=== PATIENT | male | born 1950 | race Caucasian/White ===

== ENCOUNTER 2017-10-25 21:01 | Inpatient (IN) | payer OTHER, MEDICARE ==
[~2017-10-25] VITALS: Ht 180.3 cm; Wt 79.5 kg
[~2017-10-25 21:01] MED LIST: ADVI200C9; ALLO300; GLYB1TAB51; LISI10TA; LORT5TAB; [UNRECOGNIZED DRUG - CODE]
[2017-10-25 21:12] VITALS: BP 110/59; PULSE 99; RESP 18; TEMP 98.6; O2SAT 99
[2017-10-25] MEDS ORDERED: LANTUS2P SQ (21:28)
[2017-10-25] MEDS ORDERED: ESCI20TA PO (21:28)
[2017-10-25] MEDS ORDERED: METF1000 PO (21:28)
[2017-10-25] MEDS ORDERED: METO5TAB3 PO (21:28)
[2017-10-25] MEDS ORDERED: PANT40TA3 PO (21:28)
[2017-10-25] MEDS ORDERED: PIOG45TA5 PO (21:28)
[2017-10-25] MEDS ORDERED: CLOP75TA PO (21:28)
[2017-10-25] MEDS ORDERED: ROPI0.25 PO (21:28)
[2017-10-25] MEDS ORDERED: ALFU10TA2 PO (21:28)
[2017-10-25] MEDS ORDERED: IBUP200C PO (21:28)
[2017-10-25] MEDS ORDERED: INSU1.2I SQ (21:28)
[2017-10-25] MEDS ORDERED: FINA5TAB2 (21:28)
[2017-10-25] MEDS ORDERED: GABA100C4 PO (21:28)
[2017-10-25] MEDS ORDERED: FURO20TA PO (21:28)
[2017-10-25 21:30] VITALS: BP 126/71; PULSE 91; RESP 20; O2SAT 97
[2017-10-25 22:03] LABS: AUTOMATED NEUTROPHIL # 4.7 TH/MM3 (1.8-7.7); BASOPHIL # 0.1 TH/MM3 (0-0.2); EOSINOPHIL # 0.1 TH/MM3 (0-0.4); EOSINOPHIL % 1.2 % (0.0-4.0); HEMATOCRIT 38.9 % (39.0-51.0); LYMPH % 19.1 % (9.0-44.0); LYMPHOCYTE # 1.3 TH/MM3 (1.0-4.8); MEAN CORPUSCULAR HEMOGLOBIN 29.4 PG (27.0-34.0); MEAN CORPUSCULAR HGB CONC 33.5 % (32.0-36.0); MEAN PLATELET VOLUME 9.7 FL (7.0-11.0); MONO % 7.1 % (0.0-8.0); MONOCYTE # 0.5 TH/MM3 (0-0.9); NEUT % 71.6 % (16.0-70.0); PLATELET COUNT 225 TH/MM3 (150-450); RED BLOOD COUNT 4.43 MIL/MM3 (4.50-5.90); RED CELL DISTRIBUTION WIDTH 13.8 % (11.6-17.2); WHITE BLOOD COUNT 6.6 TH/MM3 (4.0-11.0)
--- NOTE | 2017-10-25 22:07 | RADRPT ---
EXAM DATE/TIME: 10/25/2017 21:39 [place] COMPARISON: No previous studies available for comparison. INDICATIONS : Chest pain MEDICAL HISTORY : Hypertension. Cardiovascular disease. SURGICAL HISTORY : CABG. Coronary artery stent. ENCOUNTER: Initial ACUITY: 1 day PAIN SCORE: 4/10 LOCATION: chest FINDINGS: Median sternotomy wires are noted status post cardiac surgery. The heart is normal. The pulmonary vas cular pattern is normal. The lungs are clear. Degenerative changes are noted throughout the thoracic spine. CONCLUSION: No acute cardiopulmonary disease. Alireza Robert MD on October 25, 2017 at 22:05 Board Certified Radiologist. This report was verified electronically.
[2017-10-25 22:11] LABS: ALBUMIN 3.4 GM/DL (3.4-5.0); ALT (GPT) 17 U/L (12-78); AST (GOT) 11 U/L (15-37); BICARBONATE 25.1 MEQ/L (21.0-32.0); BLOOD UREA NITROGEN 33 MG/DL (7-18); CALCIUM 8.9 MG/DL (8.5-10.1); CHLORIDE 88 MEQ/L (98-107); CREATININE 1.36 MG/DL (0.60-1.30); GLOMERULAR FILTRATION RATE 53 ML/MIN (>89); SODIUM (NA) 127 MEQ/L (136-145)
[2017-10-25 22:18] LABS: ALKALINE PHOSPHATASE 59 U/L (45-117); TOTAL BILIRUBIN ADULT 0.5 MG/DL (0.2-1.0); TOTAL PROTEIN 6.5 GM/DL (6.4-8.2); TROPONIN I LESS THAN 0.02 NG/ML (0.02-0.05)
[2017-10-25 22:19] LABS: GLUCOSE,RANDOM 597 MG/DL (74-106)
[2017-10-25] MEDS ORDERED: INSULIN HUMAN REGULAR 1,000 UNITS/10 ML VIAL IV PUSH ONE ×2 (22:30→23:15)
[2017-10-25] MEDS ORDERED: SODIUM CHLOR 0.9% 250 ML INJ 250 ML IV ONE ×2 (22:30→23:15)
[2017-10-25 22:34] VITALS: BP 132/71; PULSE 79; RESP 16; O2SAT 98
[2017-10-25] MEDS ORDERED: INSULIN HUMAN REGULAR 1,000 UNITS/10 ML VIAL SQ ONE (23:15)
--- NOTE | 2017-10-25 23:22 | PD ---
HPI Chief Complaint: Medical Clearance Time Seen by Provider: 21:21 Travel History International Travel<30 days: No Contact w/Intl Traveler<30days: No Traveled to known affect area: No History of Present Illness HPI Patient is a 66-year-old male who has diabetes CAD open heart surgery history patient has lower leg edema chronic patient is coming in because he was feeling dizzy and chest strangeness. He is not saying pain but it just felt unusual. Patient also had left-sided and right-sided rib area pain but it is reproducible and possibly costochondritis. Patient fingerstick at home his meter goes up to 700 it was over 700 the reading was high. Patient's neighbor brought him in because he was not feeling well feeling nauseous chest pain and the hyperglycemia higher than his meter could detect. He reports he has been eating poorly been cookies and sugar more than he should however he does drink diet soda and diet coffee. In the ER he is awake alert no significant distress and he is nontoxic appearing awake conversant He has a very pleasant caring neighbor friend is bedside .. he is on Lantus 15 units twice daily as well as metoprolol and a few other p.o. anti-hyperglycemic meds Pt and friend reports he is sneeking cookies and soda that maybe the cause of his Hyperglycemia , but there has been no missed doses of his meds PFSH Past Medical History Hx Anticoagulant Therapy: Yes Autoimmune Disease: No Blood Disorders: No Depression: Yes Cancer: Yes Cardiovascular Problems: Yes High Cholesterol: Yes Chest Pain: Yes Cerebrovascular Accident: No Diabetes: Yes (Metformin) Patient Takes Glucophage: Yes Diminished Hearing: Yes Gastrointestinal Disorders: No GERD: Yes Genitourinary: Yes Headaches: No Hypertension: Yes Kidney Stones: Yes Musculoskeletal: No Neurologic: No Psychiatric: No Reproductive: No Respiratory: Yes Seizures: No Tetanus Vaccination: < 5 Years Influenza Vaccination: Yes Past Surgical History Abdominal Surgery: Yes (Colon resection) Cardiac Surgery: No Ear Surgery: Yes Endocrine Surgery: No Eye Surgery: No Genitourinary Surgery: No Gynecologic Surgery: No Joint Replacement: Yes (RT HIP) Oral Surgery: No Thoracic Surgery: No Other Surgery: Yes Social History Alcohol Use: Yes (RARE) Tobacco Use: No (QUIT 11 YRS AGO) Substance Use: No Allergies-Medications (Allergen,Severity, Reaction): Coded Allergies: penicillin G (Unverified Allergy, Mild, RASH, 10/25/17) milk (Unverified Adverse Reaction, Unknown, UPSET STOMACH, 10/25/17) Reported Meds & Prescriptions Reported Meds & Active Scripts Active Reported Ibuprofen 200 Mg Cap 200 Mg PO Q6H PRN Review of Systems Except as stated in HPI: all other systems reviewed are Neg Physical Exam Narrative GENERAL: Nontoxic appearing awake alert SKIN: Warm and dry. HEAD: Atraumatic. Normocephalic. EYES: Pupils equal and round. No scleral icterus. No injection or drainage. ENT: No nasal bleeding or discharge. Mucous membranes pink and moist. NECK: Trachea midline. No JVD. paracervical neck tenderness CARDIOVASCULAR: Regular rate and rhythm. Midline sternotomy scar well-healed RESPIRATORY: No accessory muscle use. Clear to auscultation. Breath sounds equal bilaterally. Clear to auscultation with mild decreased breath sounds in the right lower lung GASTROINTESTINAL: Abdomen soft, non-tender, nondistended. Hepatic and splenic margins not palpable. MUSCULOSKELETAL: Extremities without clubbing, cyanosis, or edema. No obvious deformities. CHEST WALL REPROCUBIBLE PAIN RIGHT LATeral ribs no vesicles no hematoma NEUROLOGICAL: Awake and alert. No obvious cranial nerve deficits. Motor grossly within normal limits. Five out of 5 muscle strength in the arms and legs. Normal speech. PSYCHIATRIC: Appropriate mood and affect; insight and judgment normal. Data Data Last Documented VS Orders Orders Complete Blood Count With Diff (10/25/17 21:30) Comprehensive Metabolic Panel (10/25/17 21:30) Ckmb (Isoenzyme) Profile (10/25/17 21:30) Troponin I (10/25/17 21:30) Lipase (10/25/17 21:30) Chest, Pa & Lat (10/25/17 21:30) Beta Hydroxybutyrate (Acetone) (10/25/17 21:43) Insulin Human Regular Inj (Novolin R Inj (10/25/17 22:30) Sodium Chlor 0.9% 250 Ml Inj (Ns 250 Ml (10/25/17 22:30) Sodium Chlor 0.9% 250 Ml Inj (Ns 250 Ml (10/25/17 23:15) Sodium Chlor 0.9% 1000 Ml Inj (Ns 1000 M (10/25/17 23:15) Insulin Human Regular Inj (Novolin R Inj (10/25/17 23:15) Insulin Human Regular Inj (Novolin R Inj (10/25/17 23:15) Admit Order (Ed Use Only) (10/26/17 00:15) Labs Laboratory Tests Test 10/25/17 21:30 White Blood Count 6.6 TH/MM3 Red Blood Count 4.43 MIL/MM3 Hemoglobin 13.0 GM/DL Hematocrit 38.9 % Mean Corpuscular Volume 88.0 FL Mean Corpuscular Hemoglobin 29.4 PG Mean Corpuscular Hemoglobin Concent 33.5 % Red Cell Distribution Width 13.8 % Platelet Count 225 TH/MM3 Mean Platelet Volume 9.7 FL Neutrophils (%) (Auto) 71.6 % Lymphocytes (%) (Auto) 19.1 % Monocytes (%) (Auto) 7.1 % Eosinophils (%) (Auto) 1.2 % Basophils (%) (Auto) 1.0 % Neutrophils # (Auto) 4.7 TH/MM3 Lymphocytes # (Auto) 1.3 TH/MM3 Monocytes # (Auto) 0.5 TH/MM3 Eosinophils # (Auto) 0.1 TH/MM3 Basophils # (Auto) 0.1 TH/MM3 CBC Comment DIFF FINAL Differential Comment Blood Urea Nitrogen 33 MG/DL Creatinine 1.36 MG/DL Random Glucose 597 MG/DL Total Protein 6.5 GM/DL Albumin 3.4 GM/DL Calcium Level 8.9 MG/DL Alkaline Phosphatase 59 U/L Aspartate Amino Transf (AST/SGOT) 11 U/L Alanine Aminotransferase (ALT/SGPT) 17 U/L Total Bilirubin 0.5 MG/DL Sodium Level 127 MEQ/L Potassium Level 4.3 MEQ/L Chloride Level 88 MEQ/L Carbon Dioxide Level 25.1 MEQ/L Anion Gap 14 MEQ/L Estimat Glomerular Filtration Rate 53 ML/MIN Total Creatine Kinase 69 U/L Troponin I LESS THAN 0.02 NG/ML B-Type Natriuretic Peptide 35 PG/ML Lipase 185 U/L B-Hydroxybutyrate 2.50 MMOL/L MDM Medical Decision Making Medical Screen Exam Complete: Yes Emergency Medical Condition: Yes Differential Diagnosis hyperglycemia of exogenous PO sugar intake vs infection vs lack of exogenous insulin, stress reaction Narrative Course Pt hyperglycemic but not acidotic anion gap 14 I bolus IV 6 units R insulin and then SQ 4 more units and admit for glucose control. Pt is stable for MED SURG admit Scripts Hydrocodone-Acetaminophen (Hydrocodone-Acetaminophen) 5-325 mg Tab 1 TAB PO Q6H Y for PAIN, #30 TAB 0 Refills Prov: Shaun MalinJessenia DO 10/27/17 Adjust Aluminum Cane/Round (Adjust Aluminum Cane/Round) 1 Mis Mis EA .XX DIRECTED for GAIT INSTABILITY, #1 Prov: LizzyuriShaunJessenia DO 10/27/17 Pen Needle, Diabetic (Pen [place]) 32 Gauge X 5/32" Dis.needle BOX BID for Blood Sugar Management, #1 11 Refills Prov: LizzyuriShaun M. DO 10/27/17 Insulin Glargine Inj (Toujeo Solostar Pen Inj) 300 Unit/Ml Pen 30 UNITS SQ BID for Blood Sugar Management for 30 Days, #7 PEN 0 Refills Prov: PraveenShaun guevara DO 10/27/17 Insulin Aspart Inj (Novolog Inj) 1,000 Unit/10 Ml Vial 5 UNITS SQ TIDAC for Blood Sugar Management, #3 INJECTION Prov: Shaun Malin DO 10/27/17 Meclizine HCl (Meclizine 25) 25 Mg Tab 25 MG PO Q8HR for Vertigo, #90 TAB Prov: Shaun Malin DO 10/27/17 Ropinirole (Ropinirole) 0.25 Mg Tab 0.25 MG PO TID for RLS, #90 TAB 0 Refills Prov: PraveenShaun guevara DO 10/27/17 Escitalopram (Escitalopram) 20 Mg Tab 20 MG PO DAILY for Anxiety, #30 TAB 0 Refills Prov: Shaun Malin DO 10/27/17 Finasteride (Finasteride) 5 Mg Tab 5 MG PO DAILY for Manage Prostate Problems, #30 TAB 0 Refills Do not crush. Prov: Shaun Malin DO 10/27/17 Clopidogrel (Clopidogrel) 75 Mg Tab 75 MG PO DAILY for Blood Clot Prevention, #30 TAB 0 Refills Prov: Shaun Malin DO 10/27/17 Metformin (Metformin) 1,000 Mg Tab 1000 MG PO BIDPC for Blood Sugar Management, #60 TAB 0 Refills Prov: Shaun Malin DO 10/27/17 Alfuzosin ER 24 HR (Alfuzosin ER 24 HR) 10 Mg Tab 10 MG PO DAILY for BPH, #30 TAB 0 Refills Prov: Shaun Malin DO 10/27/17 Furosemide (Furosemide) 20 Mg Tab 20 MG PO DAILY for Blood Pressure Management, #30 TAB 0 Refills Prov: Shaun Malin DO 10/27/17 Pioglitazone (Pioglitazone) 45 Mg Tab 45 MG PO DAILY for Blood Sugar Management, #30 TAB 0 Refills Prov: Shaun Malin DO 10/27/17 Metolazone (Metolazone) 5 Mg Tab 5 MG PO DAILY for Blood Pressure Management, #30 TAB 0 Refills Prov: Shaun Malin DO 10/27/17 Gabapentin (Gabapentin) 100 Mg Cap 100 MG PO TID for Pain Management, #90 CAP 0 Refills Prov: Shaun Malin DO 10/27/17 Pantoprazole (Pantoprazole) 40 Mg Tab 40 MG PO BID for Reflux, #60 TAB 0 Refills Prov: Shaun Malin DO 10/27/17 Earl Carrera MD Oct 25, 2017 23:22
[2017-10-26] VITALS (7 sets, daily range): BP systolic 98–128; BP diastolic 47–66; PULSE 76–94; RESP 16–19; TEMP 97.7–98.9; O2SAT 95–99
[2017-10-26] MEDS: SODIUM CHLOR 0.9% 1000 ML INJ 1,000 ML IV SCH ×2 (00:27→13:28)
[2017-10-26] MEDS ORDERED: SODIUM CHLOR 0.9% 1000 ML INJ 1,000 ML IV SCH (00:53)
[2017-10-26] MEDS ORDERED: SENNOSIDES 8.6 MG TAB PO PRN (01:00)
[2017-10-26] MEDS ORDERED: ACETAMINOPHEN 325 MG TAB PO PRN (01:00)
[2017-10-26] MEDS ORDERED: GLUCAGON 1 MG/ML VIAL OTHER PRN (01:00)
[2017-10-26] MEDS ORDERED: SODIUM CHLORIDE 0.9% FLUSH 10 ML FLUSH IV FLUSH PRN (01:00)
[2017-10-26] MEDS ORDERED: ONDANSETRON HCL 4 MG/2 ML VIAL IVP PRN (01:00)
[2017-10-26] MEDS ORDERED: NALOXONE HCL 0.4 MG/ML AMP IV PUSH PRN (01:00)
[2017-10-26] MEDS ORDERED: DEXTROSE 50% IN WATER 50 ML VIAL(D50) IV PUSH PRN (01:00)
[2017-10-26] MEDS ORDERED: MAGNESIUM HYDROXIDE SUSP 30 ML CUP PO PRN (01:00)
[2017-10-26] MEDS ORDERED: LACTULOSE SYRUP 20 GM/30 ML CUP PO PRN (01:00)
[2017-10-26] MEDS ORDERED: BISACODYL 10 MG SUPP RECTAL PRN (01:00)
[2017-10-26] MEDS: HEPARIN SODIUM - SQ 10,000 UNITS/ML VIAL SQ SCH ×2 (01:07→13:28)
--- NOTE | 2017-10-26 01:20 | HHI.HP ---
HPI Service [facility] Primary Care Physician No Primary Care Physician Admission Diagnosis Hyperglycemia Diagnoses: Chief Complaint: Dizziness, uncontrolled blood glucose Travel History International Travel<30 Days: No Contact w/Intl Traveler <30 Da: No Traveled to Known Affected Are: No History of Present Illness 66-year-old male with a medical history significant for coronary artery disease , CHF, diabetes, BPH presented to the hospital with complaint of uncontrolled blood glucose at home, bilateral leg swelling for the past week. Patient reports he lost about 100 pounds over this past year. He states that lately he has been drinking a lot of protein shakes from the gym. He does not read the labels regarding the sugar content. Patient also complained of some rib pain with deep breathing around his chest and flank area. He did say he has fallen a couple of times. He admitted that he has been eating poorly and not watching his diet. His blood glucose reading at home was over 700. He has been given insulin since arrival. He states he is feeling better. No more dizziness. Review of Systems Constitutional: DENIES: Fever, Chills Cardiovascular: COMPLAINS OF: Chest pain Musculoskeletal: COMPLAINS OF: Muscle aches, Stiffness Except as stated in HPI: all other systems reviewed are Neg Past Family Social History Past Medical History coronary artery disease, CHF, diabetes, BPH Past Surgical History Colon resection History of CABG Multiple cystoscopy Reported Medications Reported Meds & Active Scripts Active Reported Saad Tompkins Pen Inj (Insulin Glargine) 300 Unit/Ml Pen 30 Units SQ HS Lantus Inj (Insulin Glargine) 1,000 Unit/10 Ml Vial 15 Units SQ BID Ibuprofen 200 Mg Cap 200 Mg PO Q6H PRN Ropinirole 0.25 Mg Tab 0.25 Mg PO TID Escitalopram (Escitalopram Oxalate) 20 Mg Tab 20 Mg PO DAILY Finasteride 5 Mg Tab 5 Mg DAILY Do not crush. Clopidogrel (Clopidogrel Bisulfate) 75 Mg Tab 75 Mg PO DAILY Metformin (Metformin HCl) 1,000 Mg Tab 1,000 Mg PO BIDPC Alfuzosin ER 24 HR 10 Mg Tab 10 Mg PO DAILY Furosemide 20 Mg Tab 20 Mg PO DAILY Pioglitazone (Pioglitazone HCl) 45 Mg Tab 45 Mg PO DAILY Metolazone 5 Mg Tab 5 Mg PO DAILY Gabapentin 100 Mg Cap 100 Mg PO TID Pantoprazole (Pantoprazole Sodium) 40 Mg Tab 40 Mg PO BID [ Actoplus/Met] Allergies: Coded Allergies: penicillin G (Unverified Allergy, Mild, RASH, 10/25/17) milk (Unverified Adverse Reaction, Unknown, UPSET STOMACH, 10/25/17) Family History Reviewed and found to be noncontributory. Social History Patient quit using tobacco and alcohol 25 years ago. Physical Exam Vital Signs Vital Signs Date Time Temp Pulse Resp B/P (MAP) Pulse Ox O2 Delivery O2 Flow Rate FiO2 10/26/17 01:07 94 16 110/55 (73) 97 Room Air 10/25/17 22:34 79 16 132/71 (91) 98 Room Air 10/25/17 21:32 20 18 10/25/17 21:30 91 20 126/71 (89) 97 Room Air 10/25/17 21:12 98.6 99 18 110/59 (76) 99 Physical Exam GENERAL: Appears older than stated age. SKIN: No rashes, ecchymoses or lesions. Cool and dry. HEAD: Atraumatic. Normocephalic. No temporal or scalp tenderness. EYES: Pupils equal round and reactive. Extraocular motions intact. No scleral icterus. No injection or drainage. ENT: Nose without drainage. Uvula midline. Airway patent. NECK: Trachea midline. No JVD or lymphadenopathy. Supple, nontender, no meningeal signs. CARDIOVASCULAR: Regular rate and rhythm without murmurs, gallops, or rubs. RESPIRATORY: Clear to auscultation. Breath sounds equal bilaterally. No wheezes , rales, or rhonchi. GASTROINTESTINAL: Abdomen soft, non-tender, nondistended. No hepato-splenomegaly , or palpable masses. No guarding. MUSCULOSKELETAL: Some diffuse discomfort when I press on his rib cage. 2+ lower extremity edema NEUROLOGICAL: Awake and alert. Normal speech. Laboratory Laboratory Tests Test 10/25/17 21:30 White Blood Count 6.6 Red Blood Count 4.43 Hemoglobin 13.0 Hematocrit 38.9 Mean Corpuscular Volume 88.0 Mean Corpuscular Hemoglobin 29.4 Mean Corpuscular Hemoglobin Concent 33.5 Red Cell Distribution Width 13.8 Platelet Count 225 Mean Platelet Volume 9.7 Neutrophils (%) (Auto) 71.6 Lymphocytes (%) (Auto) 19.1 Monocytes (%) (Auto) 7.1 Eosinophils (%) (Auto) 1.2 Basophils (%) (Auto) 1.0 Neutrophils # (Auto) 4.7 Lymphocytes # (Auto) 1.3 Monocytes # (Auto) 0.5 Eosinophils # (Auto) 0.1 Basophils # (Auto) 0.1 CBC Comment DIFF FINAL Differential Comment Blood Urea Nitrogen 33 Creatinine 1.36 Random Glucose 597 Total Protein 6.5 Albumin 3.4 Calcium Level 8.9 Alkaline Phosphatase 59 Aspartate Amino Transf (AST/SGOT) 11 Alanine Aminotransferase (ALT/SGPT) 17 Total Bilirubin 0.5 Sodium Level 127 Potassium Level 4.3 Chloride Level 88 Carbon Dioxide Level 25.1 Anion Gap 14 Estimat Glomerular Filtration Rate 53 Total Creatine Kinase 69 Troponin I LESS THAN 0.02 Lipase 185 B-Hydroxybutyrate 2.50 Result Diagram: 10/25/17212910/25/172129 Imaging Last Impressions Chest X-Ray 10/25/172129 Signed Impressions: Service Date/Time: October 21:39 - CONCLUSION: No acute cardiopulmonary disease. Alireza Robert MD Capterei VTE Risk Assessment Caprini VTE Risk Assessment: Mod/High Risk (score >= 2) Caprini Risk Assessment Model Point Value = 1 Point Value = 2 Point Value = 3 Point Value = 5 Age 41-60 Minor surgery BMI > 25 kg/m2 Swollen legs Varicose veins or History of unexplained or recurrent spontaneous Oral contraceptives or hormone replacement Sepsis (< 1 month) Serious lung disease, including pneumonia (< 1 month) Abnormal pulmonary function Acute myocardial infarction Congestive heart failure (< 1 month) History of inflammatory bowel disease Medical patient at bed rest Age 61-74 Arthroscopic surgery Major open surgery (> 45 min) Laparoscopic surgery (> 45 min) Malignancy Confined to bed (> 72 hours) Immobilizing plaster cast Central venous access Age >= 75 History of VTE Family history of VTE Factor V Leiden Prothrombin [id number] Lupus anticoagulant Anticardiolipin antibodies Elevated serum homocysteine Heparin-induced thrombocytopenia Other congenital or acquired thrombophilia Stroke (< 1 month) Elective arthroplasty Hip, pelvis, or leg fracture Acute spinal cord injury (< 1 month) Prophylaxis Regimen Total Risk Factor Score Risk Level Prophylaxis Regimen 0-1 Low Early ambulation 2 Moderate Order ONE of the following: *Sequential Compression Device (SCD) *Heparin 5000 units SQ BID 3-4 Higher Order ONE of the following medications: *Heparin 5000 units SQ TID *Enoxaparin/Lovenox 40 mg SQ daily (WT < 150 kg, CrCl > 30 mL/min) *Enoxaparin/Lovenox 30 mg SQ daily (WT < 150 kg, CrCl > 10-29 mL/min) *Enoxaparin/Lovenox 30 mg SQ BID (WT < 150 kg, CrCl > 30 mL/min) AND/OR *Sequential Compression Device (SCD) 5 or more Highest Order ONE of the following medications: *Heparin 5000 units SQ TID (Preferred with Epidurals) *Enoxaparin/Lovenox 40 mg SQ daily (WT < 150 kg, CrCl > 30 mL/min) *Enoxaparin/Lovenox 30 mg SQ daily (WT < 150 kg, CrCl > 10-29 mL/min) *Enoxaparin/Lovenox 30 mg SQ BID (WT < 150 kg, CrCl > 30 mL/min) AND *Sequential Compression Device (SCD) Assessment and Plan Problem List: (1) Diabetes ICD Code: E11.9 - Type 2 diabetes mellitus without complications Plan: With marked hyperglycemia on presentation. Suspect this is secondary to noncompliance with diet. Patient has been given gentle IV fluid hydration and insulin. - Resume Lantus 15 units twice daily -Sliding scale insulin with Accu-Cheks. (2) Lower extremity edema ICD Code: R60.0 - Localized edema Plan: Patient reports he has intermittent edema but it has been worse over the past week or so. He is on Lasix and metolazone. No overt evidence of heart failure. He does need IV fluid at this time due to marked hyperglycemia as above. CYNTHIA recinos for now. Consider resuming diuretics once hyperglycemia better controlled and renal function improved.. (3) CAD (coronary artery disease) ICD Code: I25.10 - Atherosclerotic heart disease of [place] coronary artery without angina pectoris Status: Chronic Plan: Continue Plavix (4) Dehydration with hyponatremia ICD Code: E87.1 - Hypo-osmolality and hyponatremia (5) RADHA (acute kidney injury) ICD Code: N17.9 - Acute kidney failure, unspecified Plan: Gentle hydration Monitor renal functions. Hold diuretics Discussed Condition With Dr. Carrera Physician Certification 2 Midnight Certification Type: Admission for Inpatient Services Order for Inpatient Services The services are ordered in accordance with Medicare regulations or non- Medicare payer requirements, as applicable. In the case of services not specified as inpatient-only, they are appropriately provided as inpatient services in accordance with the 2-midnight benchmark. Estimated LOS (days): 2 days is the estimated time the patient will need to remain in the hospital, assuming treatment plan goals are met and no additional complications. Post-Hospital Plan: Home Problem Qualifiers (1) Diabetes: Qualified Codes: E11.65 - Type 2 diabetes mellitus with hyperglycemia; Z79.4 - salvage determiner (current) use of insulin Rojelio Shankar MD Oct 26, 2017 01:20
[2017-10-26 07:42] LABS: BICARBONATE 23.7 MEQ/L (21.0-32.0); CALCIUM 8.6 MG/DL (8.5-10.1); CREATININE 0.88 MG/DL (0.60-1.30)
[2017-10-26] MEDS ORDERED: INSULIN DETEMIR 100 UNITS/ML VIAL SQ SCH (09:00)
[2017-10-26] MEDS: FINASTERIDE 5 MG TAB PO SCH (11:08)
[2017-10-26] MEDS: PANTOPRAZOLE SOD 40 MG DELAYED RELEASE TAB PO SCH ×2 (11:08→21:46)
[2017-10-26] MEDS: GABAPENTIN 100 MG CAP PO SCH ×3 (11:09→18:46)
[2017-10-26] MEDS: ESCITALOPRAM OXALATE 20 MG TAB PO SCH (11:09)
[2017-10-26] MEDS: CLOPIDOGREL 75 MG TAB PO SCH (11:09)
[2017-10-26] MEDS: TAMSULOSIN HCL 0.4 MG CAP PO SCH (11:09)
[2017-10-26] MEDS: INSULIN ASPART SUPPLEMENTAL SCALE SQ SCH ×4 (11:11→22:04)
[2017-10-26] MEDS: SODIUM CHLORIDE 0.9% FLUSH 10 ML FLUSH IV FLUSH SCH ×2 (13:27→21:48)
--- NOTE | 2017-10-26 13:42 | HHI.PR ---
Subjective Remarks 66-year-old male with a medical history significant for coronary artery disease , CHF, diabetes, BPH presented to the hospital with complaint of uncontrolled blood glucose at home, bilateral leg swelling for the past week. Patient reports he lost about 100 pounds over this past year. He states that lately he has been drinking a lot of protein shakes from the gym. He does not read the labels regarding the sugar content. Patient also complained of some rib pain with deep breathing around his chest and flank area. He did say he has fallen a couple of times. He admitted that he has been eating poorly and not watching his diet. His blood glucose reading at home was over 700. He has been given insulin since arrival. He states he is feeling better. No more dizziness. 3-2 COMPLAINS OF DIZZINESS WEAKNESS UNCONTROLLED BLOOD SUGARS DW RN AND PT DM EDUCATION CONSULT NUTRITION Objective Vitals Vital Signs Date Time Temp Pulse Resp B/P (MAP) Pulse Ox O2 Delivery O2 Flow Rate FiO2 10/26/17 12:14 98.5 87 18 119/66 (83) 98 10/26/17 08:00 98.3 76 19 98/47 (64) 97 10/26/17 01:56 97.7 87 16 128/58 (81) 99 10/26/17 01:36 10/26/17 01:07 94 16 110/55 (73) 97 Room Air 10/25/17 22:34 79 16 132/71 (91) 98 Room Air 10/25/17 21:32 20 18 10/25/17 21:30 91 20 126/71 (89) 97 Room Air 10/25/17 21:12 98.6 99 18 110/59 (76) 99 I/O 10/25/17 10/25/17 10/25/17 10/26/17 10/26/17 10/26/17 07:00 15:00 23:00 07:00 15:00 23:00 Intake Total 500 ml 720 ml Output Total 850 ml Balance 500 ml -130 ml Intake Oral 720 ml IV Total 500 ml Output Urine Total 850 ml # Voids 2 # Bowel Movements 0 Result Diagram: 10/25/17 2130 10/26/17 0629 Other Results Laboratory Tests Test 10/25/17 21:30 10/26/17 06:29 White Blood Count 6.6 TH/MM3 Red Blood Count 4.43 MIL/MM3 Hemoglobin 13.0 GM/DL Hematocrit 38.9 % Mean Corpuscular Volume 88.0 FL Mean Corpuscular Hemoglobin 29.4 PG Mean Corpuscular Hemoglobin Concent 33.5 % Red Cell Distribution Width 13.8 % Platelet Count 225 TH/MM3 Mean Platelet Volume 9.7 FL Neutrophils (%) (Auto) 71.6 % Lymphocytes (%) (Auto) 19.1 % Monocytes (%) (Auto) 7.1 % Eosinophils (%) (Auto) 1.2 % Basophils (%) (Auto) 1.0 % Neutrophils # (Auto) 4.7 TH/MM3 Lymphocytes # (Auto) 1.3 TH/MM3 Monocytes # (Auto) 0.5 TH/MM3 Eosinophils # (Auto) 0.1 TH/MM3 Basophils # (Auto) 0.1 TH/MM3 CBC Comment DIFF FINAL Differential Comment Blood Urea Nitrogen 33 MG/DL 35 MG/DL Creatinine 1.36 MG/DL 0.88 MG/DL Random Glucose 597 MG/DL 296 MG/DL Total Protein 6.5 GM/DL Albumin 3.4 GM/DL Calcium Level 8.9 MG/DL 8.6 MG/DL Alkaline Phosphatase 59 U/L Aspartate Amino Transf (AST/SGOT) 11 U/L Alanine Aminotransferase (ALT/SGPT) 17 U/L Total Bilirubin 0.5 MG/DL Sodium Level 127 MEQ/L 132 MEQ/L Potassium Level 4.3 MEQ/L 3.8 MEQ/L Chloride Level 88 MEQ/L 97 MEQ/L Carbon Dioxide Level 25.1 MEQ/L 23.7 MEQ/L Anion Gap 14 MEQ/L 11 MEQ/L Estimat Glomerular Filtration Rate 53 ML/MIN 87 ML/MIN Total Creatine Kinase 69 U/L Troponin I LESS THAN 0.02 NG/ML B-Type Natriuretic Peptide 35 PG/ML Lipase 185 U/L B-Hydroxybutyrate 2.50 MMOL/L Imaging Last Impressions Chest X-Ray 10/25/172129 Signed Impressions: Service Date/Time: October 21:39 - CONCLUSION: No acute cardiopulmonary disease. Alireza Robert MD Objective Remarks GENERAL: Appears older than stated age. SKIN: No rashes, ecchymoses or lesions. Cool and dry. HEAD: Atraumatic. Normocephalic. No temporal or scalp tenderness. EYES: Pupils equal round and reactive. Extraocular motions intact. No scleral icterus. No injection or drainage. ENT: Nose without drainage. Uvula midline. Airway patent. Tongue is midline NECK: Trachea midline. No JVD or lymphadenopathy. Supple, nontender, no meningeal signs. CARDIOVASCULAR: Regular rate and rhythm without murmurs, gallops, or rubs. S1- S2 no S3 or S4 RESPIRATORY: Clear to auscultation. Breath sounds equal bilaterally. No wheezes , rales, or rhonchi. GASTROINTESTINAL: Abdomen soft, non-tender, nondistended. No hepato-splenomegaly , or palpable masses. No guarding. MUSCULOSKELETAL: Some diffuse discomfort when I press on his rib cage. 2 to 3+ lower extremity edema left great toe amputated NEUROLOGICAL: Awake and alert. Normal speech. Insight and judgment is somewhat limited mood and behavior is somewhat appropriate Medications and IVs Current Medications Insulin Human Regular (NovoLIN R INJ) 6 units ONCE ONCE IV PUSH Last administered on 10/25/17at 22:31; Start 10/25/17 at 22:30; Stop 10/25/17 at 23:16; Status DC Sodium Chloride 250 ml @ 250 mls/hr BOLUS ONCE IV Last administered on at 22:31; Start 10/25/17 at 22:30; Stop 10/25/17 at 23:29; Status DC Sodium Chloride 250 ml @ 250 mls/hr BOLUS ONCE IV Last administered on at 23:27; Start 10/25/17 at 23:15; Stop 10/26/17 at 00:14; Status DC Sodium Chloride 1,000 ml @ 84 mls/hr [id number] IV Last administered on 10/26/17at 00:27; Start 10/25/17 at 23:15; Stop 10/26/17 at 00:59; Status DC Insulin Human Regular (NovoLIN R INJ) 6 units ONCE ONCE IV PUSH Last administered on 10/25/17at 23:27; Start 10/25/17 at 23:15; Stop 10/25/17 at 23:16; Status DC Insulin Human Regular (NovoLIN R INJ) 4 units ONCE ONCE SQ Last administered on 10/25/17at 23:27; Start 10/25/17 at 23:15; Stop 10/25/17 at 23:17; Status DC Sodium Chloride 1,000 ml @ 100 mls/hr Q10H IV ; Start 10/26/17 at 00:53; Stop at 01:14; Status DC Sodium Chloride (NS Flush) 2 ml UNSCH PRN IV FLUSH FLUSH AFTER USING IV ACCESS ; Start 10/26/17 at 01:00 Sodium Chloride (NS Flush) 2 ml BID IV FLUSH ; Start 10/26/17 at 09:00 Acetaminophen (Tylenol) 650 mg Q4H PRN PO TEMP > 100.4; Start 10/26/17 at 01:00 Ondansetron HCl (Zofran Inj) 4 mg Q6H PRN IVP NAUSEA OR VOMITING; Start at 01:00 Heparin Sodium (Porcine) (Heparin Inj) 5,000 units Q12H SQ Last administered on 10/26/17at 01:07; Start 10/26/17 at 01:00 Naloxone HCl (Narcan Inj) 0.4 mg UNSCH PRN IV PUSH SEE LABEL COMMENTS; Start at 01:00 Magnesium Hydroxide (Milk Of Magnesia Liq) 30 ml Q12H PRN PO Mild constipation ; Start 10/26/17 at 01:00 Sennosides (Senokot) 17.2 mg Q12H PRN PO Moderate constipation; Start 10/26/17 at 01:00 Bisacodyl (Dulcolax Supp) 10 mg DAILY PRN RECTAL SEVERE CONSITIPATION; Start at 01:00 Lactulose (Lactulose Liq) 30 ml DAILY PRN PO SEVERE CONSITIPATION; Start at 01:00 Dextrose (D50w (Vial) Inj) 50 ml UNSCH PRN IV PUSH HYPOGLYCEMIA-SEE COMMENTS; Start 10/26/17 at 01:00 Glucagon (Glucagon Inj) 1 mg UNSCH PRN OTHER HYPOGLYCEMIA-SEE COMMENTS; Start 10/26/17 at 01:00 Insulin Aspart (NovoLOG SUPPLEMENTAL SCALE) 1 ACHS SLIDING SCALE SQ Last administered on 10/26/17at 11:11; Start 10/26/17 at 08:00 Clopidogrel Bisulfate (Plavix) 75 mg DAILY PO Last administered on 10/26/17at 11: 09; Start 10/26/17 at 09:00 Escitalopram Oxalate (Lexapro) 20 mg DAILY PO Last administered on 10/26/17 11: 09; Start 10/26/17 at 09:00 Finasteride (Proscar) 5 mg DAILY PO Last administered on 10/26/17 11:08; Start 10/26/17 at 09:00 Gabapentin (Neurontin) 100 mg TID PO Last administered on 10/26/17 11:09; Start 10/26/17 at 09:00 Insulin Detemir (Levemir Inj) 15 units BID SQ Last administered on 10/26/17 11: 10; Start 10/26/17 at 09:00 Pantoprazole Sodium (Protonix) 40 mg BID PO Last administered on 10/26/17 11:08 ; Start 10/26/17 at 09:00 Ropinirole HCl (Requip) 0.25 mg TID PO Last administered on 10/26/17 11:08; Start 10/26/17 at 09:00 Tamsulosin HCl (Flomax) 0.4 mg DAILY PO Last administered on 10/26/17 11:09; Start 10/26/17 at 09:00 A/P Problem List: (1) Diabetes ICD Code: E11.9 - Type 2 diabetes mellitus without complications Plan: With marked hyperglycemia on presentation. Suspect this is secondary to noncompliance with diet. Patient has been given gentle IV fluid hydration and insulin. - Resume Lantus 15 units twice daily -Sliding scale insulin with Accu-Cheks. (2) Lower extremity edema ICD Code: R60.0 - Localized edema Plan: Patient reports he has intermittent edema but it has been worse over the past week or so. He is on Lasix and metolazone. No overt evidence of heart failure. He does need IV fluid at this time due to marked hyperglycemia as above. CYNTHIA recinos for now. Consider resuming diuretics once hyperglycemia better controlled and renal function improved.. (3) CAD (coronary artery disease) ICD Code: I25.10 - Atherosclerotic heart disease of [place] coronary artery without angina pectoris Status: Chronic Plan: Continue Plavix (4) Dehydration with hyponatremia ICD Code: E87.1 - Hypo-osmolality and hyponatremia (5) RADHA (acute kidney injury) ICD Code: N17.9 - Acute kidney failure, unspecified Plan: Gentle hydration Monitor renal functions. Hold diuretics (6) Vertigo ICD Code: R42 - Dizziness and giddiness Plan: Antivert schedule (7) Generalized weakness ICD Code: R53.1 - Weakness Plan: PT and OT to eval and treat Assessment and Plan (1) Diabetes ICD Code: E11.9 - Type 2 diabetes mellitus without complications Plan: With marked hyperglycemia on presentation. Suspect this is secondary to noncompliance with diet. Patient has been given gentle IV fluid hydration and insulin. - Resume Lantus 15 units twice daily -Sliding scale insulin with Accu-Cheks. (2) Lower extremity edema ICD Code: R60.0 - Localized edema Plan: Patient reports he has intermittent edema but it has been worse over the past week or so. He is on Lasix and metolazone. No overt evidence of heart failure. He does need IV fluid at this time due to marked hyperglycemia as above. CYNTHIA jorje for now. Consider resuming diuretics once hyperglycemia better controlled and renal function improved.. (3) CAD (coronary artery disease) ICD Code: I25.10 - Atherosclerotic heart disease of [place] coronary artery without angina pectoris Status: Chronic Plan: Continue Plavix (4) Dehydration with hyponatremia ICD Code: E87.1 - Hypo-osmolality and hyponatremia (5) RADHA (acute kidney injury) ICD Code: N17.9 - Acute kidney failure, unspecified Plan: Gentle hydration Monitor renal functions. Hold diuretics Vertigo will add Antivert Gait instability and weakness We will add physical therapy and Occupational Therapy AM LABS Discharge Planning PENDING IMPROVEMENT OF BLOOD SUGARS DM EDUCATION Problem Qualifiers (1) Diabetes: Qualified Codes: E11.65 - Type 2 diabetes mellitus with hyperglycemia; Z79.4 - [facility] (current) use of insulin Shaun Malin DO Oct 26, 2017 13:42
[2017-10-26] MEDS: METOLAZONE 5 MG TAB PO SCH (17:02)
[2017-10-26] MEDS: PIOGLITAZONE HCL 45 MG TAB PO SCH (17:02)
[2017-10-26] MEDS: MECLIZINE HCL 25 MG TAB PO SCH ×2 (17:03→21:46)
--- NOTE | 2017-10-26 18:06 | EKG ---
Date Performed: 10/25/2017 Time Performed: 21:26:29 PTAGE: 66 years EKG: Normal Sinus rhythm with bigeminal PACs Intraventricular conduction delay Compared to previous tracing, the patient is n ow in an atrial bigeminy with an intraventricular conduction delay. ABNORMAL ECG PREVIOUS TRACING : 04/13/2005 09.35 DOCTOR: Krys Greer Interpretating Date/Time 10/26/2017 18:05:44
[2017-10-26] MEDS: INSULIN ASPART 1,000 UNITS/10 ML VIAL SQ SCH (18:47)
[2017-10-26] MEDS: INSULIN DETEMIR 100 UNITS/ML VIAL SQ SCH (22:05)
[2017-10-27] MEDS: HEPARIN SODIUM - SQ 10,000 UNITS/ML VIAL SQ SCH (01:09)
[2017-10-27 04:33] VITALS: BP 100/56; PULSE 78; RESP 18; TEMP 97.9; O2SAT 96
[2017-10-27 05:43] LABS: AUTOMATED NEUTROPHIL # 2.4 TH/MM3 (1.8-7.7); BASOPHIL % 1.1 % (0.0-2.0); EOSINOPHIL # 0.1 TH/MM3 (0-0.4); EOSINOPHIL % 2.4 % (0.0-4.0); HEMATOCRIT 34.5 % (39.0-51.0); HEMOGLOBIN 12.1 GM/DL (13.0-17.0); LYMPH % 36.5 % (9.0-44.0); LYMPHOCYTE # 1.7 TH/MM3 (1.0-4.8); MEAN CELL VOLUME 85.5 FL (80.0-100.0); MEAN CORPUSCULAR HEMOGLOBIN 29.9 PG (27.0-34.0); MONO % 7.3 % (0.0-8.0); MONOCYTE # 0.3 TH/MM3 (0-0.9); NEUT % 52.7 % (16.0-70.0); PLATELET COUNT 204 TH/MM3 (150-450); RED BLOOD COUNT 4.03 MIL/MM3 (4.50-5.90); RED CELL DISTRIBUTION WIDTH 13.9 % (11.6-17.2); WHITE BLOOD COUNT 4.6 TH/MM3 (4.0-11.0)
[2017-10-27 06:15] LABS: ALBUMIN 2.6 GM/DL (3.4-5.0); AST (GOT) 9 U/L (15-37); BICARBONATE 26.5 MEQ/L (21.0-32.0); BLOOD UREA NITROGEN 23 MG/DL (7-18); CALCIUM 8.4 MG/DL (8.5-10.1); CHLORIDE 104 MEQ/L (98-107); CREATININE 0.79 MG/DL (0.60-1.30); GLOMERULAR FILTRATION RATE 99 ML/MIN (>89); GLUCOSE,RANDOM 189 MG/DL (74-106); MAGNESIUM 1.8 MG/DL (1.5-2.5); SODIUM (NA) 138 MEQ/L (136-145)
[2017-10-27 06:21] LABS: ALKALINE PHOSPHATASE 39 U/L (45-117); ALT (GPT) 12 U/L (12-78); FREE T4 0.96 NG/DL (0.76-1.46); PHOSPHORUS 3.4 MG/DL (2.5-4.9); TOTAL BILIRUBIN ADULT 0.2 MG/DL (0.2-1.0); TOTAL PROTEIN 5.2 GM/DL (6.4-8.2)
[2017-10-27] MEDS: MECLIZINE HCL 25 MG TAB PO SCH (06:37)
[2017-10-27 08:15] VITALS: BP 139/68; PULSE 72; RESP 18; TEMP 97.9; O2SAT 96
[2017-10-27] MEDS ORDERED: FUROSEMIDE 20 MG TAB PO SCH (09:00)
[2017-10-27] MEDS: GABAPENTIN 100 MG CAP PO SCH (09:36)
[2017-10-27] MEDS: FINASTERIDE 5 MG TAB PO SCH (09:36)
[2017-10-27] MEDS: PIOGLITAZONE HCL 45 MG TAB PO SCH (09:36)
[2017-10-27] MEDS: CLOPIDOGREL 75 MG TAB PO SCH (09:36)
[2017-10-27] MEDS: ESCITALOPRAM OXALATE 20 MG TAB PO SCH (09:36)
[2017-10-27] MEDS: PANTOPRAZOLE SOD 40 MG DELAYED RELEASE TAB PO SCH (09:36)
[2017-10-27] MEDS: TAMSULOSIN HCL 0.4 MG CAP PO SCH (09:36)
[2017-10-27] MEDS: INSULIN DETEMIR 100 UNITS/ML VIAL SQ SCH (09:37)
[2017-10-27] MEDS: METOLAZONE 5 MG TAB PO SCH (09:37)
[2017-10-27] MEDS: INSULIN ASPART SUPPLEMENTAL SCALE SQ SCH (09:38)
[2017-10-27] MEDS: SODIUM CHLORIDE 0.9% FLUSH 10 ML FLUSH IV FLUSH SCH (09:39)
[2017-10-27] MEDS: INSULIN ASPART 1,000 UNITS/10 ML VIAL SQ SCH (09:39)
--- NOTE | 2017-10-27 11:57 | HHI.PR ---
Subjective Remarks 66-year-old male with a medical history significant for coronary artery disease , CHF, diabetes, BPH presented to the hospital with complaint of uncontrolled blood glucose at home, bilateral leg swelling for the past week. Patient reports he lost about 100 pounds over this past year. He states that lately he has been drinking a lot of protein shakes from the gym. He does not read the labels regarding the sugar content. Patient also complained of some rib pain with deep breathing around his chest and flank area. He did say he has fallen a couple of times. He admitted that he has been eating poorly and not watching his diet. His blood glucose reading at home was over 700. He has been given insulin since arrival. He states he is feeling better. No more dizziness. 3-2 COMPLAINS OF DIZZINESS WEAKNESS UNCONTROLLED BLOOD SUGARS DW RN AND PT DM EDUCATION CONSULT NUTRITION 3-3 WANTS TO GO HOME TODAY SEEN BY PT AND OT WANTS HHC DW RN AND PT DC TO HOME TODAY DM MEDS ADJUSTED NEEDS NEW PCP FOR FOLLOW UP Objective Vitals Vital Signs Date Time Temp Pulse Resp B/P (MAP) Pulse Ox O2 Delivery O2 Flow Rate FiO2 10/27/17 08:15 97.9 72 18 139/68 (91) 96 10/27/17 04:33 97.9 78 18 100/56 (71) 96 10/26/17 23:44 98.4 78 18 98/52 (67) 95 10/26/17 20:40 98.1 81 18 100/64 (76) 95 10/26/17 15:31 98.9 81 18 105/55 (72) 97 10/26/17 12:14 98.5 87 18 119/66 (83) 98 I/O 10/26/17 10/26/17 10/26/17 10/27/17 10/27/17 10/27/17 07:00 15:00 23:00 07:00 15:00 23:00 Intake Total 500 ml 1200 ml Output Total 850 ml Balance 500 ml 350 ml Intake Oral 1200 ml IV Total 500 ml Output Urine Total 850 ml # Voids 2 # Bowel Movements 0 Result Diagram: 10/27/17 0455 10/27/17 0455 Other Results Laboratory Tests Test 10/25/17 21:30 10/26/17 06:29 10/27/17 04:55 White Blood Count 6.6 TH/MM3 4.6 TH/MM3 Red Blood Count 4.43 MIL/MM3 4.03 MIL/MM3 Hemoglobin 13.0 GM/DL 12.1 GM/DL Hematocrit 38.9 % 34.5 % Mean Corpuscular Volume 88.0 FL 85.5 FL Mean Corpuscular Hemoglobin 29.4 PG 29.9 PG Mean Corpuscular Hemoglobin Concent 33.5 % 35.0 % Red Cell Distribution Width 13.8 % 13.9 % Platelet Count 225 TH/MM3 204 TH/MM3 Mean Platelet Volume 9.7 FL 9.0 FL Neutrophils (%) (Auto) 71.6 % 52.7 % Lymphocytes (%) (Auto) 19.1 % 36.5 % Monocytes (%) (Auto) 7.1 % 7.3 % Eosinophils (%) (Auto) 1.2 % 2.4 % Basophils (%) (Auto) 1.0 % 1.1 % Neutrophils # (Auto) 4.7 TH/MM3 2.4 TH/MM3 Lymphocytes # (Auto) 1.3 TH/MM3 1.7 TH/MM3 Monocytes # (Auto) 0.5 TH/MM3 0.3 TH/MM3 Eosinophils # (Auto) 0.1 TH/MM3 0.1 TH/MM3 Basophils # (Auto) 0.1 TH/MM3 0.0 TH/MM3 CBC Comment DIFF FINAL DIFF FINAL Differential Comment Blood Urea Nitrogen 33 MG/DL 35 MG/DL 23 MG/DL Creatinine 1.36 MG/DL 0.88 MG/DL 0.79 MG/DL Random Glucose 597 MG/DL 296 MG/DL 189 MG/DL Total Protein 6.5 GM/DL 5.2 GM/DL Albumin 3.4 GM/DL 2.6 GM/DL Calcium Level 8.9 MG/DL 8.6 MG/DL 8.4 MG/DL Alkaline Phosphatase 59 U/L 39 U/L Aspartate Amino Transf (AST/SGOT) 11 U/L 9 U/L Alanine Aminotransferase (ALT/SGPT) 17 U/L 12 U/L Total Bilirubin 0.5 MG/DL 0.2 MG/DL Sodium Level 127 MEQ/L 132 MEQ/L 138 MEQ/L Potassium Level 4.3 MEQ/L 3.8 MEQ/L 3.7 MEQ/L Chloride Level 88 MEQ/L 97 MEQ/L 104 MEQ/L Carbon Dioxide Level 25.1 MEQ/L 23.7 MEQ/L 26.5 MEQ/L Anion Gap 14 MEQ/L 11 MEQ/L 8 MEQ/L Estimat Glomerular Filtration Rate 53 ML/MIN 87 ML/MIN 99 ML/MIN Total Creatine Kinase 69 U/L Troponin I LESS THAN 0.02 NG/ML B-Type Natriuretic Peptide 35 PG/ML Lipase 185 U/L B-Hydroxybutyrate 2.50 MMOL/L Phosphorus Level 3.4 MG/DL Magnesium Level 1.8 MG/DL Free Thyroxine 0.96 NG/DL Thyroid Stimulating Hormone 3rd Gen 0.845 uIU/ML Imaging Last Impressions Chest X-Ray 10/25/172129 Signed Impressions: Service Date/Time: October 21:39 - CONCLUSION: No acute cardiopulmonary disease. Alireza Robert MD Objective Remarks GENERAL: Appears older than stated age. SKIN: No rashes, ecchymoses or lesions. Cool and dry. HEAD: Atraumatic. Normocephalic. No temporal or scalp tenderness. EYES: Pupils equal round and reactive. Extraocular motions intact. No scleral icterus. No injection or drainage. ENT: Nose without drainage. Uvula midline. Airway patent. Tongue is midline NECK: Trachea midline. No JVD or lymphadenopathy. Supple, nontender, no meningeal signs. CARDIOVASCULAR: Regular rate and rhythm without murmurs, gallops, or rubs. S1- S2 no S3 or S4 RESPIRATORY: Clear to auscultation. Breath sounds equal bilaterally. No wheezes , rales, or rhonchi. GASTROINTESTINAL: Abdomen soft, non-tender, nondistended. No hepato-splenomegaly , or palpable masses. No guarding. MUSCULOSKELETAL: Some diffuse discomfort when I press on his rib cage. 2 to 3+ lower extremity edema left great toe amputated NEUROLOGICAL: Awake and alert. Normal speech. Insight and judgment is somewhat limited mood and behavior is somewhat appropriate Procedures NONE Medications and IVs Current Medications Insulin Human Regular (NovoLIN R INJ) 6 units ONCE ONCE IV PUSH Last administered on 10/25/17at 22:31; Start 10/25/17 at 22:30; Stop 10/25/17 at 23:16; Status DC Sodium Chloride 250 ml @ 250 mls/hr BOLUS ONCE IV Last administered on at 22:31; Start 10/25/17 at 22:30; Stop 10/25/17 at 23:29; Status DC Sodium Chloride 250 ml @ 250 mls/hr BOLUS ONCE IV Last administered on at 23:27; Start 10/25/17 at 23:15; Stop 10/26/17 at 00:14; Status DC Sodium Chloride 1,000 ml @ 84 mls/hr [id number] IV Last administered on 10/26/17at 13:28; Start 10/25/17 at 23:15; Stop 10/26/17 at 00:59; Status DC Insulin Human Regular (NovoLIN R INJ) 6 units ONCE ONCE IV PUSH Last administered on 10/25/17at 23:27; Start 10/25/17 at 23:15; Stop 10/25/17 at 23:16; Status DC Insulin Human Regular (NovoLIN R INJ) 4 units ONCE ONCE SQ Last administered on 10/25/17at 23:27; Start 10/25/17 at 23:15; Stop 10/25/17 at 23:17; Status DC Sodium Chloride 1,000 ml @ 100 mls/hr Q10H IV ; Start 10/26/17 at 00:53; Stop at 01:14; Status DC Sodium Chloride (NS Flush) 2 ml UNSCH PRN IV FLUSH FLUSH AFTER USING IV ACCESS ; Start 10/26/17 at 01:00 Sodium Chloride (NS Flush) 2 ml BID IV FLUSH Last administered on 10/27/17at 09: 39; Start 10/26/17 at 09:00 Acetaminophen (Tylenol) 650 mg Q4H PRN PO TEMP > 100.4; Start 10/26/17 at 01:00 Ondansetron HCl (Zofran Inj) 4 mg Q6H PRN IVP NAUSEA OR VOMITING; Start at 01:00 Heparin Sodium (Porcine) (Heparin Inj) 5,000 units Q12H SQ Last administered on 10/26/17at 13:28; Start 10/26/17 at 01:00 Naloxone HCl (Narcan Inj) 0.4 mg UNSCH PRN IV PUSH SEE LABEL COMMENTS; Start at 01:00 Magnesium Hydroxide (Milk Of Magnesia Liq) 30 ml Q12H PRN PO Mild constipation ; Start 10/26/17 at 01:00 Sennosides (Senokot) 17.2 mg Q12H PRN PO Moderate constipation; Start 10/26/17 at 01:00 Bisacodyl (Dulcolax Supp) 10 mg DAILY PRN RECTAL SEVERE CONSITIPATION; Start at 01:00 Lactulose (Lactulose Liq) 30 ml DAILY PRN PO SEVERE CONSITIPATION; Start at 01:00 Dextrose (D50w (Vial) Inj) 50 ml UNSCH PRN IV PUSH HYPOGLYCEMIA-SEE COMMENTS; Start 10/26/17 at 01:00 Glucagon (Glucagon Inj) 1 mg UNSCH PRN OTHER HYPOGLYCEMIA-SEE COMMENTS; Start 10/26/17 at 01:00 Insulin Aspart (NovoLOG SUPPLEMENTAL SCALE) 1 ACHS SLIDING SCALE SQ Last administered on 10/27/17at 09:38; Start 10/26/17 at 08:00 Clopidogrel Bisulfate (Plavix) 75 mg DAILY PO Last administered on 10/27/17at 09: 36; Start 10/26/17 at 09:00 Escitalopram Oxalate (Lexapro) 20 mg DAILY PO Last administered on 10/27/17at 09: 36; Start 10/26/17 at 09:00 Finasteride (Proscar) 5 mg DAILY PO Last administered on 10/27/17 09:36; Start 10/26/17 at 09:00 Gabapentin (Neurontin) 100 mg TID PO Last administered on 10/27/17at 09:36; Start 10/26/17 at 09:00 Insulin Detemir (Levemir Inj) 15 units BID SQ Last administered on 10/26/17at 11: 10; Start 10/26/17 at 09:00; Stop 10/26/17 at 13:48; Status DC Pantoprazole Sodium (Protonix) 40 mg BID PO Last administered on 10/27/17 09:36 ; Start 10/26/17 at 09:00 Ropinirole HCl (Requip) 0.25 mg TID PO Last administered on 10/27/17 09:36; Start 10/26/17 at 09:00 Tamsulosin HCl (Flomax) 0.4 mg DAILY PO Last administered on 10/27/17at 09:36; Start 10/26/17 at 09:00 Insulin Detemir (Levemir Inj) 30 units BID SQ Last administered on 10/27/17 09: 37; Start 10/26/17 at 21:00 Insulin Aspart (NovoLOG INJ) 5 units TIDAC SQ Last administered on 10/27/17 09: 39; Start 10/26/17 at 17:00 Meclizine HCl (Antivert) 25 mg Q8HR PO Last administered on 10/27/17 06:37; Start 10/26/17 at 14:00 Furosemide (Lasix) 20 mg DAILY PO Last administered on 10/27/17 09:36; Start at 09:00 Metolazone (Zaroxolyn) 5 mg DAILY PO Last administered on 10/27/17 09:37; Start 10/26/17 at 14:00 Pioglitazone HCl (Actos) 45 mg DAILY PO Last administered on 10/27/17 09:36; Start 10/26/17 at 14:00 A/P Problem List: (1) Diabetes ICD Code: E11.9 - Type 2 diabetes mellitus without complications Plan: With marked hyperglycemia on presentation. Suspect this is secondary to noncompliance with diet. Patient has been given gentle IV fluid hydration and insulin. - Resume Lantus 15 units twice daily -Sliding scale insulin with Accu-Cheks. (2) Lower extremity edema ICD Code: R60.0 - Localized edema Plan: Patient reports he has intermittent edema but it has been worse over the past week or so. He is on Lasix and metolazone. No overt evidence of heart failure. He does need IV fluid at this time due to marked hyperglycemia as above. CYNTHIA recinos for now. Consider resuming diuretics once hyperglycemia better controlled and renal function improved.. (3) CAD (coronary artery disease) ICD Code: I25.10 - Atherosclerotic heart disease of [place] coronary artery without angina pectoris Status: Chronic Plan: Continue Plavix (4) Dehydration with hyponatremia ICD Code: E87.1 - Hypo-osmolality and hyponatremia (5) RADHA (acute kidney injury) ICD Code: N17.9 - Acute kidney failure, unspecified Plan: Gentle hydration Monitor renal functions. Hold diuretics (6) Vertigo ICD Code: R42 - Dizziness and giddiness Plan: Antivert schedule (7) Generalized weakness ICD Code: R53.1 - Weakness Plan: PT and OT to eval and treat Assessment and Plan (1) Diabetes ICD Code: E11.9 - Type 2 diabetes mellitus without complications Plan: With marked hyperglycemia on presentation. Suspect this is secondary to noncompliance with diet. Patient has been given gentle IV fluid hydration and insulin. - Resume Lantus 15 units twice daily -Sliding scale insulin with Accu-Cheks. (2) Lower extremity edema ICD Code: R60.0 - Localized edema Plan: Patient reports he has intermittent edema but it has been worse over the past week or so. He is on Lasix and metolazone. No overt evidence of heart failure. He does need IV fluid at this time due to marked hyperglycemia as above. CYNTHIA hose for now. Consider resuming diuretics once hyperglycemia better controlled and renal function improved.. (3) CAD (coronary artery disease) ICD Code: I25.10 - Atherosclerotic heart disease of [place] coronary artery without angina pectoris Status: Chronic Plan: Continue Plavix (4) Dehydration with hyponatremia ICD Code: E87.1 - Hypo-osmolality and hyponatremia (5) RADHA (acute kidney injury) ICD Code: N17.9 - Acute kidney failure, unspecified Plan: Gentle hydration Monitor renal functions. Hold diuretics Vertigo will add Antivert Gait instability and weakness We will add physical therapy and Occupational Therapy AM LABS Discharge Planning WANTS TO GO HOME WITH [facility] Problem Qualifiers (1) Diabetes: Qualified Codes: E11.65 - Type 2 diabetes mellitus with hyperglycemia; Z79.4 - care home (current) use of insulin Shaun Malin DO Oct 27, 2017 11:57
[2017-10-27 12:00] VITALS: BP 144/71; PULSE 88; RESP 18; TEMP 98.6; O2SAT 97
[2017-10-27 12:08] LABS: HEMOGLOBIN A1C 16.3 % (4.3-6.0)
[2017-10-27] MEDS ORDERED: FURO20TA PO (12:12)
[2017-10-27] MEDS ORDERED: PIOG45TA5 PO (12:12)
[2017-10-27] MEDS ORDERED: NOVOLOGP2 SQ (12:12)
[2017-10-27] MEDS ORDERED: [UNRECOGNIZED DRUG - CODE] (12:12)
[2017-10-27] MEDS ORDERED: FINA5TAB2 PO (12:12)
[2017-10-27] MEDS ORDERED: PANT40TA3 PO (12:12)
[2017-10-27] MEDS ORDERED: METF1000 PO (12:12)
[2017-10-27] MEDS ORDERED: INSU1.2I SQ (12:12)
[2017-10-27] MEDS ORDERED: ESCI20TA PO (12:12)
[2017-10-27] MEDS ORDERED: ALFU10TA2 PO (12:12)
[2017-10-27] MEDS ORDERED: CLOP75TA PO (12:12)
[2017-10-27] MEDS ORDERED: METO5TAB3 PO (12:12)
[2017-10-27] MEDS ORDERED: MECL1TAB42 PO (12:12)
[2017-10-27] MEDS ORDERED: GABA100C4 PO (12:12)
[2017-10-27] MEDS ORDERED: ROPI0.25 PO (12:12)
--- NOTE | 2017-10-27 12:14 | HHI.FF ---
Face to Face Verification Diagnosis: (1) CAD (coronary artery disease) (2) Lower extremity edema (3) Dehydration with hyponatremia (4) RADHA (acute kidney injury) (5) Generalized weakness (6) Vertigo (7) Diabetes Physical Therapy Order: Evaluate and Treat, Improve ambulation, Strength and gait training Occupational Therapy Order: Evaluate and Treat, Improve ADL, Gross motor coordination, Fine motor coordination Home Health Nursing Order: Medical education Diabetic education Nursing assessment with vital signs Home Health Aide Order: To Assist In: Bathing and personal care, brain wave technician and meal prep I have seen patient Ankush Keene, III on 10/27/17. My clinical findings support the need for the requested home health care services because: Ltd mobility - disease progression Med compliance is questionable High risk of falls I certify that my clinical findings support that this patient is homebound because: Unsteady gait/balance Shaun Malin DO Oct 27, 2017 12:14
--- NOTE | 2017-10-27 12:15 | HHI.DS ---
Discharge Summary Admission Date Oct 26, 2017 at 00:17 Discharge Date: Oct 27, 2017 Admitting Diagnosis Hyperglycemia (1) Diabetes ICD Code: E11.9 - Type 2 diabetes mellitus without complications Diagnosis: Principal (2) Lower extremity edema ICD Code: R60.0 - Localized edema Diagnosis: Principal (3) CAD (coronary artery disease) ICD Code: I25.10 - Atherosclerotic heart disease of [place] coronary artery without angina pectoris Diagnosis: Secondary Status: Chronic (4) Dehydration with hyponatremia ICD Code: E87.1 - Hypo-osmolality and hyponatremia Diagnosis: Principal (5) RADHA (acute kidney injury) ICD Code: N17.9 - Acute kidney failure, unspecified Diagnosis: Principal (6) Vertigo ICD Code: R42 - Dizziness and giddiness Diagnosis: Principal (7) Generalized weakness ICD Code: R53.1 - Weakness Diagnosis: Principal Procedures NONE Brief History - From Admission 66-year-old male with a medical history significant for coronary artery disease , CHF, diabetes, BPH presented to the hospital with complaint of uncontrolled blood glucose at home, bilateral leg swelling for the past week. Patient reports he lost about 100 pounds over this past year. He states that lately he has been drinking a lot of protein shakes from the gym. He does not read the labels regarding the sugar content. Patient also complained of some rib pain with deep breathing around his chest and flank area. He did say he has fallen a couple of times. He admitted that he has been eating poorly and not watching his diet. His blood glucose reading at home was over 700. He has been given insulin since arrival. He states he is feeling better. No more dizziness. CBC/BMP: 10/27/17 0455 10/27/17 0455 Significant Findings Laboratory Tests Test 10/25/17 21:30 10/26/17 06:29 10/27/17 04:55 Red Blood Count 4.43 MIL/MM3 (4.50-5.90) 4.03 MIL/MM3 (4.50-5.90) Hematocrit 38.9 % (39.0-51.0) 34.5 % (39.0-51.0) Neutrophils (%) (Auto) 71.6 % (16.0-70.0) Blood Urea Nitrogen 33 MG/DL (7-18) 35 MG/DL (7-18) 23 MG/DL (7-18) Creatinine 1.36 MG/DL (0.60-1.30) Random Glucose 597 MG/DL (74-106) 296 MG/DL (74-106) 189 MG/DL (74-106) Aspartate Amino Transf (AST/SGOT) 11 U/L (15-37) 9 U/L (15-37) Sodium Level 127 MEQ/L (136-145) 132 MEQ/L (136-145) Chloride Level 88 MEQ/L (98-107) 97 MEQ/L (98-107) Estimat Glomerular Filtration Rate 53 ML/MIN (>89) 87 ML/MIN (>89) Troponin I LESS THAN 0.02 NG/ML B-Hydroxybutyrate 2.50 MMOL/L (0.00-0.39) Hemoglobin 12.1 GM/DL (13.0-17.0) Total Protein 5.2 GM/DL (6.4-8.2) Albumin 2.6 GM/DL (3.4-5.0) Calcium Level 8.4 MG/DL (8.5-10.1) Alkaline Phosphatase 39 U/L (45-117) Imaging Last Impressions Chest X-Ray 10/25/172129 Signed Impressions: Service Date/Time: October 21:39 - CONCLUSION: No acute cardiopulmonary disease. Alireza Robert MD PE at Discharge GENERAL: Appears older than stated age. SKIN: No rashes, ecchymoses or lesions. Cool and dry. HEAD: Atraumatic. Normocephalic. No temporal or scalp tenderness. EYES: Pupils equal round and reactive. Extraocular motions intact. No scleral icterus. No injection or drainage. ENT: Nose without drainage. Uvula midline. Airway patent. Tongue is midline NECK: Trachea midline. No JVD or lymphadenopathy. Supple, nontender, no meningeal signs. CARDIOVASCULAR: Regular rate and rhythm without murmurs, gallops, or rubs. S1- S2 no S3 or S4 RESPIRATORY: Clear to auscultation. Breath sounds equal bilaterally. No wheezes , rales, or rhonchi. GASTROINTESTINAL: Abdomen soft, non-tender, nondistended. No hepato-splenomegaly , or palpable masses. No guarding. MUSCULOSKELETAL: Some diffuse discomfort when I press on his rib cage. 2 to 3+ lower extremity edema left great toe amputated NEUROLOGICAL: Awake and alert. Normal speech. Insight and judgment is somewhat limited mood and behavior is somewhat appropriate Hospital Course 66-year-old male with a medical history significant for coronary artery disease , CHF, diabetes, BPH presented to the hospital with complaint of uncontrolled blood glucose at home, bilateral leg swelling for the past week. Patient reports he lost about 100 pounds over this past year. He states that lately he has been drinking a lot of protein shakes from the gym. He does not read the labels regarding the sugar content. Patient also complained of some rib pain with deep breathing around his chest and flank area. He did say he has fallen a couple of times. He admitted that he has been eating poorly and not watching his diet. His blood glucose reading at home was over 700. He has been given insulin since arrival. He states he is feeling better. No more dizziness. 3-2 COMPLAINS OF DIZZINESS WEAKNESS UNCONTROLLED BLOOD SUGARS DW RN AND PT DM EDUCATION CONSULT NUTRITION 3-3 WANTS TO GO HOME TODAY SEEN BY PT AND OT WANTS [facility] DW RN AND PT DC TO HOME TODAY DM MEDS ADJUSTED NEEDS NEW PCP FOR FOLLOW UP Pt Condition on Discharge: Good Discharge Disposition: Disch w/ Home Health Serv Discharge Time: > 30 minutes Discharge Instructions DIET: Follow Instructions for: Heart Healthy Diet, Diabetic Diet Speech Therapy-Diet Recommends: Regular Activities you can perform: Regular-No Restrictions, Weight Bearing as [place] Follow up Referrals: Endocrinology - 1 Week PCP Follow-up - 1 Week New Medications: Insulin Glargine Inj (Toujeo Solostar Pen Inj) 300 Unit/Ml Pen 30 UNITS SQ BID for Blood Sugar Management for 30 Days, #7 PEN 0 Refills Pen Needle, Diabetic (Pen [place]) 32 Gauge X 5/32" Dis.needle BOX BID for Blood Sugar Management, #1 11 Refills Insulin Aspart Inj (Novolog Inj) 1,000 Unit/10 Ml Vial 5 UNITS SQ TIDAC for Blood Sugar Management, #3 INJECTION Meclizine HCl (Meclizine 25) 25 Mg Tab 25 MG PO Q8HR for Vertigo, #90 TAB Changed Medications: Finasteride (Finasteride) 5 Mg Tab 5 MG PO DAILY for Manage Prostate Problems, #30 TAB 0 Refills (Medication details modified) Do not crush. Continued Medications: Alfuzosin ER 24 HR (Alfuzosin ER 24 HR) 10 Mg Tab 10 MG PO DAILY for BPH, #30 TAB 0 Refills (This prescription has been renewed) Clopidogrel (Clopidogrel) 75 Mg Tab 75 MG PO DAILY for Blood Clot Prevention, #30 TAB 0 Refills (This prescription has been renewed) Escitalopram (Escitalopram) 20 Mg Tab 20 MG PO DAILY for Anxiety, #30 TAB 0 Refills (This prescription has been renewed) Furosemide (Furosemide) 20 Mg Tab 20 MG PO DAILY for Blood Pressure Management, #30 TAB 0 Refills (This prescription has been renewed) Gabapentin (Gabapentin) 100 Mg Cap 100 MG PO TID for Pain Management, #90 CAP 0 Refills (This prescription has been renewed) Ibuprofen (Ibuprofen) 200 Mg Cap 200 MG PO Q6H PRN for PAIN SCALE 1 TO 7, CAP 0 Refills Metformin (Metformin) 1,000 Mg Tab 1000 MG PO BIDPC for Blood Sugar Management, #60 TAB 0 Refills (This prescription has been renewed) Metolazone (Metolazone) 5 Mg Tab 5 MG PO DAILY for Blood Pressure Management, #30 TAB 0 Refills (This prescription has been renewed) Pantoprazole (Pantoprazole) 40 Mg Tab 40 MG PO BID for Reflux, #60 TAB 0 Refills (This prescription has been renewed) Pioglitazone (Pioglitazone) 45 Mg Tab 45 MG PO DAILY for Blood Sugar Management, #30 TAB 0 Refills (This prescription has been renewed) Ropinirole (Ropinirole) 0.25 Mg Tab 0.25 MG PO TID for RLS, #90 TAB 0 Refills (This prescription has been renewed) Discontinued Medications: Insulin Glargine Inj (Lantus Inj) 1,000 Unit/10 Ml Vial 15 UNITS SQ BID for Blood Sugar Management, VIAL 0 Refills Insulin Glargine Inj (Toujeo Solostar Pen Inj) 300 Unit/Ml Pen 30 UNITS SQ HS for Blood Sugar Management, PEN 0 Refills [ Actoplus/Met] () Shaun Malin DO Oct 27, 2017 12:15
[2017-10-27] MEDS ORDERED: ADJUST ALUMINUM1 MI1 (12:18)
[2017-10-27] MEDS ORDERED: HYDR-3516 PO (12:54)
== END 2017-10-27 13:05 | disposition home health service (06) | DRG 638 ==
LOC: NEPC 21:01 → NEDA 10-26 00:17 → NEPHCDU 10-26 01:41
PROVIDERS: ADMIT Hospitalist; ATTEND Hospitalist
DX: E11.65 Type 2 diabetes mellitus with hyperglycemia (principal); E87.1 Hypo-osmolality and hyponatremia; N17.9 Acute kidney failure, unspecified; I50.9 Heart failure, unspecified; I11.0 Hypertensive heart disease with heart failure; E86.0 Dehydration; I25.10 Atherosclerotic heart disease of native coronary artery without angina pectoris; N40.0 Benign prostatic hyperplasia without lower urinary tract symptoms; H91.90 Unspecified hearing loss, unspecified ear; K21.9 Gastro-esophageal reflux disease without esophagitis; E78.00 Pure hypercholesterolemia, unspecified; F32.9 Major depressive disorder, single episode, unspecified; R26.9 Unspecified abnormalities of gait and mobility; Z95.1 Presence of aortocoronary bypass graft; Z95.5 Presence of coronary angioplasty implant and graft; Z87.891 Personal history of nicotine dependence; Z79.4 Long term (current) use of insulin; Z91.11 Patient's noncompliance with dietary regimen
CPT/HCPCS: 71046; 80048; 80053; 82010; 82550; 82948; 83036; 83690; 83735; 83880; 84100; 84439; 84443; 84484; 85025; 93005; 96361; 96372; 96374; 96375; J1644; J1815; J7030; J7050

== ENCOUNTER 2017-11-06 10:44 | Inpatient (IN) | payer OTHER, MEDICARE ==
[2017-11-06] VITALS (9 sets, daily range): BP systolic 100–180; BP diastolic 55–84; PULSE 96–112; RESP 16–20; TEMP 99.1; O2SAT 97–100
[~2017-11-06] VITALS: Ht 180.3 cm; Wt 90.8 kg
[~2017-11-06 10:44] MED LIST changes: +ADJUST ALUMINUM1 MI1; -ADVI200C9; +ALFU10TA2 PO; -ALLO300; +CLOP75TA PO; +ESCI20TA PO; +FINA5TAB2 PO; +FURO20TA PO; +GABA100C4 PO; -GLYB1TAB51; +HYDR-3516 PO; +IBUP200C PO; +INSU1.2I SQ; -LISI10TA; -LORT5TAB; +MECL1TAB42 PO; +METF1000 PO; +METO5TAB3 PO; +NOVOLOGP2 SQ; +PANT40TA3 PO; +PIOG45TA5 PO; +ROPI0.25 PO; +[UNRECOGNIZED DRUG - CODE]; -[UNRECOGNIZED DRUG - CODE]
[2017-11-06] MEDS ORDERED: SODIUM CHLORID 0.9% 500 ML INJ 500 ML IV ONE (11:45)
[2017-11-06] MEDS ORDERED: METOCLOPRAMIDE HCL 10 MG/2 ML VIAL IV PUSH ONE (11:45)
[2017-11-06] MEDS ORDERED: PANTOPRAZOLE SODIUM 40 MG VIAL IV PUSH ONE (11:45)
[2017-11-06] MEDS ORDERED: INSULIN DETEMIR 100 UNITS/ML VIAL SQ STA (11:50)
[2017-11-06] MEDS ORDERED: INSULIN ASPART 1,000 UNITS/10 ML VIAL SQ ONE (12:00)
[2017-11-06 12:06] LABS: BASOPHIL # 0.1 TH/MM3 (0-0.2); BASOPHIL % 0.4 % (0.0-2.0); EOSINOPHIL % 0.1 % (0.0-4.0); HEMATOCRIT 46.1 % (39.0-51.0); HEMOGLOBIN 15.1 GM/DL (13.0-17.0); LYMPH % 8.3 % (9.0-44.0); LYMPHOCYTE # 1.2 TH/MM3 (1.0-4.8); MEAN CELL VOLUME 92.1 FL (80.0-100.0); MEAN CORPUSCULAR HEMOGLOBIN 30.2 PG (27.0-34.0); MEAN CORPUSCULAR HGB CONC 32.8 % (32.0-36.0); MEAN PLATELET VOLUME 9.7 FL (7.0-11.0); MONO % 2.2 % (0.0-8.0); MONOCYTE # 0.3 TH/MM3 (0-0.9); PLATELET COUNT 271 TH/MM3 (150-450); RED BLOOD COUNT 5.01 MIL/MM3 (4.50-5.90); RED CELL DISTRIBUTION WIDTH 14.4 % (11.6-17.2); WHITE BLOOD COUNT 14.6 TH/MM3 (4.0-11.0)
[2017-11-06 12:30] LABS: ALBUMIN 3.8 GM/DL (3.4-5.0); ALKALINE PHOSPHATASE 64 U/L (45-117); ALT (GPT) 20 U/L (12-78); AST (GOT) 12 U/L (15-37); BICARBONATE 14.1 MEQ/L (21.0-32.0); BLOOD UREA NITROGEN 30 MG/DL (7-18); CALCIUM 9.4 MG/DL (8.5-10.1); CHLORIDE 85 MEQ/L (98-107); CREATININE 1.13 MG/DL (0.60-1.30); GLOMERULAR FILTRATION RATE 65 ML/MIN (>89); MAGNESIUM 2.1 MG/DL (1.5-2.5); TOTAL BILIRUBIN ADULT 0.5 MG/DL (0.2-1.0); TOTAL PROTEIN 7.3 GM/DL (6.4-8.2); TROPONIN I LESS THAN 0.02 NG/ML (0.02-0.05)
[2017-11-06 12:54] LABS: GLUCOSE,RANDOM 473 MG/DL (74-106)
[2017-11-06 12:55] LABS: SODIUM (NA) 121 MEQ/L (136-145)
[2017-11-06] MEDS ORDERED: SODIUM CHLOR 0.9% 1000 ML INJ 1,000 ML IV ONE (13:00)
--- NOTE | 2017-11-06 13:06 | PD ---
HPI Chief Complaint: Abdominal Pain Time Seen by Provider: 11:20 Travel History International Travel<30 days: No Contact w/Intl Traveler<30days: No Traveled to known affect area: No History of Present Illness HPI 66y male with a history of DM II, CAD with CABGx4, GERD, medication noncompliance presents to the ED via [facility] for nausea, vomiting and abdominal pain for 3 days. Says his symptoms started 3 days ago because he 'could not find his meds' and therefore has not taken any medication since then. Denies fevers but has felt chills. Last BM this morning which was normal for him. [facility] administered zofran 4mg IV with minimal improvement in symptoms. Says he has ' chest pain' located from his midsternal region to his midabdomen. Described as constant, non radiating and no palliative or provocative factors. Denies shortness of breath. Says he has no help at home to help him take his medications. He is a poor historian and easily agitated with my questions. PFSH Past Medical History Hx Anticoagulant Therapy: Yes Autoimmune Disease: No Blood Disorders: No Anxiety: No Depression: Yes Heart Rhythm Problems: Yes (A-FIB) Cancer: Yes (COLON) Cardiovascular Problems: Yes High Cholesterol: Yes Chemotherapy: No Chest Pain: Yes Congestive Heart Failure: Yes Cerebrovascular Accident: No Diabetes: Yes Patient Takes Glucophage: Yes Diminished Hearing: Yes Endocrine: Yes Gastrointestinal Disorders: Yes (COLON RESECTION) GERD: Yes Genitourinary: Yes Headaches: No Hiatal Hernia: No Hypertension: Yes Immune Disorder: No Implanted Vascular Access Dvce: Yes Kidney Stones: Yes Musculoskeletal: No Neurologic: Yes (TIA X 2) Psychiatric: Yes Reproductive: No Respiratory: Yes Migraines: No Radiation Therapy: No Renal Failure: No Seizures: No Thyroid Disease: No Ulcer: No Past Surgical History Abdominal Surgery: Yes (COLON RESECTION) AICD: No Arteriovenous Shunt: No Cardiac Surgery: Yes (STENT X 15, CABG X 4) Ear Surgery: Yes ( CHILD) Endocrine Surgery: No Eye Surgery: No Genitourinary Surgery: Yes (LITHOTRIPSY X5) Gynecologic Surgery: No Insulin Pump: No Joint Replacement: Yes (R HIP) Oral Surgery: No Pacemaker: No Thoracic Surgery: No Other Surgery: Yes Social History Alcohol Use: Yes (RARE) Tobacco Use: No (QUIT 11 YRS AGO) Substance Use: No Allergies-Medications (Allergen,Severity, Reaction): Coded Allergies: penicillin G (Unverified Allergy, Mild, RASH, 10/25/17) milk (Unverified Adverse Reaction, Unknown, UPSET STOMACH, 10/25/17) Reported Meds & Prescriptions Reported Meds & Active Scripts Active Hydrocodone-Acetaminophen 5-325 mg Tab 1 Tab PO Q6H PRN Toujeo Solostar Pen Inj (Insulin Glargine) 300 Unit/Ml Pen 30 Units SQ BID 30 Days Novolog Inj (Insulin Aspart) 1,000 Unit/10 Ml Vial 5 Units SQ TIDAC Meclizine 25 (Meclizine HCl) 25 Mg Tab 25 Mg PO Q8HR Ropinirole 0.25 Mg Tab 0.25 Mg PO TID Escitalopram (Escitalopram Oxalate) 20 Mg Tab 20 Mg PO DAILY Finasteride 5 Mg Tab 5 Mg PO DAILY Do not crush. Clopidogrel (Clopidogrel Bisulfate) 75 Mg Tab 75 Mg PO DAILY Metformin (Metformin HCl) 1,000 Mg Tab 1,000 Mg PO BIDPC Alfuzosin ER 24 HR 10 Mg Tab 10 Mg PO DAILY Furosemide 20 Mg Tab 20 Mg PO DAILY Pioglitazone (Pioglitazone HCl) 45 Mg Tab 45 Mg PO DAILY Metolazone 5 Mg Tab 5 Mg PO DAILY Gabapentin 100 Mg Cap 100 Mg PO TID Pantoprazole (Pantoprazole Sodium) 40 Mg Tab 40 Mg PO BID Reported Ibuprofen 200 Mg Cap 200 Mg PO Q6H PRN Review of Systems ROS Limitations: Poor Historian Except as stated in HPI: all other systems reviewed are Neg Physical Exam Narrative GENERAL: Well-developed, well-nourished with active vomiting. SKIN: Focused skin assessment warm/dry. HEAD: Atraumatic. Normocephalic. EYES: Pupils equal and round. No scleral icterus. No injection or drainage. ENT: No nasal bleeding or discharge. Mucous membranes pink and moist. NECK: Trachea midline. No JVD. CARDIOVASCULAR: Regular rate and rhythm. No murmur appreciated. RESPIRATORY: No accessory muscle use. Clear to auscultation. Breath sounds equal bilaterally. GASTROINTESTINAL: Abdomen soft,diffusely tender without rigidity MUSCULOSKELETAL: No obvious deformities. No clubbing. No cyanosis. No edema. NEUROLOGICAL: Awake and alert. No obvious cranial nerve deficits. Motor grossly within normal limits. Normal speech. PSYCHIATRIC: Appropriate mood and affect; insight and judgment normal. Data Data Last Documented VS Vital Signs Date Time Temp Pulse Resp B/P (MAP) Pulse Ox O2 Delivery O2 Flow Rate FiO2 11/06/17 13:14 112 18 159/74 (102) 98 Room Air Orders Orders Electrocardiogram (11/06/17 ) Complete Blood Count With Diff (11/06/17 11:32) Comprehensive Metabolic Panel (11/06/17 11:32) Lipase (11/06/17 11:32) Prothrombin Time / Inr (Pt) (11/06/17 11:32) Act Partial Throm Time (Ptt) (11/06/17 11:32) Urinalysis - C+S If Indicated (11/06/17 11:32) Iv Access Insert/Monitor (11/06/17 11:32) Ecg Monitoring (11/06/17 11:32) Oximetry (11/06/17 11:32) Ckmb (Isoenzyme) Profile (11/06/17 11:32) Magnesium (Mg) (11/06/17 11:32) Troponin I (11/06/17 11:32) Sodium Chlorid 0.9% 500 Ml Inj (Ns 500 M (11/06/17 11:45) Metoclopramide Inj (Reglan Inj) (11/06/17 11:45) Pantoprazole Inj (Protonix Inj) (11/06/17 11:45) Insulin Detemir Inj (Levemir Inj) (11/06/17 11:50) Insulin Aspart Inj (Novolog Inj) (11/06/17 12:00) Sodium Chlor 0.9% 1000 Ml Inj (Ns 1000 M (11/06/17 13:00) Arterial Blood Gas (Abg) (11/06/17 ) Beta Hydroxybutyrate (Acetone) (11/06/17 14:35) Admit Order (Ed Use Only) (11/06/17 14:35) Blood Glucose (11/06/17 14:35) Labs Laboratory Tests Test 11/06/17 11:49 11/06/17 13:16 White Blood Count 14.6 TH/MM3 Red Blood Count 5.01 MIL/MM3 Hemoglobin 15.1 GM/DL Hematocrit 46.1 % Mean Corpuscular Volume 92.1 FL Mean Corpuscular Hemoglobin 30.2 PG Mean Corpuscular Hemoglobin Concent 32.8 % Red Cell Distribution Width 14.4 % Platelet Count 271 TH/MM3 Mean Platelet Volume 9.7 FL Neutrophils (%) (Auto) 89.0 % Lymphocytes (%) (Auto) 8.3 % Monocytes (%) (Auto) 2.2 % Eosinophils (%) (Auto) 0.1 % Basophils (%) (Auto) 0.4 % Neutrophils # (Auto) 13.0 TH/MM3 Lymphocytes # (Auto) 1.2 TH/MM3 Monocytes # (Auto) 0.3 TH/MM3 Eosinophils # (Auto) 0.0 TH/MM3 Basophils # (Auto) 0.1 TH/MM3 CBC Comment DIFF FINAL Differential Comment Prothrombin Time 10.0 SEC Prothromb Time International Ratio 1.0 RATIO Activated Partial Thromboplast Time 21.1 SEC Blood Urea Nitrogen 30 MG/DL Creatinine 1.13 MG/DL Random Glucose 473 MG/DL Total Protein 7.3 GM/DL Albumin 3.8 GM/DL Calcium Level 9.4 MG/DL Magnesium Level 2.1 MG/DL Alkaline Phosphatase 64 U/L Aspartate Amino Transf (AST/SGOT) 12 U/L Alanine Aminotransferase (ALT/SGPT) 20 U/L Total Bilirubin 0.5 MG/DL Sodium Level 121 MEQ/L Potassium Level 3.9 MEQ/L Chloride Level 85 MEQ/L Carbon Dioxide Level 14.1 MEQ/L Anion Gap 22 MEQ/L Estimat Glomerular Filtration Rate 65 ML/MIN Phosphorus Level 4.6 MG/DL Total Creatine Kinase 47 U/L Troponin I LESS THAN 0.02 NG/ML Lipase 84 U/L B-Hydroxybutyrate 13.68 MMOL/L Urine Color LIGHT-YELLOW Urine Turbidity CLEAR Urine pH 5.0 Urine Specific [place] 1.029 Urine Protein NEG mg/dL Urine Glucose (UA) 1000 mg/dL Urine Ketones 150 mg/dL Urine Occult Blood NEG Urine Nitrite NEG Urine Bilirubin NEG Urine Urobilinogen LESS THAN 2.0 MG/DL Urine Leukocyte Esterase NEG Urine RBC LESS THAN 1 /hpf Urine WBC 1 /hpf Microscopic Urinalysis Comment CULT NOT INDICATED MDM Medical Decision Making Medical Screen Exam Complete: Yes Emergency Medical Condition: Yes Differential Diagnosis Medication noncompliance, HHS, DKA, dehydration Narrative Course 66y male with a history of DM II, CAD with CABGx4, GERD, medication noncompliance presents to the ED via [facility] for nausea, vomiting and abdominal pain for 3 days. Says his symptoms started 3 days ago because he 'could not find his meds' and therefore has not taken any medication since then. Denies fevers but has felt chills. Last BM this morning which was normal for him. [facility] administered zofran 4mg IV with minimal improvement in his nausea symptoms. Says he has 'chest pain' located from his midsternal region to his midabdomen. Described as constant, non radiating and no palliative or provocative factors. Pt ia easily agitated and keeps referring to the computer regarding his medical history. Vitals show BP 159/74, HR 110, SaO2 99% Spoke with Sue, rn case manager. She says that HHC was ordered at discharge 10/27/2017. Patient says he has not received HHC. Sue placed multiple phone calls to his insurance company and the HHC group without success. Labs are significant for leukocytosis of 14.6, likely secondary to the nausea with vomiting. Sodium 121, CO2 14.1, anion gap 22, BUN/creatinine 30/1.13, glucose 473, negative troponin and CK. Insulin, 1L NS bolus ordered for hyperglycemia. Pantoprazole for GERD. Reglan for nausea. After further evaluation and speaking with Dr. Ly and Dr. Malin, patient has DKA. He should be admitted to the ICU for monitoring and therapy. Pt admitted to Dr. Malin for DKA, hyponatremia, medication noncompliance. Diagnosis Primary Impression: Noncompliance with medication regimen Additional Impressions: Hyponatremia DKA (diabetic ketoacidoses) Qualified Codes: E11.10 - Type 2 diabetes mellitus with ketoacidosis without coma Admitting Information Admitting Physician Requests: Admit Condition: Stable Precious Cardenas Nov 06, 2017 13:06
[2017-11-06 13:50] LABS: BILIRUBIN, URINE NEG (NEG); BLOOD, URINE NEG (NEG); GLUCOSE,URINE 1000 mg/dL (NEG); KETONE, URINE 150 mg/dL (NEG); NITRITE,URINE NEG (NEG); URINE COLOR LIGHT-YELLOW (YELLW/STRAW); URINE LEUKOCYTE ESTERASE NEG (NEG)
[2017-11-06] MEDS ORDERED: DEXT 5%-NACL 0.9% 1000 ML INJ 1,000 ML IV SCH (14:52)
[2017-11-06] MEDS ORDERED: SODIUM CHLOR 0.9% 1000 ML INJ 1,000 ML IV SCH (14:52)
[2017-11-06] MEDS ORDERED: CHLORHEXIDINE GLUCONATE 2 % 1 PACK (2 CLOTHS) TOP PRN (15:00)
[2017-11-06] MEDS ORDERED: INSULIN HUMAN REGULAR 1,000 UNITS/10 ML VIAL IV PUSH ONE (15:00)
[2017-11-06] MEDS ORDERED: MISCELLANEOUS NURSING INFORMATION XX SCH (15:00)
[2017-11-06] MEDS ORDERED: POTASSIUM CHLOR 20 MEQ PREMIX 100 ML IV PRN ×5 (15:00)
[2017-11-06] MEDS ORDERED: INSULIN REGULAR (IV INFUSION) 100 UNITS in SODIUM CHLORIDE 0.9% INJ 99 ML IV PRN ×2 (15:00→16:45)
[2017-11-06] MEDS ORDERED: SODIUM PHOSPHATE INJ 15 MMOL in SODIUM CHLORIDE 0.9% INJ 100 ML IV PRN (15:00)
[2017-11-06] MEDS ORDERED: POTASSIUM CHLOR 40 MEQ PREMIX 100 ML IV PRN ×2 (15:00)
[2017-11-06] MEDS ORDERED: SODIUM BICARBONATE 8.4% SOLN 50 MEQ/50 ML VIAL IV PUSH PRN ×2 (15:00)
[2017-11-06] MEDS ORDERED: MAGNESIUM HYDROXIDE SUSP 30 ML CUP PO PRN (15:15)
[2017-11-06] MEDS ORDERED: SODIUM CHLORIDE 0.9% FLUSH 10 ML FLUSH IV FLUSH PRN (15:15)
[2017-11-06] MEDS ORDERED: MORPHINE SULFATE 2 MG/ML INJ IV PUSH PRN ×4 (15:15)
[2017-11-06] MEDS ORDERED: BISACODYL 10 MG SUPP RECTAL PRN (15:15)
[2017-11-06] MEDS ORDERED: METOCLOPRAMIDE HCL 10 MG/2 ML VIAL IV PUSH PRN (15:15)
[2017-11-06] MEDS ORDERED: LACTULOSE SYRUP 20 GM/30 ML CUP PO PRN (15:15)
[2017-11-06] MEDS ORDERED: ACETAMINOPHEN 325 MG TAB PO PRN (15:15)
[2017-11-06] MEDS ORDERED: SENNOSIDES 8.6 MG TAB PO PRN (15:15)
[2017-11-06] MEDS ORDERED: NALOXONE HCL 0.4 MG/ML AMP IV PUSH PRN (15:15)
--- NOTE | 2017-11-06 15:27 | HHI.HP ---
[facility] Service [facility] Primary Care Physician Unknown Admission Diagnosis hyperglycemia, noncompliance Diagnoses: (1) DKA (diabetic ketoacidoses) Diagnosis: Principal (2) Diabetes mellitus with hyperglycemia, with long-term current use of insulin Diagnosis: Principal (3) Noncompliance with medication regimen Diagnosis: Principal (4) Hyponatremia Diagnosis: Principal (5) Dehydration with hyponatremia Diagnosis: Secondary (6) Generalized weakness Diagnosis: Secondary (7) Diabetes Diagnosis: Principal (8) Vertigo Diagnosis: Secondary (9) RADHA (acute kidney injury) Diagnosis: Secondary (10) CAD (coronary artery disease) Diagnosis: Secondary Chief Complaint: Abdominal pain Travel History International Travel<30 Days: No Contact w/Intl Traveler <30 Da: No Traveled to Known Affected Are: No History of Present Illness Patient is a 66y male with a history of DM, CAD with CABGx4, GERD, medication noncompliance who presents to the ED via [facility] for nausea, vomiting and abdominal pain for 3 days. Says his symptoms started 3 days ago because he ' could not find his meds' and therefore has not taken any medication since then. Patient is a diabetic and is supposed to be insulin. He has not been taking any of his insulin. Presents with persistent nausea and vomiting over the past 3 days and is found to be in DKA. He denies fevers but has felt chills. Last BM this morning which was normal for him. [facility] administered zofran 4mg IV with minimal improvement in symptoms. Says he has 'chest pain' located from his midsternal region to his midabdomen. Described as constant, non radiating and no palliative or provocative factors. Patient has had lots of vomiting. Has had lots of issues with acid indigestion. Has not been taking any of his medications for at least the past 3 days if not longer Patient has blatant medical noncompliance Review of Systems Constitutional: COMPLAINS OF: Fatigue, Chills, Dizziness, Change in appetite, DENIES: Diaphoretic episodes, Fever, Weight gain, Weight loss, Night Sweats Endocrine: DENIES: Heat/cold intolerance, Polydipsia, Polyuria, Polyphagia Eyes: COMPLAINS OF: Blurred vision, DENIES: Diplopia, Eye inflammation, Eye pain, Vision loss, Photosensitivity, Double Vision Ears, nose, mouth, throat: DENIES: Tinnitus, Hearing loss, Vertigo, Nasal discharge, Oral lesions, Throat pain, Hoarseness, Ear Pain, Running Nose, Epistaxis, Sinus Pain, Toothache, Odynophagia Respiratory: DENIES: Apneas, Cough, Snoring, Wheezing, Hemoptysis, Sputum production, Shortness of breath Cardiovascular: COMPLAINS OF: Chest pain, DENIES: Palpitations, Syncope, Dyspnea on Exertion, PND, Lower Extremity Edema, Orthopnea, Claudication Gastrointestinal: COMPLAINS OF: Abdominal pain, Nausea, Vomiting, DENIES: Black stools, Bloody stools, Constipation, Diarrhea, Difficulty Swallowing, Anorexia Genitourinary: COMPLAINS OF: Urinary frequency, DENIES: Sexual dysfunction, Urinary incontinence, Urgency Musculoskeletal: DENIES: Joint pain, Muscle aches, Stiffness, Joint Swelling, Back pain, Neck pain Integumentary: DENIES: Abnormal pigmentation, Nail changes, Pruritus, Rash Hematologic/lymphatic: DENIES: Bruising, Lymphadenopathy Immunologic/allergic: DENIES: Eczema, Urticaria Neurologic: COMPLAINS OF: Poor Balance, DENIES: Abnormal gait, Headache, Localized weakness, Paresthesias, Seizures, Speech Problems, Tremor Psychiatric: COMPLAINS OF: Anxiety, Depression, DENIES: Confusion, Mood changes , Hallucinations, Agitation, Suicidal Ideation, Homicidal Ideation, Delusions Except as stated in HPI: all other systems reviewed are Neg Past Family Social History Past Medical History Diabetes mellitus insulin requiring uncontrolled Hypertension BPH Coronary artery disease history of CABG History of TIA Syncope Malignant noncompliance Vertigo History of congestive heart failure Atrial fibrillation Colon resection Hypercholesterolemia Chest pain GERD and heartburn Kidney stones Prostate issues with BPH Depression and anxiety Malignant medical noncompliance Past Surgical History History of CABG 4 and stents 15 Colon resection Lithotripsy 5 Right shoulder surgery right hip surgery Bilateral knee arthroscopic Left great toe amputation Reported Medications Reported Meds & Active Scripts Active Hydrocodone-Acetaminophen 5-325 mg Tab 1 Tab PO Q6H PRN Saad Bettencourtostar Pen Inj (Insulin Glargine) 300 Unit/Ml Pen 30 Units SQ BID 30 Days Novolog Inj (Insulin Aspart) 1,000 Unit/10 Ml Vial 5 Units SQ TIDAC Meclizine 25 (Meclizine HCl) 25 Mg Tab 25 Mg PO Q8HR Ropinirole 0.25 Mg Tab 0.25 Mg PO TID Escitalopram (Escitalopram Oxalate) 20 Mg Tab 20 Mg PO DAILY Finasteride 5 Mg Tab 5 Mg PO DAILY Do not crush. Clopidogrel (Clopidogrel Bisulfate) 75 Mg Tab 75 Mg PO DAILY Metformin (Metformin HCl) 1,000 Mg Tab 1,000 Mg PO BIDPC Alfuzosin ER 24 HR 10 Mg Tab 10 Mg PO DAILY Furosemide 20 Mg Tab 20 Mg PO DAILY Pioglitazone (Pioglitazone HCl) 45 Mg Tab 45 Mg PO DAILY Metolazone 5 Mg Tab 5 Mg PO DAILY Gabapentin 100 Mg Cap 100 Mg PO TID Pantoprazole (Pantoprazole Sodium) 40 Mg Tab 40 Mg PO BID Reported Ibuprofen 200 Mg Cap 200 Mg PO Q6H PRN Allergies: Coded Allergies: penicillin G (Unverified Allergy, Mild, RASH, 10/25/17) milk (Unverified Adverse Reaction, Unknown, UPSET STOMACH, 10/25/17) Active Ordered Medications Current Medications Sodium Chloride 500 ml @ 500 mls/hr ONCE ONCE IV Last administered on at 11:57; Start 11/06/17 at 11:45; Stop 11/06/17 at 12:44; Status DC Metoclopramide HCl (Reglan Inj) 10 mg ONCE ONCE IV PUSH Last administered on at 11:58; Start 11/06/17 at 11:45; Stop 11/06/17 at 11:46; Status DC Pantoprazole Sodium (Protonix Inj) 40 mg ONCE ONCE IV PUSH Last administered on 11/06/17at 11:58; Start 11/06/17 at 11:45; Stop 11/06/17 at 11:46; Status DC Insulin Detemir (Levemir Inj) 30 units ONCE STAT SQ Last administered on at 12:01; Start 11/06/17 at 11:50; Stop 11/06/17 at 11:52; Status DC Insulin Aspart (NovoLOG INJ) 8 units ONCE ONCE SQ Last administered on at 12:01; Start 11/06/17 at 12:00; Stop 11/06/17 at 12:01; Status DC Sodium Chloride 1,000 ml @ 999 mls/hr BOLUS ONCE IV Last administered on 11/06at 13:13; Start 11/06/17 at 13:00; Stop 11/06/17 at 14:00; Status DC Sodium Chloride 1,000 ml @ 250 mls/hr Q4H IV ; Start 11/06/17 at 14:52; Status UNV Dextrose/Sodium Chloride 1,000 ml @ 200 mls/hr Q5H IV ; Start 11/06/17 at 14:52 ; Status UNV Insulin Human Regular (NovoLIN R INJ) 7 units BOLUS ONCE IV PUSH ; Start at 15:00; Stop 11/06/17 at 15:01; Status UNV Insulin Human Regular 100 units/ Sodium Chloride 100 ml @ 7.27 mls/hr TITRATE PRN IV Blood Glucose Control; Start 11/06/17 at 15:00; Status UNV Potassium Chloride 100 ml @ 100 mls/hr Q1H PRN IV SEE LABEL COMMENTS; Start at 15:00; Status UNV Potassium Chloride 100 ml @ 50 mls/hr Q2H PRN IV SEE LABEL COMMENTS; Start at 15:00; Status UNV Potassium Chloride 100 ml @ 100 mls/hr Q1H PRN IV SEE LABEL COMMENTS; Start at 15:00; Status UNV Potassium Chloride 100 ml @ 100 mls/hr Q1H PRN IV SEE LABEL COMMENTS; Start at 15:00; Status UNV Potassium Chloride 100 ml @ 50 mls/hr Q2H PRN IV SEE LABEL COMMENTS; Start at 15:00; Status UNV Potassium Chloride 100 ml @ 50 mls/hr Q2H PRN IV SEE LABEL COMMENTS; Start at 15:00; Status UNV Potassium Chloride 100 ml @ 50 mls/hr Q2H PRN IV SEE LABEL COMMENTS; Start at 15:00; Status UNV Potassium Chloride 100 ml @ 50 mls/hr Q2H PRN IV SEE LABEL COMMENTS; Start at 15:00; Status UNV Sodium Bicarbonate (Sodium Bicarbonate 8.4% Inj) 100 meq UNSCH PRN IV PUSH SEE LABEL COMMENTS; Start 11/06/17 at 15:00; Status UNV Sodium Bicarbonate (Sodium Bicarbonate 8.4% Inj) 50 meq UNSCH PRN IV PUSH SEE LABEL COMMENTS; Start 11/06/17 at 15:00; Status UNV Sodium Phosphate 15 mmol/Sodium Chloride 105 ml @ 25 mls/hr UNSCH PRN IV SEE LABEL COMMENTS; Start 11/06/17 at 15:00; Status UNV Miscellaneous Information 1 [id number] XX ; Start 11/06/17 at 15:00; Status UNV Chlorhexidine Gluconate (Chlorhexidine 2% Cloth) 3 pack Taper DAILY@04 TOP ; Start 11/07/17 at 04:00; Stop 11/03/18 at 03:59; Status UNV Chlorhexidine Gluconate (Chlorhexidine 2% Cloth) 3 pack UNSCH PRN TOP HYGIENIC CARE; Start 11/06/17 at 15:00; Status UNV Clopidogrel Bisulfate (Plavix) 75 mg DAILY PO ; Start 11/06/17 at 15:15; Status UNV Escitalopram Oxalate (Lexapro) 20 mg DAILY PO ; Start 11/06/17 at 15:15; Status UNV Finasteride (Proscar) 5 mg DAILY PO ; Start 11/06/17 at 15:15; Status UNV Gabapentin (Neurontin) 100 mg TID PO ; Start 11/06/17 at 18:00; Status UNV Meclizine HCl (Antivert) 25 mg Q8HR PO ; Start 11/06/17 at 15:15; Status UNV Pantoprazole Sodium (Protonix) 40 mg BID PO ; Start 11/06/17 at 21:00; Status UNV Ropinirole HCl (Requip) 0.25 mg TID PO ; Start 11/06/17 at 18:00; Status UNV Non-Formulary Medication 10 mg DAILY PO ; Start 11/06/17 at 15:15; Status UNV Family History Hypertension Possible diabetes Social History Quit smoking and quit tobacco about 25 years ago Physical Exam Vital Signs Vital Signs Date Time Temp Pulse Resp B/P (MAP) Pulse Ox O2 Delivery O2 Flow Rate FiO2 11/06/17 15:10 106 18 129/79 (96) 97 Room Air 11/06/17 13:14 112 18 159/74 (102) 98 Room Air 11/06/17 11:08 100 20 180/84 (116) 100 Room Air 11/06/17 11:08 20 11/06/17 11:05 100 20 180/84 (116) 100 Physical Exam GENERAL: This is a well-nourished, well-developed patient, in no apparent distress. SKIN: No rashes, ecchymoses or lesions. Cool and dry. HEAD: Atraumatic. Normocephalic. No temporal or scalp tenderness. EYES: Pupils equal round and reactive. Extraocular motions intact. No scleral icterus. No injection or drainage. ENT: Nose without bleeding, purulent drainage or septal hematoma. Throat without erythema, tonsillar hypertrophy or exudate. Uvula midline. Airway patent. NECK: Trachea midline. No JVD or lymphadenopathy. Supple, nontender, no meningeal signs. CARDIOVASCULAR: Regular rate and rhythm without murmurs, gallops, or rubs. RESPIRATORY: Clear to auscultation. Breath sounds equal bilaterally. No wheezes , rales, or rhonchi. GASTROINTESTINAL: Abdomen soft, non-tender, nondistended. No hepato-splenomegaly , or palpable masses. No guarding. MUSCULOSKELETAL: Extremities without clubbing, cyanosis, or edema. No joint tenderness, effusion, or edema noted. No calf tenderness. Negative Homans sign bilaterally. NEUROLOGICAL: Awake and alert. Cranial nerves II through XII intact. Motor and sensory grossly within normal limits. Five out of 5 muscle strength in all muscle groups. Normal speech. Laboratory Laboratory Tests Test 11/06/17 11:49 11/06/17 13:16 11/06/17 14:50 White Blood Count 14.6 Red Blood Count 5.01 Hemoglobin 15.1 Hematocrit 46.1 Mean Corpuscular Volume 92.1 Mean Corpuscular Hemoglobin 30.2 Mean Corpuscular Hemoglobin Concent 32.8 Red Cell Distribution Width 14.4 Platelet Count 271 Mean Platelet Volume 9.7 Neutrophils (%) (Auto) 89.0 Lymphocytes (%) (Auto) 8.3 Monocytes (%) (Auto) 2.2 Eosinophils (%) (Auto) 0.1 Basophils (%) (Auto) 0.4 Neutrophils # (Auto) 13.0 Lymphocytes # (Auto) 1.2 Monocytes # (Auto) 0.3 Eosinophils # (Auto) 0.0 Basophils # (Auto) 0.1 CBC Comment DIFF FINAL Differential Comment Prothrombin Time 10.0 Prothromb Time International Ratio 1.0 Activated Partial Thromboplast Time 21.1 Blood Urea Nitrogen 30 Creatinine 1.13 Random Glucose 473 Total Protein 7.3 Albumin 3.8 Calcium Level 9.4 Magnesium Level 2.1 Alkaline Phosphatase 64 Aspartate Amino Transf (AST/SGOT) 12 Alanine Aminotransferase (ALT/SGPT) 20 Total Bilirubin 0.5 Sodium Level 121 Potassium Level 3.9 Chloride Level 85 Carbon Dioxide Level 14.1 Anion Gap 22 Estimat Glomerular Filtration Rate 65 Total Creatine Kinase 47 Troponin I LESS THAN 0.02 Lipase 84 Urine Color LIGHT-YELLOW Urine Turbidity CLEAR Urine pH 5.0 Urine Specific [place] 1.029 Urine Protein NEG Urine Glucose (UA) 1000 Urine Ketones 150 Urine Occult Blood NEG Urine Nitrite NEG Urine Bilirubin NEG Urine Urobilinogen LESS THAN 2.0 Urine Leukocyte Esterase NEG Urine RBC LESS THAN 1 Urine WBC 1 Microscopic Urinalysis Comment CULT NOT INDICATED Blood Gas Puncture Site LT RADIAL Blood Gas Patient Temperature 98.6 Blood Gas HCO3 9 Blood Gas Base Excess -16.5 Blood Gas Oxygen Saturation 96 Arterial Blood pH 7.31 Arterial Blood Partial Pressure CO2 18 Arterial Blood Partial Pressure O2 117 Arterial Blood Oxygen Content 19.4 Arterial Blood Carboxyhemoglobin 0.1 Arterial Blood Methemoglobin 0.6 Blood Gas Hemoglobin 14.3 Blood Gas Inspired Oxygen 21 Result Diagram: 11/06/17 1149 11/06/17 1149 Caprini VTE Risk Assessment Caprini VTE Risk Assessment: Mod/High Risk (score >= 2) Caprini Risk Assessment Model Point Value = 1 Point Value = 2 Point Value = 3 Point Value = 5 Age 41-60 Minor surgery BMI > 25 kg/m2 Swollen legs Varicose veins or History of unexplained or recurrent spontaneous Oral contraceptives or hormone replacement Sepsis (< 1 month) Serious lung disease, including pneumonia (< 1 month) Abnormal pulmonary function Acute myocardial infarction Congestive heart failure (< 1 month) History of inflammatory bowel disease Medical patient at bed rest Age 61-74 Arthroscopic surgery Major open surgery (> 45 min) Laparoscopic surgery (> 45 min) Malignancy Confined to bed (> 72 hours) Immobilizing plaster cast Central venous access Age >= 75 History of VTE Family history of VTE Factor V Leiden Prothrombin [id number] Lupus anticoagulant Anticardiolipin antibodies Elevated serum homocysteine Heparin-induced thrombocytopenia Other congenital or acquired thrombophilia Stroke (< 1 month) Elective arthroplasty Hip, pelvis, or leg fracture Acute spinal cord injury (< 1 month) Prophylaxis Regimen Total Risk Factor Score Risk Level Prophylaxis Regimen 0-1 Low Early ambulation 2 Moderate Order ONE of the following: *Sequential Compression Device (SCD) *Heparin 5000 units SQ BID 3-4 Higher Order ONE of the following medications: *Heparin 5000 units SQ TID *Enoxaparin/Lovenox 40 mg SQ daily (WT < 150 kg, CrCl > 30 mL/min) *Enoxaparin/Lovenox 30 mg SQ daily (WT < 150 kg, CrCl > 10-29 mL/min) *Enoxaparin/Lovenox 30 mg SQ BID (WT < 150 kg, CrCl > 30 mL/min) AND/OR *Sequential Compression Device (SCD) 5 or more Highest Order ONE of the following medications: *Heparin 5000 units SQ TID (Preferred with Epidurals) *Enoxaparin/Lovenox 40 mg SQ daily (WT < 150 kg, CrCl > 30 mL/min) *Enoxaparin/Lovenox 30 mg SQ daily (WT < 150 kg, CrCl > 10-29 mL/min) *Enoxaparin/Lovenox 30 mg SQ BID (WT < 150 kg, CrCl > 30 mL/min) AND *Sequential Compression Device (SCD) Assessment and Plan Problem List: (1) RADHA (acute kidney injury) ICD Code: N17.9 - Acute kidney failure, unspecified (2) Vertigo ICD Code: R42 - Dizziness and giddiness (3) DKA (diabetic ketoacidoses) ICD Code: E13.10 - Other specified diabetes mellitus with ketoacidosis without coma (4) Diabetes ICD Code: E11.9 - Type 2 diabetes mellitus without complications (5) CAD (coronary artery disease) ICD Code: I25.10 - Atherosclerotic heart disease of [place] coronary artery without angina pectoris Status: Chronic (6) Generalized weakness ICD Code: R53.1 - Weakness (7) Diabetes mellitus with hyperglycemia, with long-term current use of insulin ICD Code: E11.65 - Type 2 diabetes mellitus with hyperglycemia; Z79.4 - terminal operations manager (current) use of insulin Status: Acute (8) Noncompliance with medication regimen ICD Code: Z91.14 - Patient's other noncompliance with medication regimen; Z79.4 - residential (current) use of insulin Status: Acute (9) Hyponatremia ICD Code: E87.1 - Hypo-osmolality and hyponatremia Status: Acute (10) Dehydration with hyponatremia ICD Code: E87.1 - Hypo-osmolality and hyponatremia Assessment and Plan Diabetic ketoacidosis due to noncompliance with medications and not taking insulin and not following diabetic diet will place on insulin drip. Continue on fluids. We will place on potassium and magnesium and phosphorus protocols Hypertension resume home medications Coronary artery disease continue on Plavix Hyponatremia continue on fluids BPH resume home medications Restless leg continue on his ropinirole Depression and anxiety continue on his Lexapro peripheral neuropathy continue on gabapentin Malignant medical noncompliance recommend that patient actually take his medication Coronary artery disease with history of CABG 4 and up to 15 cardiac stents Dehydration and hyponatremia due to DKA Acute kidney injury will continue on rehydration monitor in the ICU on insulin drip Ask case management for help regarding discharge Code Status Full code Discussed Condition With Emergency room physician and patient and RN and respiratory therapist Physician Certification 2 Midnight Certification Type: Admission for Inpatient Services Order for Inpatient Services The services are ordered in accordance with Medicare regulations or non- Medicare payer requirements, as applicable. In the case of services not specified as inpatient-only, they are appropriately provided as inpatient services in accordance with the 2-midnight benchmark. Estimated LOS (days): 3 days is the estimated time the patient will need to remain in the hospital, assuming treatment plan goals are met and no additional complications. Post-Hospital Plan: Not yet determined Problem Qualifiers (1) Diabetes mellitus with hyperglycemia, with long-term current use of insulin : Qualified Codes: E11.65 - Type 2 diabetes mellitus with hyperglycemia; Z79.4 - residential (current) use of insulin (2) Diabetes: Shaun Malin DO Nov 06, 2017 15:27
--- NOTE | 2017-11-06 15:32 | PD ---
Data Data Last Documented VS Vital Signs Date Time Temp Pulse Resp B/P (MAP) Pulse Ox O2 Delivery O2 Flow Rate FiO2 11/06/17 13:14 112 18 159/74 (102) 98 Room Air Orders Orders Electrocardiogram (11/06/17 ) Complete Blood Count With Diff (11/06/17 11:32) Comprehensive Metabolic Panel (11/06/17 11:32) Lipase (11/06/17 11:32) Prothrombin Time / Inr (Pt) (11/06/17 11:32) Act Partial Throm Time (Ptt) (11/06/17 11:32) Urinalysis - C+S If Indicated (11/06/17 11:32) Iv Access Insert/Monitor (11/06/17 11:32) Ecg Monitoring (11/06/17 11:32) Oximetry (11/06/17 11:32) Ckmb (Isoenzyme) Profile (11/06/17 11:32) Magnesium (Mg) (11/06/17 11:32) Troponin I (11/06/17 11:32) Sodium Chlorid 0.9% 500 Ml Inj (Ns 500 M (11/06/17 11:45) Metoclopramide Inj (Reglan Inj) (11/06/17 11:45) Pantoprazole Inj (Protonix Inj) (11/06/17 11:45) Insulin Detemir Inj (Levemir Inj) (11/06/17 11:50) Insulin Aspart Inj (Novolog Inj) (11/06/17 12:00) Sodium Chlor 0.9% 1000 Ml Inj (Ns 1000 M (11/06/17 13:00) Arterial Blood Gas (Abg) (11/06/17 ) Beta Hydroxybutyrate (Acetone) (11/06/17 14:35) Admit Order (Ed Use Only) (11/06/17 14:35) Blood Glucose (11/06/17 14:35) Labs Laboratory Tests Test 11/06/17 11:49 11/06/17 13:16 White Blood Count 14.6 TH/MM3 Red Blood Count 5.01 MIL/MM3 Hemoglobin 15.1 GM/DL Hematocrit 46.1 % Mean Corpuscular Volume 92.1 FL Mean Corpuscular Hemoglobin 30.2 PG Mean Corpuscular Hemoglobin Concent 32.8 % Red Cell Distribution Width 14.4 % Platelet Count 271 TH/MM3 Mean Platelet Volume 9.7 FL Neutrophils (%) (Auto) 89.0 % Lymphocytes (%) (Auto) 8.3 % Monocytes (%) (Auto) 2.2 % Eosinophils (%) (Auto) 0.1 % Basophils (%) (Auto) 0.4 % Neutrophils # (Auto) 13.0 TH/MM3 Lymphocytes # (Auto) 1.2 TH/MM3 Monocytes # (Auto) 0.3 TH/MM3 Eosinophils # (Auto) 0.0 TH/MM3 Basophils # (Auto) 0.1 TH/MM3 CBC Comment DIFF FINAL Differential Comment Prothrombin Time 10.0 SEC Prothromb Time International Ratio 1.0 RATIO Activated Partial Thromboplast Time 21.1 SEC Blood Urea Nitrogen 30 MG/DL Creatinine 1.13 MG/DL Random Glucose 473 MG/DL Total Protein 7.3 GM/DL Albumin 3.8 GM/DL Calcium Level 9.4 MG/DL Magnesium Level 2.1 MG/DL Alkaline Phosphatase 64 U/L Aspartate Amino Transf (AST/SGOT) 12 U/L Alanine Aminotransferase (ALT/SGPT) 20 U/L Total Bilirubin 0.5 MG/DL Sodium Level 121 MEQ/L Potassium Level 3.9 MEQ/L Chloride Level 85 MEQ/L Carbon Dioxide Level 14.1 MEQ/L Anion Gap 22 MEQ/L Estimat Glomerular Filtration Rate 65 ML/MIN Total Creatine Kinase 47 U/L Troponin I LESS THAN 0.02 NG/ML Lipase 84 U/L Urine Color LIGHT-YELLOW Urine Turbidity CLEAR Urine pH 5.0 Urine Specific [place] 1.029 Urine Protein NEG mg/dL Urine Glucose (UA) 1000 mg/dL Urine Ketones 150 mg/dL Urine Occult Blood NEG Urine Nitrite NEG Urine Bilirubin NEG Urine Urobilinogen LESS THAN 2.0 MG/DL Urine Leukocyte Esterase NEG Urine RBC LESS THAN 1 /hpf Urine WBC 1 /hpf Microscopic Urinalysis Comment CULT NOT INDICATED MDM Supervised Visit with PATT: Yes Narrative Course The history, exam, and medical decision-making in the associated mid-level provider note were completed with my assistance. I reviewed and agree with the findings presented. I attest that I had a [id number] encounter with the patient on the same day, and personally performed and documented my assessment and findings in the medical record. *My assessment and Findings: 66-year-old man, recent admission for hyperglycemia and hyponatremia. Here at the same with some acidosis suggestive of early mild DKA. Looks well. A little bit dehydrated. Initially low suspicion for DKA, was given his subcu insulin. Recommend admission for further treatment stabilization. We spoke with case management to try to check on home health. It appears that they fax her home health but no follow-up was ever conducted, no home health was never actually arranged. Diagnosis Primary Impression: Noncompliance with medication regimen Additional Impressions: Hyponatremia Diabetes mellitus with hyperglycemia, with long-term current use of insulin Qualified Codes: E11.65 - Type 2 diabetes mellitus with hyperglycemia; Z79.4 - exterminator helper termite (current) use of insulin Condition: Stable Ran Ly MD Nov 06, 2017 15:32
[2017-11-06 16:08] LABS: MAGNESIUM 2.2 MG/DL (1.5-2.5); PHOSPHORUS 4.6 MG/DL (2.5-4.9)
[2017-11-06] MEDS: POTASSIUM CHLOR 20 MEQ PREMIX 100 ML IV PRN ×2 (16:30→18:19)
[2017-11-06] MEDS: CLOPIDOGREL 75 MG TAB PO SCH (16:59)
[2017-11-06] MEDS: FINASTERIDE 5 MG TAB PO SCH (17:00)
[2017-11-06] MEDS: TAMSULOSIN HCL 0.4 MG CAP PO SCH (17:00)
[2017-11-06] MEDS: ESCITALOPRAM OXALATE 20 MG TAB PO SCH (17:00)
[2017-11-06] MEDS: ENOXAPARIN SODIUM 30 MG/0.3 ML SYRINGE SQ SCH (17:00)
[2017-11-06] MEDS: MECLIZINE HCL 25 MG TAB PO SCH ×2 (17:00→22:00)
[2017-11-06] MEDS: GABAPENTIN 100 MG CAP PO SCH (18:55)
[2017-11-06] MEDS: ONDANSETRON HCL 4 MG/2 ML VIAL IVP PRN (20:08)
[2017-11-06 21:00] LABS: BICARBONATE 14.1 MEQ/L (21.0-32.0); CALCIUM 6.9 MG/DL (8.5-10.1); CREATININE 0.97 MG/DL (0.60-1.30); MAGNESIUM 1.5 MG/DL (1.5-2.5); PHOSPHORUS 1.5 MG/DL (2.5-4.9)
[2017-11-06 21:20] LABS: CALCIUM-PROTEIN CORRECTED 7.8 MG/DL (8.5-10.1); TOTAL PROTEIN 5.4 GM/DL (6.4-8.2)
[2017-11-06 22:33] LABS: TROPONIN I 0.02 NG/ML (0.02-0.05)
[2017-11-06] MEDS ORDERED: POTASSIUM PHOSPHATE MONOBASIC 500 MG TAB PO ONE (23:30)
[2017-11-06] MEDS ORDERED: MAGNESIUM OXIDE 400 MG TAB PO ONE (23:30)
[2017-11-06] MEDS ORDERED: INSULIN DETEMIR 100 UNITS/ML VIAL SQ ONE (23:30)
[2017-11-07] VITALS (13 sets, daily range): BP systolic 95–164; BP diastolic 53–98; PULSE 80–119; RESP 11–31; TEMP 98.6–99.4; O2SAT 95–100
[2017-11-07] MEDS: CHLORHEXIDINE GLUCONATE 2 % 1 PACK (2 CLOTHS) TOP SCH (00:16)
[2017-11-07 03:24] LABS: AUTOMATED NEUTROPHIL # 12.1 TH/MM3 (1.8-7.7); BASOPHIL # 0.1 TH/MM3 (0-0.2); BASOPHIL % 0.5 % (0.0-2.0); EOSINOPHIL % 0.1 % (0.0-4.0); HEMATOCRIT 37.8 % (39.0-51.0); HEMOGLOBIN 13.4 GM/DL (13.0-17.0); LYMPH % 11.8 % (9.0-44.0); LYMPHOCYTE # 1.8 TH/MM3 (1.0-4.8); MEAN CELL VOLUME 86.6 FL (80.0-100.0); MEAN CORPUSCULAR HEMOGLOBIN 30.7 PG (27.0-34.0); MEAN CORPUSCULAR HGB CONC 35.5 % (32.0-36.0); MONO % 7.5 % (0.0-8.0); MONOCYTE # 1.1 TH/MM3 (0-0.9); NEUT % 80.1 % (16.0-70.0); PLATELET COUNT 237 TH/MM3 (150-450); RED BLOOD COUNT 4.37 MIL/MM3 (4.50-5.90); RED CELL DISTRIBUTION WIDTH 14.2 % (11.6-17.2); WHITE BLOOD COUNT 15.1 TH/MM3 (4.0-11.0)
[2017-11-07 03:56] LABS: ALBUMIN 3.1 GM/DL (3.4-5.0); ALKALINE PHOSPHATASE 48 U/L (45-117); ALT (GPT) 14 U/L (12-78); AST (GOT) 10 U/L (15-37); BICARBONATE 19.6 MEQ/L (21.0-32.0); BLOOD UREA NITROGEN 28 MG/DL (7-18); CALCIUM 7.6 MG/DL (8.5-10.1); CHLORIDE 115 MEQ/L (98-107); CREATININE 0.87 MG/DL (0.60-1.30); FREE T4 0.99 NG/DL (0.76-1.46); GLOMERULAR FILTRATION RATE 88 ML/MIN (>89); GLUCOSE,RANDOM 117 MG/DL (74-106); MAGNESIUM 1.9 MG/DL (1.5-2.5); PHOSPHORUS 1.6 MG/DL (2.5-4.9); SODIUM (NA) 143 MEQ/L (136-145); TOTAL BILIRUBIN ADULT 0.3 MG/DL (0.2-1.0)
--- NOTE | 2017-11-07 08:36 | HHI.PR ---
Subjective Remarks Patient is a 66y male with a history of DM, CAD with CABGx4, GERD, medication noncompliance who presents to the ED via [facility] for nausea, vomiting and abdominal pain for 3 days. Says his symptoms started 3 days ago because he ' could not find his meds' and therefore has not taken any medication since then. Patient is a diabetic and is supposed to be insulin. He has not been taking any of his insulin. Presents with persistent nausea and vomiting over the past 3 days and is found to be in DKA. He denies fevers but has felt chills. Last BM this morning which was normal for him. [facility] administered zofran 4mg IV with minimal improvement in symptoms. Says he has 'chest pain' located from his midsternal region to his midabdomen. Described as constant, non radiating and no palliative or provocative factors. Patient has had lots of vomiting. Has had lots of issues with acid indigestion. Has not been taking any of his medications for at least the past 3 days if not longer Patient has blatant medical noncompliance 3-14 BLOOD SUGARS IMPROVED TAKEN OFF DRIP BY MY [facility] LAST NIGHT DW RN AND PT RESTART LEVEMIR 15 UNITS SUBQ BID WITH MEDIUM DOSE SLIDING SCALE CASE MANAGEMENT FOR DC PLANNING TO SNF IF ABLE TO HAPPEN PT AND OT NOTES RECOMMEND SNF AM LABS Objective Vitals Vital Signs Date Time Temp Pulse Resp B/P (MAP) Pulse Ox O2 Delivery O2 Flow Rate FiO2 11/07/17 06:00 86 11/07/17 04:00 80 11/07/17 04:00 98.8 80 11 105/73 (84) 98 11/07/17 02:00 84 11/07/17 00:00 87 11/07/17 00:00 99.0 87 11 138/64 (88) 95 11/06/17 22:00 96 11/06/17 20:39 99.1 104 20 124/59 (80) 99 11/06/17 20:18 104 15 100/55 (70) 98 11/06/17 20:06 11/06/17 19:30 98 11/06/17 17:30 108 16 131/82 (98) 98 Room Air 11/06/17 15:10 106 18 129/79 (96) 97 Room Air 11/06/17 13:14 112 18 159/74 (102) 98 Room Air 11/06/17 11:08 100 20 180/84 (116) 100 Room Air 11/06/17 11:08 20 11/06/17 11:05 100 20 180/84 (116) 100 I/O 11/06/17 11/06/17 11/06/17 11/07/17 11/07/17 11/07/17 07:00 15:00 23:00 07:00 15:00 23:00 Intake Total 1500 ml 360 ml Output Total 400 ml Balance 1500 ml -40 ml Intake Oral 360 ml IV Total 1500 ml Output Urine Total 400 ml Result Diagram: 11/07/17 0305 11/07/17 0305 Other Results Laboratory Tests Test 11/06/17 11:49 11/06/17 13:16 11/06/17 14:50 11/06/17 20:20 White Blood Count 14.6 TH/MM3 Red Blood Count 5.01 MIL/MM3 Hemoglobin 15.1 GM/DL Hematocrit 46.1 % Mean Corpuscular Volume 92.1 FL Mean Corpuscular Hemoglobin 30.2 PG Mean Corpuscular Hemoglobin Concent 32.8 % Red Cell Distribution Width 14.4 % Platelet Count 271 TH/MM3 Mean Platelet Volume 9.7 FL Neutrophils (%) (Auto) 89.0 % Lymphocytes (%) (Auto) 8.3 % Monocytes (%) (Auto) 2.2 % Eosinophils (%) (Auto) 0.1 % Basophils (%) (Auto) 0.4 % Neutrophils # (Auto) 13.0 TH/MM3 Lymphocytes # (Auto) 1.2 TH/MM3 Monocytes # (Auto) 0.3 TH/MM3 Eosinophils # (Auto) 0.0 TH/MM3 Basophils # (Auto) 0.1 TH/MM3 CBC Comment DIFF FINAL Differential Comment Prothrombin Time 10.0 SEC Prothromb Time International Ratio 1.0 RATIO Activated Partial Thromboplast Time 21.1 SEC Blood Urea Nitrogen 30 MG/DL 31 MG/DL Creatinine 1.13 MG/DL 0.97 MG/DL Random Glucose 473 MG/DL 180 MG/DL Total Protein 7.3 GM/DL 5.4 GM/DL Albumin 3.8 GM/DL Calcium Level 9.4 MG/DL 6.9 MG/DL Magnesium Level 2.1 MG/DL 1.5 MG/DL Alkaline Phosphatase 64 U/L Aspartate Amino Transf (AST/SGOT) 12 U/L Alanine Aminotransferase (ALT/SGPT) 20 U/L Total Bilirubin 0.5 MG/DL Sodium Level 121 MEQ/L 143 MEQ/L Potassium Level 3.9 MEQ/L 4.5 MEQ/L Chloride Level 85 MEQ/L 115 MEQ/L Carbon Dioxide Level 14.1 MEQ/L 14.1 MEQ/L Anion Gap 22 MEQ/L 14 MEQ/L Estimat Glomerular Filtration Rate 65 ML/MIN 78 ML/MIN Phosphorus Level 4.6 MG/DL 1.5 MG/DL Total Creatine Kinase 47 U/L 63 U/L Troponin I LESS THAN 0.02 NG/ML 0.02 NG/ML Lipase 84 U/L B-Hydroxybutyrate 13.68 MMOL/L Urine Color LIGHT-YELLOW Urine Turbidity CLEAR Urine pH 5.0 Urine Specific [place] 1.029 Urine Protein NEG mg/dL Urine Glucose (UA) 1000 mg/dL Urine Ketones 150 mg/dL Urine Occult Blood NEG Urine Nitrite NEG Urine Bilirubin NEG Urine Urobilinogen LESS THAN 2.0 MG/DL Urine Leukocyte Esterase NEG Urine RBC LESS THAN 1 /hpf Urine WBC 1 /hpf Microscopic Urinalysis Comment CULT NOT INDICATED Blood Gas Puncture Site LT RADIAL Blood Gas Patient Temperature 98.6 Blood Gas HCO3 9 mmol/L Blood Gas Base Excess -16.5 mmol/L Blood Gas Oxygen Saturation 96 % Arterial Blood pH 7.31 Arterial Blood Partial Pressure CO2 18 mmHg Arterial Blood Partial Pressure O2 117 mmHG Arterial Blood Oxygen Content 19.4 Vol % Arterial Blood Carboxyhemoglobin 0.1 % Arterial Blood Methemoglobin 0.6 % Blood Gas Hemoglobin 14.3 G/DL Blood Gas Inspired Oxygen 21 % Protein Corrected Calcium 7.8 MG/DL Test 11/06/17 20:45 11/07/17 03:05 Nasal Screen MRSA (PCR) MRSA NOT DETECTED White Blood Count 15.1 TH/MM3 Red Blood Count 4.37 MIL/MM3 Hemoglobin 13.4 GM/DL Hematocrit 37.8 % Mean Corpuscular Volume 86.6 FL Mean Corpuscular Hemoglobin 30.7 PG Mean Corpuscular Hemoglobin Concent 35.5 % Red Cell Distribution Width 14.2 % Platelet Count 237 TH/MM3 Mean Platelet Volume 9.0 FL Neutrophils (%) (Auto) 80.1 % Lymphocytes (%) (Auto) 11.8 % Monocytes (%) (Auto) 7.5 % Eosinophils (%) (Auto) 0.1 % Basophils (%) (Auto) 0.5 % Neutrophils # (Auto) 12.1 TH/MM3 Lymphocytes # (Auto) 1.8 TH/MM3 Monocytes # (Auto) 1.1 TH/MM3 Eosinophils # (Auto) 0.0 TH/MM3 Basophils # (Auto) 0.1 TH/MM3 CBC Comment DIFF FINAL Differential Comment Hematology Comments Blood Urea Nitrogen 28 MG/DL Creatinine 0.87 MG/DL Random Glucose 117 MG/DL Total Protein 6.0 GM/DL Albumin 3.1 GM/DL Calcium Level 7.6 MG/DL Phosphorus Level 1.6 MG/DL Magnesium Level 1.9 MG/DL Alkaline Phosphatase 48 U/L Aspartate Amino Transf (AST/SGOT) 10 U/L Alanine Aminotransferase (ALT/SGPT) 14 U/L Total Bilirubin 0.3 MG/DL Sodium Level 143 MEQ/L Potassium Level 3.6 MEQ/L Chloride Level 115 MEQ/L Carbon Dioxide Level 19.6 MEQ/L Anion Gap 8 MEQ/L Estimat Glomerular Filtration Rate 88 ML/MIN Free Thyroxine 0.99 NG/DL Thyroid Stimulating Hormone 3rd Gen 0.795 uIU/ML B-Hydroxybutyrate 0.50 MMOL/L Objective Remarks GENERAL: AWAKE ALERT AND ORIENTED X3 IN NAD SKIN: Warm and dry. HEAD: Atraumatic. Normocephalic. EYES: Pupils equal and round. No scleral icterus. No injection or drainage. EOMI , ENT: No nasal bleeding or discharge. Mucous membranes pink and moist. ORAL MUCOSA MOIST NECK: Trachea midline. No JVD. SUPPLE CARDIOVASCULAR: Regular rate and rhythm. S1, S2 NO S3 OR S4 RESPIRATORY: No accessory muscle use. Clear to auscultation. Breath sounds equal bilaterally. GASTROINTESTINAL: Abdomen soft, non-tender, nondistended. Hepatic and splenic margins not palpable. MUSCULOSKELETAL: Extremities without clubbing, cyanosis, or edema. No obvious deformities. NEUROLOGICAL: Awake and alert. No obvious cranial nerve deficits. Motor grossly within normal limits. 4 out of 5 muscle strength in the arms and legs. Normal speech. PSYCHIATRIC: Appropriate mood and affect; insight and judgment normal. Procedures NONE Medications and IVs Current Medications Sodium Chloride 500 ml @ 500 mls/hr ONCE ONCE IV Last administered on at 11:57; Start 11/06/17 at 11:45; Stop 11/06/17 at 12:44; Status DC Metoclopramide HCl (Reglan Inj) 10 mg ONCE ONCE IV PUSH Last administered on at 11:58; Start 11/06/17 at 11:45; Stop 11/06/17 at 11:46; Status DC Pantoprazole Sodium (Protonix Inj) 40 mg ONCE ONCE IV PUSH Last administered on 11/06/17at 11:58; Start 11/06/17 at 11:45; Stop 11/06/17 at 11:46; Status DC Insulin Detemir (Levemir Inj) 30 units ONCE STAT SQ Last administered on at 12:01; Start 11/06/17 at 11:50; Stop 11/06/17 at 11:52; Status DC Insulin Aspart (NovoLOG INJ) 8 units ONCE ONCE SQ Last administered on at 12:01; Start 11/06/17 at 12:00; Stop 11/06/17 at 12:01; Status DC Sodium Chloride 1,000 ml @ 999 mls/hr BOLUS ONCE IV Last administered on 11/06at 13:13; Start 11/06/17 at 13:00; Stop 11/06/17 at 14:00; Status DC Sodium Chloride 1,000 ml @ 250 mls/hr Q4H IV Last administered on 11/06/17at 16 :28; Start 11/06/17 at 14:52 Dextrose/Sodium Chloride 1,000 ml @ 200 mls/hr Q5H IV Last administered on at 18:56; Start 11/06/17 at 14:52 Insulin Human Regular (NovoLIN R INJ) 7 units BOLUS ONCE IV PUSH Last administered on 11/06/17at 16:31; Start 11/06/17 at 15:00; Stop 11/06/17 at 15:44 ; Status DC Insulin Human Regular 100 units/ Sodium Chloride 100 ml @ 7.27 mls/hr TITRATE PRN IV Blood Glucose Control Last administered on 11/06/17at 16:33; Start at 15:00; Stop 11/06/17 at 16:39; Status DC Potassium Chloride 100 ml @ 100 mls/hr Q1H PRN IV SEE LABEL COMMENTS; Start at 15:00 Potassium Chloride 100 ml @ 50 mls/hr Q2H PRN IV SEE LABEL COMMENTS; Start at 15:00 Potassium Chloride 100 ml @ 100 mls/hr Q1H PRN IV SEE LABEL COMMENTS; Start at 15:00 Potassium Chloride 100 ml @ 100 mls/hr Q1H PRN IV SEE LABEL COMMENTS; Start at 15:00 Potassium Chloride 100 ml @ 50 mls/hr Q2H PRN IV SEE LABEL COMMENTS; Start at 15:00 Potassium Chloride 100 ml @ 50 mls/hr Q2H PRN IV SEE LABEL COMMENTS; Start at 15:00 Potassium Chloride 100 ml @ 50 mls/hr Q2H PRN IV SEE LABEL COMMENTS Last administered on 11/06/17at 18:19; Start 11/06/17 at 15:00 Potassium Chloride 100 ml @ 50 mls/hr Q2H PRN IV SEE LABEL COMMENTS; Start at 15:00 Sodium Bicarbonate (Sodium Bicarbonate 8.4% Inj) 100 meq UNSCH PRN IV PUSH SEE LABEL COMMENTS; Start 11/06/17 at 15:00 Sodium Bicarbonate (Sodium Bicarbonate 8.4% Inj) 50 meq UNSCH PRN IV PUSH SEE LABEL COMMENTS; Start 11/06/17 at 15:00 Sodium Phosphate 15 mmol/Sodium Chloride 105 ml @ 25 mls/hr UNSCH PRN IV SEE LABEL COMMENTS; Start 11/06/17 at 15:00 Miscellaneous Information 1 [id number] ; Start 11/06/17 at 15:00 Chlorhexidine Gluconate (Chlorhexidine 2% Cloth) 3 pack Taper DAILY@04 TOP Last administered on 11/07/17at 00:16; Start 11/07/17 at 04:00; Stop 11/03/18 at 03:59 Chlorhexidine Gluconate (Chlorhexidine 2% Cloth) 3 pack UNSCH PRN TOP HYGIENIC CARE; Start 11/06/17 at 15:00 Clopidogrel Bisulfate (Plavix) 75 mg DAILY PO Last administered on 11/06/17at 16 :59; Start 11/06/17 at 15:15 Escitalopram Oxalate (Lexapro) 20 mg DAILY PO Last administered on 11/06/17at 17 :00; Start 11/06/17 at 15:15 Finasteride (Proscar) 5 mg DAILY PO Last administered on 11/06/17at 17:00; Start 11/06/17 at 15:15 Gabapentin (Neurontin) 100 mg TID PO Last administered on 11/06/17at 18:55; Start 11/06/17 at 18:00 Meclizine HCl (Antivert) 25 mg Q8HR PO Last administered on 11/06/17at 22:00; Start 11/06/17 at 15:15 Pantoprazole Sodium (Protonix) 40 mg BID PO ; Start 11/06/17 at 21:00 Ropinirole HCl (Requip) 0.25 mg TID PO Last administered on 11/06/17at 18:55; Start 11/06/17 at 18:00 Tamsulosin HCl (Flomax) 0.4 mg DAILY PO Last administered on 11/06/17at 17:00; Start 11/06/17 at 15:15 Sodium Chloride (NS Flush) 2 ml UNSCH PRN IV FLUSH FLUSH AFTER USING IV ACCESS ; Start 11/06/17 at 15:15 Sodium Chloride (NS Flush) 2 ml BID IV FLUSH ; Start 11/06/17 at 21:00 Acetaminophen (Tylenol) 650 mg Q4H PRN PO TEMP > 100.4; Start 11/06/17 at 15:15 Ondansetron HCl (Zofran Inj) 8 mg Q6H PRN IVP NAUSEA OR VOMITING Last administered on 11/06/17at 20:08; Start 11/06/17 at 15:15 Metoclopramide HCl (Reglan Inj) 5 mg Q6H PRN IV PUSH NAUSEA OR VOMITING; Start 11/06/17 at 15:15 Enoxaparin Sodium (Lovenox Inj) 30 mg Q24H SQ Last administered on 11/06/17at 17 :00; Start 11/06/17 at 16:00 Morphine Sulfate (Morphine Inj) 2 mg Q3H PRN IV PUSH Pain 3-5; if unable to take PO; Start 11/06/17 at 15:15 Morphine Sulfate (Morphine Inj) 4 mg Q3H PRN IV PUSH Pain 6-10;if unable to take PO; Start 11/06/17 at 15:15; Stop 11/06/17 at 15:46; Status DC Morphine Sulfate (Morphine Inj) 4 mg Q1H PRN IV PUSH PAIN SCALE 7-10 ( INTRACTABLE); Start 11/06/17 at 15:15 Morphine Sulfate (Morphine Inj) 4 mg Q3H PRN IV PUSH BREAKTHROUGH PAIN; Start 11/06/17 at 15:15 Naloxone HCl (Narcan Inj) 0.4 mg UNSCH PRN IV PUSH SEE LABEL COMMENTS; Start at 15:15 Senna/Docusate Sodium (Sonia-Colace) 1 tab BID PO ; Start 11/06/17 at 21:00 Magnesium Hydroxide (Milk Of Magnesia Liq) 30 ml Q12H PRN PO Mild constipation ; Start 11/06/17 at 15:15 Sennosides (Senokot) 17.2 mg Q12H PRN PO Moderate constipation; Start 11/06/17 at 15:15 Bisacodyl (Dulcolax Supp) 10 mg DAILY PRN RECTAL SEVERE CONSITIPATION; Start at 15:15 Lactulose (Lactulose Liq) 30 ml DAILY PRN PO SEVERE CONSITIPATION; Start at 15:15 Insulin Human Regular 100 units/ Sodium Chloride 100 ml @ 7.9 mls/hr TITRATE PRN IV Blood Glucose Control Last administered on 11/06/17at 16:33; Start at 16:45 Insulin Detemir (Levemir Inj) 15 units ONCE ONCE SQ Last administered on at 23:30; Start 11/06/17 at 23:30; Stop 11/06/17 at 23:35; Status DC Magnesium Oxide (Mag-Ox) 800 mg ONCE ONCE PO Last administered on 11/06/17at 23 :30; Start 11/06/17 at 23:30; Stop 11/06/17 at 23:35; Status DC Potassium Phosphate (K-Phos) 1,000 mg ONCE ONCE PO Last administered on at 23:30; Start 11/06/17 at 23:30; Stop 11/06/17 at 23:36; Status DC A/P Problem List: (1) RADHA (acute kidney injury) ICD Code: N17.9 - Acute kidney failure, unspecified (2) Vertigo ICD Code: R42 - Dizziness and giddiness (3) DKA (diabetic ketoacidoses) ICD Code: E13.10 - Other specified diabetes mellitus with ketoacidosis without coma (4) Diabetes ICD Code: E11.9 - Type 2 diabetes mellitus without complications (5) CAD (coronary artery disease) ICD Code: I25.10 - Atherosclerotic heart disease of [place] coronary artery without angina pectoris Status: Chronic (6) Generalized weakness ICD Code: R53.1 - Weakness (7) Diabetes mellitus with hyperglycemia, with long-term current use of insulin ICD Code: E11.65 - Type 2 diabetes mellitus with hyperglycemia; Z79.4 - assisted (current) use of insulin Status: Acute (8) Noncompliance with medication regimen ICD Code: Z91.14 - Patient's other noncompliance with medication regimen; Z79.4 - assisted (current) use of insulin Status: Acute (9) Hyponatremia ICD Code: E87.1 - Hypo-osmolality and hyponatremia Status: Acute (10) Dehydration with hyponatremia ICD Code: E87.1 - Hypo-osmolality and hyponatremia Assessment and Plan Diabetic ketoacidosis due to noncompliance with medications and not taking insulin and not following diabetic diet will place on insulin drip. Continue on fluids. We will place on potassium and magnesium and phosphorus protocols IMPROVED OFF DRIP PLACE ON MEDIUM DOSE SLIDING SCALE LEVEMIR 15 UNITS SUBQ BID [facility] RN AND PT Hypertension resume home medications Coronary artery disease continue on Plavix Hyponatremia continue on fluids BPH resume home medications Restless leg continue on his ropinirole Depression and anxiety continue on his Lexapro peripheral neuropathy continue on gabapentin Malignant medical noncompliance recommend that patient actually take his medication Coronary artery disease with history of CABG 4 and up to 15 cardiac stents Dehydration and hyponatremia due to DKA Acute kidney injury will continue on rehydration monitor in the ICU on insulin drip Ask case management for help regarding discharge Discharge Planning PENDING DM IMPROVEMENT [facility] RN AND PATIENT Problem Qualifiers (1) Diabetes: (2) Diabetes mellitus with hyperglycemia, with long-term current use of insulin : Qualified Codes: E11.65 - Type 2 diabetes mellitus with hyperglycemia; Z79.4 - terminal worker (current) use of insulin Shaun Malin DO Nov 07, 2017 08:36
[2017-11-07] MEDS ORDERED: DEXTROSE 50% IN WATER 50 ML VIAL(D50) IV PUSH PRN (08:45)
[2017-11-07] MEDS ORDERED: DC previous DKA orders (HMC 1917) ONE (08:45)
[2017-11-07] MEDS ORDERED: DC Insulin drip 2 hrs post basal insulin dose ONE (08:45)
[2017-11-07] MEDS ORDERED: GLUCAGON 1 MG/ML VIAL OTHER PRN ×2 (08:45)
[2017-11-07] MEDS: ESCITALOPRAM OXALATE 20 MG TAB PO SCH (08:58)
[2017-11-07] MEDS: GABAPENTIN 100 MG CAP PO SCH ×3 (08:59→17:25)
[2017-11-07] MEDS: PANTOPRAZOLE SOD 40 MG DELAYED RELEASE TAB PO SCH ×2 (08:59→21:06)
[2017-11-07] MEDS: CLOPIDOGREL 75 MG TAB PO SCH (08:59)
[2017-11-07] MEDS: DOCUSATE SODIUM 50 MG/SENNA 8.6 MG TAB PO SCH ×2 (09:00→21:00)
[2017-11-07] MEDS: TAMSULOSIN HCL 0.4 MG CAP PO SCH (09:00)
[2017-11-07] MEDS: FINASTERIDE 5 MG TAB PO SCH (09:00)
[2017-11-07] MEDS: SODIUM CHLORIDE 0.9% FLUSH 10 ML FLUSH IV FLUSH SCH ×2 (09:01→21:07)
[2017-11-07] MEDS: INSULIN DETEMIR 100 UNITS/ML VIAL SQ SCH ×2 (09:47→21:07)
[2017-11-07 11:31] LABS: BICARBONATE 21.1 MEQ/L (21.0-32.0); CALCIUM 8.3 MG/DL (8.5-10.1); CREATININE 0.83 MG/DL (0.60-1.30)
[2017-11-07 11:35] LABS: PHOSPHORUS 1.7 MG/DL (2.5-4.9); TROPONIN I 0.02 NG/ML (0.02-0.05)
[2017-11-07] MEDS: INSULIN ASPART SUPPLEMENTAL SCALE SQ SCH ×3 (12:10→21:06)
[2017-11-07] MEDS: MECLIZINE HCL 25 MG TAB PO SCH ×2 (13:51→21:06)
[2017-11-07 15:00] LABS: BICARBONATE 20.6 MEQ/L (21.0-32.0); CALCIUM 7.7 MG/DL (8.5-10.1); CREATININE 0.7 MG/DL (0.60-1.30); MAGNESIUM 1.9 MG/DL (1.5-2.5); PHOSPHORUS 1.4 MG/DL (2.5-4.9)
[2017-11-07 15:30] LABS: HEMOGLOBIN A1C 16.7 % (4.3-6.0)
[2017-11-07] MEDS: ENOXAPARIN SODIUM 30 MG/0.3 ML SYRINGE SQ SCH (17:25)
--- NOTE | 2017-11-07 23:51 | EKG ---
Date Performed: 11/06/2017 Time Performed: 11:43:41 PTAGE: 66 years EKG: ATRIAL FIBRILLATION MARKED RIGHT AXIS DEVIATION RIGHT BUNDLE BRANCH BLOCK ABNORMAL ECG PREVIOUS TRACING : 10/25/2017 21.26 Since the previous tracing, no significant change noted DOCTOR: Vick Rubin Interpretating Date/Time 11/07/2017 23:47:34
[2017-11-08] VITALS (13 sets, daily range): BP systolic 85–158; BP diastolic 48–73; PULSE 67–107; RESP 10–22; TEMP 98.7–99.6; O2SAT 95–100
[2017-11-08] MEDS: CHLORHEXIDINE GLUCONATE 2 % 1 PACK (2 CLOTHS) TOP SCH (04:00)
[2017-11-08] MEDS: MECLIZINE HCL 25 MG TAB PO SCH ×3 (05:46→20:51)
[2017-11-08 05:56] LABS: AUTOMATED NEUTROPHIL # 6.2 TH/MM3 (1.8-7.7); BASOPHIL % 0.5 % (0.0-2.0); EOSINOPHIL % 0.5 % (0.0-4.0); HEMATOCRIT 36.9 % (39.0-51.0); HEMOGLOBIN 12.8 GM/DL (13.0-17.0); LYMPH % 17.1 % (9.0-44.0); LYMPHOCYTE # 1.4 TH/MM3 (1.0-4.8); MEAN CELL VOLUME 86.5 FL (80.0-100.0); MEAN CORPUSCULAR HEMOGLOBIN 29.9 PG (27.0-34.0); MEAN CORPUSCULAR HGB CONC 34.6 % (32.0-36.0); MONO % 6.8 % (0.0-8.0); MONOCYTE # 0.6 TH/MM3 (0-0.9); NEUT % 75.1 % (16.0-70.0); PLATELET COUNT 216 TH/MM3 (150-450); RED BLOOD COUNT 4.26 MIL/MM3 (4.50-5.90); RED CELL DISTRIBUTION WIDTH 14.3 % (11.6-17.2); WHITE BLOOD COUNT 8.2 TH/MM3 (4.0-11.0)
[2017-11-08 06:25] LABS: ALBUMIN 2.6 GM/DL (3.4-5.0); AST (GOT) 11 U/L (15-37); BLOOD UREA NITROGEN 14 MG/DL (7-18); CALCIUM 7.8 MG/DL (8.5-10.1); CHLORIDE 110 MEQ/L (98-107); CREATININE 0.51 MG/DL (0.60-1.30); GLOMERULAR FILTRATION RATE 164 ML/MIN (>89); GLUCOSE,RANDOM 83 MG/DL (74-106); SODIUM (NA) 140 MEQ/L (136-145)
[2017-11-08 06:34] LABS: ALKALINE PHOSPHATASE 47 U/L (45-117); ALT (GPT) 14 U/L (12-78); MAGNESIUM 1.9 MG/DL (1.5-2.5); PHOSPHORUS 1.5 MG/DL (2.5-4.9); TOTAL BILIRUBIN ADULT 0.3 MG/DL (0.2-1.0); TOTAL PROTEIN 5.5 GM/DL (6.4-8.2)
[2017-11-08] MEDS: INSULIN ASPART SUPPLEMENTAL SCALE SQ SCH ×4 (08:00→20:50)
[2017-11-08] MEDS: PANTOPRAZOLE SOD 40 MG DELAYED RELEASE TAB PO SCH ×2 (08:09→20:51)
[2017-11-08] MEDS: TAMSULOSIN HCL 0.4 MG CAP PO SCH (08:09)
[2017-11-08] MEDS: CLOPIDOGREL 75 MG TAB PO SCH (08:09)
[2017-11-08] MEDS: GABAPENTIN 100 MG CAP PO SCH ×3 (08:10→17:07)
[2017-11-08] MEDS: FINASTERIDE 5 MG TAB PO SCH (08:10)
[2017-11-08] MEDS: ESCITALOPRAM OXALATE 20 MG TAB PO SCH (08:10)
[2017-11-08] MEDS: DOCUSATE SODIUM 50 MG/SENNA 8.6 MG TAB PO SCH ×2 (08:10→20:51)
[2017-11-08] MEDS: INSULIN DETEMIR 100 UNITS/ML VIAL SQ SCH ×2 (08:11→20:50)
[2017-11-08] MEDS: SODIUM CHLORIDE 0.9% FLUSH 10 ML FLUSH IV FLUSH SCH ×2 (08:13→20:51)
--- NOTE | 2017-11-08 09:12 | HHI.PR ---
Subjective Remarks Patient is a 66y male with a history of DM, CAD with CABGx4, GERD, medication noncompliance who presents to the ED via [facility] for nausea, vomiting and abdominal pain for 3 days. Says his symptoms started 3 days ago because he ' could not find his meds' and therefore has not taken any medication since then. Patient is a diabetic and is supposed to be insulin. He has not been taking any of his insulin. Presents with persistent nausea and vomiting over the past 3 days and is found to be in DKA. He denies fevers but has felt chills. Last BM this morning which was normal for him. [facility] administered zofran 4mg IV with minimal improvement in symptoms. Says he has 'chest pain' located from his midsternal region to his midabdomen. Described as constant, non radiating and no palliative or provocative factors. Patient has had lots of vomiting. Has had lots of issues with acid indigestion. Has not been taking any of his medications for at least the past 3 days if not longer Patient has blatant medical noncompliance 11-07 BLOOD SUGARS IMPROVED TAKEN OFF DRIP BY MY [employer] LAST NIGHT [facility] RN AND PT RESTART LEVEMIR 15 UNITS SUBQ BID WITH MEDIUM DOSE SLIDING SCALE CASE MANAGEMENT FOR DC PLANNING TO SNF IF ABLE TO HAPPEN PT AND OT NOTES RECOMMEND SNF AM LABS 11-08 needs POTASSIUM AND PHOSPHOROUS REPLACED [facility] RN AND PT OK OUT OF ICU LATER TODAY INCREASE ACTIVITY COMPLAINS OF DYSPHAGIA AND FOOD GETTING STUCK CONSULT GI Objective Vitals Vital Signs Date Time Temp Pulse Resp B/P (MAP) Pulse Ox O2 Delivery O2 Flow Rate FiO2 11/08/17 06:00 76 11/08/17 04:00 67 11/08/17 04:00 98.8 67 10 123/73 (90) 99 11/08/17 02:00 77 11/08/17 00:00 99.0 77 20 123/58 (79) 95 11/08/17 00:00 77 11/07/17 22:00 90 11/07/17 20:00 82 11/07/17 20:00 99.4 82 13 156/98 (117) 98 11/07/17 18:23 95 11/07/17 18:00 119 11/07/17 16:00 81 11/07/17 16:00 99.3 81 19 95/53 (67) 96 11/07/17 14:00 87 11/07/17 12:00 92 11/07/17 12:00 98.6 92 12 130/60 (83) 100 11/07/17 10:00 93 I/O 11/07/17 11/07/17 11/07/17 11/08/17 11/08/17 11/08/17 07:00 15:00 23:00 07:00 15:00 23:00 Intake Total 360 ml 1000 ml Output Total 400 ml Balance -40 ml 1000 ml Intake Oral 360 ml 1000 ml Output Urine Total 400 ml # Voids 2 3 # Bowel Movements 0 Result Diagram: 11/08/17 0410 11/08/17 0410 Other Results Laboratory Tests Test 11/06/17 11:49 11/06/17 13:16 11/06/17 14:50 11/06/17 20:20 White Blood Count 14.6 TH/MM3 Red Blood Count 5.01 MIL/MM3 Hemoglobin 15.1 GM/DL Hematocrit 46.1 % Mean Corpuscular Volume 92.1 FL Mean Corpuscular Hemoglobin 30.2 PG Mean Corpuscular Hemoglobin Concent 32.8 % Red Cell Distribution Width 14.4 % Platelet Count 271 TH/MM3 Mean Platelet Volume 9.7 FL Neutrophils (%) (Auto) 89.0 % Lymphocytes (%) (Auto) 8.3 % Monocytes (%) (Auto) 2.2 % Eosinophils (%) (Auto) 0.1 % Basophils (%) (Auto) 0.4 % Neutrophils # (Auto) 13.0 TH/MM3 Lymphocytes # (Auto) 1.2 TH/MM3 Monocytes # (Auto) 0.3 TH/MM3 Eosinophils # (Auto) 0.0 TH/MM3 Basophils # (Auto) 0.1 TH/MM3 CBC Comment DIFF FINAL Differential Comment Prothrombin Time 10.0 SEC Prothromb Time International Ratio 1.0 RATIO Activated Partial Thromboplast Time 21.1 SEC Blood Urea Nitrogen 30 MG/DL 31 MG/DL Creatinine 1.13 MG/DL 0.97 MG/DL Random Glucose 473 MG/DL 180 MG/DL Total Protein 7.3 GM/DL 5.4 GM/DL Albumin 3.8 GM/DL Calcium Level 9.4 MG/DL 6.9 MG/DL Magnesium Level 2.1 MG/DL 1.5 MG/DL Alkaline Phosphatase 64 U/L Aspartate Amino Transf (AST/SGOT) 12 U/L Alanine Aminotransferase (ALT/SGPT) 20 U/L Total Bilirubin 0.5 MG/DL Sodium Level 121 MEQ/L 143 MEQ/L Potassium Level 3.9 MEQ/L 4.5 MEQ/L Chloride Level 85 MEQ/L 115 MEQ/L Carbon Dioxide Level 14.1 MEQ/L 14.1 MEQ/L Anion Gap 22 MEQ/L 14 MEQ/L Estimat Glomerular Filtration Rate 65 ML/MIN 78 ML/MIN Phosphorus Level 4.6 MG/DL 1.5 MG/DL Total Creatine Kinase 47 U/L 63 U/L Troponin I LESS THAN 0.02 NG/ML 0.02 NG/ML Lipase 84 U/L B-Hydroxybutyrate 13.68 MMOL/L Urine Color LIGHT-YELLOW Urine Turbidity CLEAR Urine pH 5.0 Urine Specific [place] 1.029 Urine Protein NEG mg/dL Urine Glucose (UA) 1000 mg/dL Urine Ketones 150 mg/dL Urine Occult Blood NEG Urine Nitrite NEG Urine Bilirubin NEG Urine Urobilinogen LESS THAN 2.0 MG/DL Urine Leukocyte Esterase NEG Urine RBC LESS THAN 1 /hpf Urine WBC 1 /hpf Microscopic Urinalysis Comment CULT NOT INDICATED Blood Gas Puncture Site LT RADIAL Blood Gas Patient Temperature 98.6 Blood Gas HCO3 9 mmol/L Blood Gas Base Excess -16.5 mmol/L Blood Gas Oxygen Saturation 96 % Arterial Blood pH 7.31 Arterial Blood Partial Pressure CO2 18 mmHg Arterial Blood Partial Pressure O2 117 mmHG Arterial Blood Oxygen Content 19.4 Vol % Arterial Blood Carboxyhemoglobin 0.1 % Arterial Blood Methemoglobin 0.6 % Blood Gas Hemoglobin 14.3 G/DL Blood Gas Inspired Oxygen 21 % Protein Corrected Calcium 7.8 MG/DL Test 11/06/17 20:45 11/07/17 03:05 11/07/17 10:51 11/07/17 13:49 Nasal Screen MRSA (PCR) MRSA NOT DETECTED White Blood Count 15.1 TH/MM3 Red Blood Count 4.37 MIL/MM3 Hemoglobin 13.4 GM/DL Hematocrit 37.8 % Mean Corpuscular Volume 86.6 FL Mean Corpuscular Hemoglobin 30.7 PG Mean Corpuscular Hemoglobin Concent 35.5 % Red Cell Distribution Width 14.2 % Platelet Count 237 TH/MM3 Mean Platelet Volume 9.0 FL Neutrophils (%) (Auto) 80.1 % Lymphocytes (%) (Auto) 11.8 % Monocytes (%) (Auto) 7.5 % Eosinophils (%) (Auto) 0.1 % Basophils (%) (Auto) 0.5 % Neutrophils # (Auto) 12.1 TH/MM3 Lymphocytes # (Auto) 1.8 TH/MM3 Monocytes # (Auto) 1.1 TH/MM3 Eosinophils # (Auto) 0.0 TH/MM3 Basophils # (Auto) 0.1 TH/MM3 CBC Comment DIFF FINAL Differential Comment Hematology Comments Blood Urea Nitrogen 28 MG/DL 22 MG/DL 19 MG/DL Creatinine 0.87 MG/DL 0.83 MG/DL 0.70 MG/DL Random Glucose 117 MG/DL 188 MG/DL 227 MG/DL Total Protein 6.0 GM/DL Albumin 3.1 GM/DL Calcium Level 7.6 MG/DL 8.3 MG/DL 7.7 MG/DL Phosphorus Level 1.6 MG/DL 1.7 MG/DL 1.4 MG/DL Magnesium Level 1.9 MG/DL 2.0 MG/DL 1.9 MG/DL Alkaline Phosphatase 48 U/L Aspartate Amino Transf (AST/SGOT) 10 U/L Alanine Aminotransferase (ALT/SGPT) 14 U/L Total Bilirubin 0.3 MG/DL Sodium Level 143 MEQ/L 140 MEQ/L 142 MEQ/L Potassium Level 3.6 MEQ/L 3.5 MEQ/L 3.6 MEQ/L Chloride Level 115 MEQ/L 109 MEQ/L 110 MEQ/L Carbon Dioxide Level 19.6 MEQ/L 21.1 MEQ/L 20.6 MEQ/L Anion Gap 8 MEQ/L 10 MEQ/L 11 MEQ/L Estimat Glomerular Filtration Rate 88 ML/MIN 93 ML/MIN 114 ML/MIN Hemoglobin A1c 16.7 % Free Thyroxine 0.99 NG/DL Thyroid Stimulating Hormone 3rd Gen 0.795 uIU/ML B-Hydroxybutyrate 0.50 MMOL/L 1.46 MMOL/L Total Creatine Kinase 64 U/L Troponin I 0.02 NG/ML Test 11/08/17 04:10 White Blood Count 8.2 TH/MM3 Red Blood Count 4.26 MIL/MM3 Hemoglobin 12.8 GM/DL Hematocrit 36.9 % Mean Corpuscular Volume 86.5 FL Mean Corpuscular Hemoglobin 29.9 PG Mean Corpuscular Hemoglobin Concent 34.6 % Red Cell Distribution Width 14.3 % Platelet Count 216 TH/MM3 Mean Platelet Volume 9.0 FL Neutrophils (%) (Auto) 75.1 % Lymphocytes (%) (Auto) 17.1 % Monocytes (%) (Auto) 6.8 % Eosinophils (%) (Auto) 0.5 % Basophils (%) (Auto) 0.5 % Neutrophils # (Auto) 6.2 TH/MM3 Lymphocytes # (Auto) 1.4 TH/MM3 Monocytes # (Auto) 0.6 TH/MM3 Eosinophils # (Auto) 0.0 TH/MM3 Basophils # (Auto) 0.0 TH/MM3 CBC Comment DIFF FINAL Differential Comment Blood Urea Nitrogen 14 MG/DL Creatinine 0.51 MG/DL Random Glucose 83 MG/DL Total Protein 5.5 GM/DL Albumin 2.6 GM/DL Calcium Level 7.8 MG/DL Phosphorus Level 1.5 MG/DL Magnesium Level 1.9 MG/DL Alkaline Phosphatase 47 U/L Aspartate Amino Transf (AST/SGOT) 11 U/L Alanine Aminotransferase (ALT/SGPT) 14 U/L Total Bilirubin 0.3 MG/DL Sodium Level 140 MEQ/L Potassium Level 3.1 MEQ/L Chloride Level 110 MEQ/L Carbon Dioxide Level 23.0 MEQ/L Anion Gap 7 MEQ/L Estimat Glomerular Filtration Rate 164 ML/MIN Objective Remarks GENERAL: AWAKE ALERT AND ORIENTED X3 IN NAD SKIN: Warm and dry. HEAD: Atraumatic. Normocephalic. EYES: Pupils equal and round. No scleral icterus. No injection or drainage. EOMI , ENT: No nasal bleeding or discharge. Mucous membranes pink and moist. ORAL MUCOSA MOIST NECK: Trachea midline. No JVD. SUPPLE CARDIOVASCULAR: Regular rate and rhythm. S1, S2 NO S3 OR S4 RESPIRATORY: No accessory muscle use. Clear to auscultation. Breath sounds equal bilaterally. GASTROINTESTINAL: Abdomen soft, non-tender, nondistended. Hepatic and splenic margins not palpable. MUSCULOSKELETAL: Extremities without clubbing, cyanosis, or edema. No obvious deformities. NEUROLOGICAL: Awake and alert. No obvious cranial nerve deficits. Motor grossly within normal limits. 4 out of 5 muscle strength in the arms and legs. Normal speech. PSYCHIATRIC: Appropriate mood and affect; insight and judgment normal. Procedures NONE Medications and IVs Current Medications Sodium Chloride 500 ml @ 500 mls/hr ONCE ONCE IV Last administered on at 11:57; Start 11/06/17 at 11:45; Stop 11/06/17 at 12:44; Status DC Metoclopramide HCl (Reglan Inj) 10 mg ONCE ONCE IV PUSH Last administered on at 11:58; Start 11/06/17 at 11:45; Stop 11/06/17 at 11:46; Status DC Pantoprazole Sodium (Protonix Inj) 40 mg ONCE ONCE IV PUSH Last administered on 11/06/17at 11:58; Start 11/06/17 at 11:45; Stop 11/06/17 at 11:46; Status DC Insulin Detemir (Levemir Inj) 30 units ONCE STAT SQ Last administered on 12:01; Start 11/06/17 at 11:50; Stop 11/06/17 at 11:52; Status DC Insulin Aspart (NovoLOG INJ) 8 units ONCE ONCE SQ Last administered on at 12:01; Start 11/06/17 at 12:00; Stop 11/06/17 at 12:01; Status DC Sodium Chloride 1,000 ml @ 999 mls/hr BOLUS ONCE IV Last administered on 11/06 13:13; Start 11/06/17 at 13:00; Stop 11/06/17 at 14:00; Status DC Sodium Chloride 1,000 ml @ 250 mls/hr Q4H IV Last administered on 11/06/17at 16 :28; Start 11/06/17 at 14:52; Stop 11/07/17 at 08:39; Status DC Dextrose/Sodium Chloride 1,000 ml @ 200 mls/hr Q5H IV Last administered on at 18:56; Start 11/06/17 at 14:52; Stop 11/07/17 at 08:39; Status DC Insulin Human Regular (NovoLIN R INJ) 7 units BOLUS ONCE IV PUSH Last administered on 11/06/17at 16:31; Start 11/06/17 at 15:00; Stop 11/06/17 at 15:44 ; Status DC Insulin Human Regular 100 units/ Sodium Chloride 100 ml @ 7.27 mls/hr TITRATE PRN IV Blood Glucose Control Last administered on 11/06/17at 16:33; Start at 15:00; Stop 11/06/17 at 16:39; Status DC Potassium Chloride 100 ml @ 100 mls/hr Q1H PRN IV SEE LABEL COMMENTS; Start at 15:00; Stop 11/07/17 at 08:39; Status DC Potassium Chloride 100 ml @ 50 mls/hr Q2H PRN IV SEE LABEL COMMENTS; Start at 15:00; Stop 11/07/17 at 08:39; Status DC Potassium Chloride 100 ml @ 100 mls/hr Q1H PRN IV SEE LABEL COMMENTS; Start at 15:00; Stop 11/07/17 at 08:39; Status DC Potassium Chloride 100 ml @ 100 mls/hr Q1H PRN IV SEE LABEL COMMENTS; Start at 15:00; Stop 11/07/17 at 08:39; Status DC Potassium Chloride 100 ml @ 50 mls/hr Q2H PRN IV SEE LABEL COMMENTS; Start at 15:00; Stop 11/07/17 at 08:39; Status DC Potassium Chloride 100 ml @ 50 mls/hr Q2H PRN IV SEE LABEL COMMENTS; Start at 15:00; Stop 11/07/17 at 08:39; Status DC Potassium Chloride 100 ml @ 50 mls/hr Q2H PRN IV SEE LABEL COMMENTS Last administered on 11/06/17at 18:19; Start 11/06/17 at 15:00; Stop 11/07/17 at 08:39 ; Status DC Potassium Chloride 100 ml @ 50 mls/hr Q2H PRN IV SEE LABEL COMMENTS; Start at 15:00; Stop 11/07/17 at 08:39; Status DC Sodium Bicarbonate (Sodium Bicarbonate 8.4% Inj) 100 meq UNSCH PRN IV PUSH SEE LABEL COMMENTS; Start 11/06/17 at 15:00; Stop 11/07/17 at 08:39; Status DC Sodium Bicarbonate (Sodium Bicarbonate 8.4% Inj) 50 meq UNSCH PRN IV PUSH SEE LABEL COMMENTS; Start 11/06/17 at 15:00; Stop 11/07/17 at 08:39; Status DC Sodium Phosphate 15 mmol/Sodium Chloride 105 ml @ 25 mls/hr UNSCH PRN IV SEE LABEL COMMENTS; Start 11/06/17 at 15:00; Stop 11/07/17 at 08:39; Status DC Miscellaneous Information 1 Q361D XX ; Start 11/06/17 at 15:00 Chlorhexidine Gluconate (Chlorhexidine 2% Cloth) 3 pack Taper DAILY@04 TOP Last administered on 11/08/17at 04:00; Start 11/07/17 at 04:00; Stop 11/03/18 at 03:59 Chlorhexidine Gluconate (Chlorhexidine 2% Cloth) 3 pack UNSCH PRN TOP HYGIENIC CARE; Start 11/06/17 at 15:00 Clopidogrel Bisulfate (Plavix) 75 mg DAILY PO Last administered on 11/08/17 08 :09; Start 11/06/17 at 15:15 Escitalopram Oxalate (Lexapro) 20 mg DAILY PO Last administered on 11/08/17 08 :10; Start 11/06/17 at 15:15 Finasteride (Proscar) 5 mg DAILY PO Last administered on 11/08/17 08:10; Start 11/06/17 at 15:15 Gabapentin (Neurontin) 100 mg TID PO Last administered on 11/08/17 08:10; Start 11/06/17 at 18:00 Meclizine HCl (Antivert) 25 mg Q8HR PO Last administered on 11/08/17at 05:46; Start 11/06/17 at 15:15 Pantoprazole Sodium (Protonix) 40 mg BID PO Last administered on 11/08/17 08: 09; Start 11/06/17 at 21:00 Ropinirole HCl (Requip) 0.25 mg TID PO Last administered on 11/08/17 08:10; Start 11/06/17 at 18:00 Tamsulosin HCl (Flomax) 0.4 mg DAILY PO Last administered on 11/08/17 08:09; Start 11/06/17 at 15:15 Sodium Chloride (NS Flush) 2 ml UNSCH PRN IV FLUSH FLUSH AFTER USING IV ACCESS ; Start 11/06/17 at 15:15 Sodium Chloride (NS Flush) 2 ml BID IV FLUSH Last administered on 11/08/17 08: 13; Start 11/06/17 at 21:00 Acetaminophen (Tylenol) 650 mg Q4H PRN PO TEMP > 100.4; Start 11/06/17 at 15:15 Ondansetron HCl (Zofran Inj) 8 mg Q6H PRN IVP NAUSEA OR VOMITING Last administered on 11/06/17at 20:08; Start 11/06/17 at 15:15 Metoclopramide HCl (Reglan Inj) 5 mg Q6H PRN IV PUSH NAUSEA OR VOMITING; Start 11/06/17 at 15:15 Enoxaparin Sodium (Lovenox Inj) 30 mg Q24H SQ Last administered on 11/07/17at 17 :25; Start 11/06/17 at 16:00 Morphine Sulfate (Morphine Inj) 2 mg Q3H PRN IV PUSH Pain 3-5; if unable to take PO; Start 11/06/17 at 15:15 Morphine Sulfate (Morphine Inj) 4 mg Q3H PRN IV PUSH Pain 6-10;if unable to take PO; Start 11/06/17 at 15:15; Stop 11/06/17 at 15:46; Status DC Morphine Sulfate (Morphine Inj) 4 mg Q1H PRN IV PUSH PAIN SCALE 7-10 ( INTRACTABLE); Start 11/06/17 at 15:15 Morphine Sulfate (Morphine Inj) 4 mg Q3H PRN IV PUSH BREAKTHROUGH PAIN; Start 11/06/17 at 15:15 Naloxone HCl (Narcan Inj) 0.4 mg UNSCH PRN IV PUSH SEE LABEL COMMENTS; Start at 15:15 Senna/Docusate Sodium (Sonia-Colace) 1 tab BID PO Last administered on at 08:10; Start 11/06/17 at 21:00 Magnesium Hydroxide (Milk Of Magnesia Liq) 30 ml Q12H PRN PO Mild constipation ; Start 11/06/17 at 15:15 Sennosides (Senokot) 17.2 mg Q12H PRN PO Moderate constipation; Start 11/06/17 at 15:15 Bisacodyl (Dulcolax Supp) 10 mg DAILY PRN RECTAL SEVERE CONSITIPATION; Start at 15:15 Lactulose (Lactulose Liq) 30 ml DAILY PRN PO SEVERE CONSITIPATION; Start at 15:15 Insulin Human Regular 100 units/ Sodium Chloride 100 ml @ 7.9 mls/hr TITRATE PRN IV Blood Glucose Control Last administered on 11/06/17at 16:33; Start at 16:45; Stop 11/07/17 at 11:00; Status DC Insulin Detemir (Levemir Inj) 15 units ONCE ONCE SQ Last administered on at 23:30; Start 11/06/17 at 23:30; Stop 11/06/17 at 23:35; Status DC Magnesium Oxide (Mag-Ox) 800 mg ONCE ONCE PO Last administered on 11/06/17at 23 :30; Start 11/06/17 at 23:30; Stop 11/06/17 at 23:35; Status DC Potassium Phosphate (K-Phos) 1,000 mg ONCE ONCE PO Last administered on at 23:30; Start 11/06/17 at 23:30; Stop 11/06/17 at 23:36; Status DC Insulin Aspart (NovoLOG SUPPLEMENTAL SCALE) 1 ACHS SLIDING SCALE SQ Last administered on 11/07/17at 21:06; Start 11/07/17 at 12:00 Dextrose (D50w (Vial) Inj) 50 ml UNSCH PRN IV PUSH HYPOGLYCEMIA-SEE COMMENTS; Start 11/07/17 at 08:45 Glucagon (Glucagon Inj) 1 mg UNSCH PRN OTHER HYPOGLYCEMIA-SEE COMMENTS; Start 11/07/17 at 08:45 Miscellaneous Information 1 ONCE ONCE .XX Last administered on 11/07/17at 09:02 ; Start 11/07/17 at 08:45; Stop 11/07/17 at 08:46; Status DC Miscellaneous Information 1 ONCE ONCE .XX Last administered on 11/07/17at 09:01 ; Start 11/07/17 at 08:45; Stop 11/07/17 at 08:46; Status DC Insulin Detemir (Levemir Inj) 15 units BID SQ Last administered on 11/08/17at 08 :11; Start 11/07/17 at 09:00 Dextrose (D50w (Vial) Inj) 50 ml UNSCH PRN IV PUSH HYPOGLYCEMIA-SEE COMMENTS; Start 11/07/17 at 08:45; Stop 11/07/17 at 08:45; Status DC Glucagon (Glucagon Inj) 1 mg UNSCH PRN OTHER HYPOGLYCEMIA-SEE COMMENTS; Start 11/07/17 at 08:45; Stop 11/07/17 at 08:45; Status DC A/P Problem List: (1) RADHA (acute kidney injury) ICD Code: N17.9 - Acute kidney failure, unspecified (2) Vertigo ICD Code: R42 - Dizziness and giddiness (3) DKA (diabetic ketoacidoses) ICD Code: E13.10 - Other specified diabetes mellitus with ketoacidosis without coma (4) Diabetes ICD Code: E11.9 - Type 2 diabetes mellitus without complications (5) CAD (coronary artery disease) ICD Code: I25.10 - Atherosclerotic heart disease of [place] coronary artery without angina pectoris Status: Chronic (6) Generalized weakness ICD Code: R53.1 - Weakness (7) Diabetes mellitus with hyperglycemia, with long-term current use of insulin ICD Code: E11.65 - Type 2 diabetes mellitus with hyperglycemia; Z79.4 - termite treater helper (current) use of insulin Status: Acute (8) Noncompliance with medication regimen ICD Code: Z91.14 - Patient's other noncompliance with medication regimen; Z79.4 - snf (current) use of insulin Status: Acute (9) Hyponatremia ICD Code: E87.1 - Hypo-osmolality and hyponatremia Status: Acute (10) Dehydration with hyponatremia ICD Code: E87.1 - Hypo-osmolality and hyponatremia Assessment and Plan Diabetic ketoacidosis due to noncompliance with medications and not taking insulin and not following diabetic diet will place on insulin drip. Continue on fluids. We will place on potassium and magnesium and phosphorus protocols IMPROVED OFF DRIP PLACE ON MEDIUM DOSE SLIDING SCALE LEVEMIR 15 UNITS SUBQ BID [facility] RN AND PT SUGARS ARE BETTER TODAY Hypertension resume home medications Coronary artery disease continue on Plavix Hyponatremia continue on fluids BPH resume home medications Restless leg continue on his ropinirole Depression and anxiety continue on his Lexapro peripheral neuropathy continue on gabapentin Malignant medical noncompliance recommend that patient actually take his medication Coronary artery disease with history of CABG 4 and up to 15 cardiac stents Dehydration and hyponatremia due to DKA Acute kidney injury will continue on rehydration monitor in the ICU on insulin drip HYPOKALEMIA REPLACE HYPOPHOSPHATEMIA REPLACE DYSPHAGIA CONSULT GI- STATES FOOD GETS STUCK IN ESOPHAGUS Ask case management for help regarding discharge Discharge Planning PENDING DM IMPROVEMENT [facility] RN AND PATIENT Problem Qualifiers (1) DKA (diabetic ketoacidoses): Qualified Codes: E11.10 - Type 2 diabetes mellitus with ketoacidosis without coma (2) Diabetes: (3) Diabetes mellitus with hyperglycemia, with long-term current use of insulin : Qualified Codes: E11.65 - Type 2 diabetes mellitus with hyperglycemia; Z79.4 - termite treater helper (current) use of insulin Shaun Malin DO Nov 08, 2017 09:12
[2017-11-08] MEDS ORDERED: MAGNESIUM SULFATE INJ 4 GM in SODIUM CHLORIDE 0.9% INJ 92 ML IV PRN (09:15)
[2017-11-08] MEDS ORDERED: MAGNESIUM SULFATE INJ 2 GM in SODIUM CHLORIDE 0.9% INJ 96 ML IV PRN (09:15)
[2017-11-08] MEDS ORDERED: POTASSIUM PHOSPHATE INJ 30 MMOL in SODIUM CHLOR 0.9% 250 ML INJ 250 ML IV PRN (09:15)
[2017-11-08] MEDS ORDERED: POTASSIUM CHLOR 40 MEQ PREMIX 100 ML IV PRN ×2 (09:15)
[2017-11-08] MEDS ORDERED: POTASSIUM PHOSPHATE MONOBASIC 500 MG TAB PO/TUBE PRN (09:15)
[2017-11-08] MEDS ORDERED: MAGNESIUM OXIDE 400 MG TAB PO PRN (09:15)
[2017-11-08] MEDS ORDERED: POTASSIUM PHOSPHATE MONOBASIC 500 MG TAB PO PRN (09:15)
[2017-11-08] MEDS ORDERED: POTASSIUM CHLORIDE 25 MEQ EFFERVESCENT TAB PO PRN (09:15)
[2017-11-08] MEDS ORDERED: SODIUM PHOSPHATE INJ 30 MMOL in SODIUM CHLOR 0.9% 250 ML INJ 240 ML IV PRN (09:15)
[2017-11-08] MEDS ORDERED: POTASSIUM CHLOR 20 MEQ PREMIX 100 ML IV PRN ×2 (09:15)
[2017-11-08] MEDS: ONDANSETRON HCL 4 MG/2 ML VIAL IVP PRN (10:16)
--- NOTE | 2017-11-08 13:09 | PD.CONS ---
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 He came to the ER Sunday with complaints of nausea, vomiting, abdominal pain. He reports that he has not been taking any of his medication for 3-4 days prior to arrival. In the ER pt had labs and ABG done which revealed DKA. Our service has been consulted to evaluate pt for dysphagia. Pt reports dysphagia with solids and liquids for the past week, feels like his food is getting stuck. States he has this issue when his blood sugars are elevated. Also reports nausea and vomiting, no emesis today but still significant nausea. Denies hematemesis and coffee ground emesis. Also complaining of epigastric pain that radiates into his chest and he associates this with acid reflux. States pain is fairly constant and described as a burning sensation. Take Protonix at home. Also complaining of significant amount of weight loss since June, was 250lbs currently 185 pounds. Likely multifactorial, left him in June also has had significant medical problems. History of cecal tubulovillous adenoma with dysplasia, S/P right hemicolectomy in 2011. Pt does not think he has had colonoscopy since then. Last EGD in November 2016 --> Severe esophagitis, gastritis. Pt denies ETOH, smoking , illicit drug use. (Liza Wang) PFSH Past Medical History Diabetes mellitus insulin requiring uncontrolled Hypertension BPH Coronary artery disease history of CABG History of TIA Syncope Malignant noncompliance Vertigo History of congestive heart failure Atrial fibrillation Colon resection Hypercholesterolemia Chest pain GERD and heartburn Kidney stones Prostate issues with BPH Depression and anxiety Malignant medical noncompliance Past Surgical History History of CABG 4 and stents 15 Colon resection Lithotripsy 5 Right shoulder surgery right hip surgery Bilateral knee arthroscopic Left great toe amputation (Liza Wang) Coded Allergies: penicillin G (Unverified Allergy, Mild, RASH, 10/25/17) milk (Unverified Adverse Reaction, Unknown, UPSET STOMACH, 10/25/17) Family History Hypertension Possible diabetes Social History Quit smoking and quit tobacco about 25 years ago (Liza Wang) Review of Systems Gastrointestinal: COMPLAINS OF: Abdominal pain, Nausea, Vomiting, Difficulty Swallowing, Heartburn, DENIES: Black stools, Bloody stools, Constipation, Diarrhea, Odynophagia, Swelling of Abdomen, Hematemesis (Liza Wang) GI Exam Vitals I&O Vital Signs Date Time Temp Pulse Resp B/P (MAP) Pulse Ox O2 Delivery O2 Flow Rate FiO2 11/08/17 06:00 76 11/08/17 04:00 67 11/08/17 04:00 98.8 67 10 123/73 (90) 99 11/08/17 02:00 77 11/08/17 00:00 99.0 77 20 123/58 (79) 95 11/08/17 00:00 77 11/07/17 22:00 90 11/07/17 20:00 82 11/07/17 20:00 99.4 82 13 156/98 (117) 98 11/07/17 18:23 95 11/07/17 18:00 119 11/07/17 16:00 81 11/07/17 16:00 99.3 81 19 95/53 (67) 96 11/07/17 14:00 87 I/O 11/07/17 11/07/17 11/07/17 11/08/17 11/08/17 11/08/17 07:00 15:00 23:00 07:00 15:00 23:00 Intake Total 360 ml 1000 ml Output Total 400 ml Balance -40 ml 1000 ml Intake Oral 360 ml 1000 ml Output Urine Total 400 ml # Voids 2 3 # Bowel Movements 0 Laboratory Test 11/07/17 13:49 11/08/17 04:10 11/08/17 09:50 Blood Urea Nitrogen 19 MG/DL 14 MG/DL Creatinine 0.70 MG/DL 0.51 MG/DL Random Glucose 227 MG/DL 83 MG/DL Calcium Level 7.7 MG/DL 7.8 MG/DL Phosphorus Level 1.4 MG/DL 1.5 MG/DL 1.5 MG/DL Magnesium Level 1.9 MG/DL 1.9 MG/DL Sodium Level 142 MEQ/L 140 MEQ/L Potassium Level 3.6 MEQ/L 3.1 MEQ/L Chloride Level 110 MEQ/L 110 MEQ/L Carbon Dioxide Level 20.6 MEQ/L 23.0 MEQ/L Anion Gap 11 MEQ/L 7 MEQ/L Estimat Glomerular Filtration Rate 114 ML/MIN 164 ML/MIN White Blood Count 8.2 TH/MM3 Red Blood Count 4.26 MIL/MM3 Hemoglobin 12.8 GM/DL Hematocrit 36.9 % Mean Corpuscular Volume 86.5 FL Mean Corpuscular Hemoglobin 29.9 PG Mean Corpuscular Hemoglobin Concent 34.6 % Red Cell Distribution Width 14.3 % Platelet Count 216 TH/MM3 Mean Platelet Volume 9.0 FL Neutrophils (%) (Auto) 75.1 % Lymphocytes (%) (Auto) 17.1 % Monocytes (%) (Auto) 6.8 % Eosinophils (%) (Auto) 0.5 % Basophils (%) (Auto) 0.5 % Neutrophils # (Auto) 6.2 TH/MM3 Lymphocytes # (Auto) 1.4 TH/MM3 Monocytes # (Auto) 0.6 TH/MM3 Eosinophils # (Auto) 0.0 TH/MM3 Basophils # (Auto) 0.0 TH/MM3 CBC Comment DIFF FINAL Differential Comment Total Protein 5.5 GM/DL Albumin 2.6 GM/DL Alkaline Phosphatase 47 U/L Aspartate Amino Transf (AST/SGOT) 11 U/L Alanine Aminotransferase (ALT/SGPT) 14 U/L Total Bilirubin 0.3 MG/DL Physical Examination HEENT: Normocephalic; atraumatic CHEST: Even/unlabored CARDIAC: Bigeminy on monitor ABDOMEN: Soft, nondistended, epigastric TTP, bowel sounds active EXTREMITIES: No clubbing, cyanosis, or edema. SKIN: Normal; no rash; no jaundice. 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 (Liza Wang) Assessment and Plan Plan Assessment: - Dysphagia- states for the past week, with both solids and liquids. History of dysphagia, states worse when BGL elevated. Associated acid reflux, heartburn, epigastric pain, nausea, and vomiting. Denies hematemesis and coffee ground emesis. Takes Protonix at home which normally controls symptoms. Last EGD (November 2016) --> Severe esophagitis, gastritis. - Weight loss- Reports 250 lbs in June currently 185 lbs. Likely multifactorial given significant medical problems and noncompliance as well as his leaving him in June. 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 Has not had colonoscopy since thenct - DKA- Stopped taking all medications including insulin for 3-4 days prior to coming to the hospital - [facility] [place]- ? electrolyte imbalance- phosphorus and potassium replacement Plan: Barium swallow EGD/colonoscopy Sunday Obtain consent Clear liquids Sunday Magnesium Citrate prep NPO after MN Sunday Hold Plavix CT abdomen W pelvis W contrast Protonix Further recommendations based on clinical course and results of above Pt has been seen and examined by myself and Dr. Lawler and this note is written on his behalf (Liza Wang) Physician Comments Plan as above, discussed the need for EGD/Colonoscopy Sunday. Thank you for the consult. (Miguel Angel Lawler MD) Liza Wang Nov 08, 2017 13:09 Miguel Angel Lawler MD Nov 08, 2017 21:13
[2017-11-08] MEDS: ENOXAPARIN SODIUM 30 MG/0.3 ML SYRINGE SQ SCH (17:08)
[2017-11-09] VITALS (14 sets, daily range): BP systolic 118–163; BP diastolic 57–75; PULSE 69–100; RESP 12–34; TEMP 98.4–98.9; O2SAT 86–100
[2017-11-09] MEDS: CHLORHEXIDINE GLUCONATE 2 % 1 PACK (2 CLOTHS) TOP SCH (04:00)
[2017-11-09] MEDS: MECLIZINE HCL 25 MG TAB PO SCH ×3 (06:00→21:23)
[2017-11-09] MEDS: PANTOPRAZOLE SOD 40 MG DELAYED RELEASE TAB PO SCH ×2 (07:53→21:24)
[2017-11-09] MEDS: ESCITALOPRAM OXALATE 20 MG TAB PO SCH (07:53)
[2017-11-09] MEDS: GABAPENTIN 100 MG CAP PO SCH ×3 (07:53→18:02)
[2017-11-09] MEDS: DOCUSATE SODIUM 50 MG/SENNA 8.6 MG TAB PO SCH ×2 (07:53→21:00)
[2017-11-09] MEDS: TAMSULOSIN HCL 0.4 MG CAP PO SCH (07:53)
[2017-11-09] MEDS: FINASTERIDE 5 MG TAB PO SCH (07:53)
[2017-11-09] MEDS: INSULIN DETEMIR 100 UNITS/ML VIAL SQ SCH ×2 (07:54→21:26)
[2017-11-09] MEDS: SODIUM CHLORIDE 0.9% FLUSH 10 ML FLUSH IV FLUSH SCH ×2 (07:54→21:27)
[2017-11-09] MEDS: INSULIN ASPART SUPPLEMENTAL SCALE SQ SCH ×4 (07:54→21:27)
[2017-11-09 09:57] LABS: AUTOMATED NEUTROPHIL # 3.9 TH/MM3 (1.8-7.7); BASOPHIL % 0.7 % (0.0-2.0); EOSINOPHIL % 0.8 % (0.0-4.0); HEMATOCRIT 43.7 % (39.0-51.0); HEMOGLOBIN 14.9 GM/DL (13.0-17.0); LYMPH % 24.3 % (9.0-44.0); LYMPHOCYTE # 1.4 TH/MM3 (1.0-4.8); MEAN CELL VOLUME 86.8 FL (80.0-100.0); MEAN CORPUSCULAR HEMOGLOBIN 29.7 PG (27.0-34.0); MEAN CORPUSCULAR HGB CONC 34.2 % (32.0-36.0); MEAN PLATELET VOLUME 9.3 FL (7.0-11.0); MONOCYTE # 0.3 TH/MM3 (0-0.9); NEUT % 68.2 % (16.0-70.0); PLATELET COUNT 216 TH/MM3 (150-450); RED BLOOD COUNT 5.03 MIL/MM3 (4.50-5.90); RED CELL DISTRIBUTION WIDTH 14.1 % (11.6-17.2); WHITE BLOOD COUNT 5.7 TH/MM3 (4.0-11.0)
[2017-11-09 10:59] LABS: ALKALINE PHOSPHATASE 54 U/L (45-117); ALT (GPT) 16 U/L (12-78); AST (GOT) 13 U/L (15-37); BICARBONATE 22.1 MEQ/L (21.0-32.0); BLOOD UREA NITROGEN 11 MG/DL (7-18); CALCIUM 8.7 MG/DL (8.5-10.1); CHLORIDE 104 MEQ/L (98-107); CREATININE 0.58 MG/DL (0.60-1.30); GLOMERULAR FILTRATION RATE 141 ML/MIN (>89); GLUCOSE,RANDOM 168 MG/DL (74-106); MAGNESIUM 1.9 MG/DL (1.5-2.5); PHOSPHORUS 1.8 MG/DL (2.5-4.9); SODIUM (NA) 136 MEQ/L (136-145); TOTAL BILIRUBIN ADULT 0.4 MG/DL (0.2-1.0); TOTAL PROTEIN 5.9 GM/DL (6.4-8.2)
--- NOTE | 2017-11-09 11:06 | RADRPT ---
EXAM DATE/TIME: 11/09/2017 00:00 [facility] COMPARISON: No previous studies available for comparison. INDICATIONS : Dysphagia. FLUORO TIME: 2.0 minutes IMAGE COUNT: 0 CONTRAST: Dose as prescribed by speech pathologist. MEDICAL HISTORY : None. SURGICAL HISTORY : pre cancerous colon surgery ENCOUNTER: Initial ACUITY: 2 weeks PAIN SCORE: 4/10 LOCATION: Bilateral neck FINDINGS: A modified barium swallow was performed with speech pathology. Patient was given a variety of liquids to swallow. Multiple episodes of laryngeal penetration noted with aspiration. For a full detailed report, see report by the speech pathologist. CONCLUSION: 1. Laryngeal penetration and aspiration. See speech pathology report. Gabriele Zheng MD on November 09, 2017 at 11:03 Board Certified Radiologist. This report was verified electronically.
--- NOTE | 2017-11-09 14:21 | HHI.GIFU ---
Subjective Remarks Pt resting in bed. He wants to eat. (Mary Escobar) Objective Vitals I&O Vital Signs Date Time Temp Pulse Resp B/P (MAP) Pulse Ox O2 Delivery O2 Flow Rate FiO2 11/09/17 12:00 80 11/09/17 12:00 98.6 80 16 144/61 (88) 99 11/09/17 10:00 97 11/09/17 09:00 88 11/09/17 09:00 88 15 99 11/09/17 08:00 98.4 80 26 163/75 (104) 98 11/09/17 08:00 80 11/09/17 07:00 73 13 156/72 (100) 100 11/09/17 07:00 73 11/09/17 06:00 79 11/09/17 04:00 69 11/09/17 04:00 98.9 69 14 118/58 (78) 99 11/09/17 02:00 74 11/09/17 00:00 69 11/09/17 00:00 98.7 69 12 127/66 (86) 96 11/08/17 22:00 72 11/08/17 21:14 98 21 11/08/17 20:00 99.4 78 14 158/70 (99) 100 11/08/17 20:00 78 11/08/17 18:00 107 11/08/17 16:00 87 11/08/17 16:00 99.4 87 22 145/69 (94) 99 I/O 11/08/17 11/08/17 11/08/17 11/09/17 11/09/17 11/09/17 07:00 15:00 23:00 07:00 15:00 23:00 Intake Total 1000 ml 585 ml 480 ml Output Total 675 ml 1100 ml Balance 1000 ml -90 ml -620 ml Intake Oral 1000 ml 325 ml 480 ml IV Total 260 ml Output Urine Total 675 ml 1100 ml # Voids 3 # Bowel Movements 0 0 Laboratory Laboratory Tests Test 11/09/17 08:33 White Blood Count 5.7 Red Blood Count 5.03 Hemoglobin 14.9 Hematocrit 43.7 Mean Corpuscular Volume 86.8 Mean Corpuscular Hemoglobin 29.7 Mean Corpuscular Hemoglobin Concent 34.2 Red Cell Distribution Width 14.1 Platelet Count 216 Mean Platelet Volume 9.3 Neutrophils (%) (Auto) 68.2 Lymphocytes (%) (Auto) 24.3 Monocytes (%) (Auto) 6.0 Eosinophils (%) (Auto) 0.8 Basophils (%) (Auto) 0.7 Neutrophils # (Auto) 3.9 Lymphocytes # (Auto) 1.4 Monocytes # (Auto) 0.3 Eosinophils # (Auto) 0.0 Basophils # (Auto) 0.0 CBC Comment DIFF FINAL Differential Comment Blood Urea Nitrogen 11 Creatinine 0.58 Random Glucose 168 Total Protein 5.9 Albumin 3.0 Calcium Level 8.7 Phosphorus Level 1.8 Magnesium Level 1.9 Alkaline Phosphatase 54 Aspartate Amino Transf (AST/SGOT) 13 Alanine Aminotransferase (ALT/SGPT) 16 Total Bilirubin 0.4 Sodium Level 136 Potassium Level 3.5 Chloride Level 104 Carbon Dioxide Level 22.1 Anion Gap 10 Estimat Glomerular Filtration Rate 141 Imaging Last Impressions Modified Barium Swallow 11/09/17 0000 Signed Impressions: Service Date/Time: Thursday, November 09, 2017 00:00 - CONCLUSION: 1. Laryngeal penetration and aspiration. See speech pathology report. Gabriele Zheng MD Physical Exam HEENT: PERRL; normocephalic; atraumatic; no jaundice. CHEST: diminished CARDIAC: RRR ABDOMEN: Soft, nondistended, diffusely TTP; no hepatosplenomegaly; bowel sounds are present in all four quadrants. EXTREMITIES: No clubbing, cyanosis, or edema. SKIN: Normal; no rash; no jaundice. 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 (Mary Escobar [facility]) Assessment and Plan Plan Assessment: - Dysphagia- states for the past week, with both solids and liquids. History of dysphagia, states worse when BGL elevated. Associated acid reflux, heartburn, epigastric pain, nausea, and vomiting. Denies hematemesis and coffee ground emesis. Takes Protonix at home which normally controls symptoms. Last EGD (November 2016) --> Severe esophagitis, gastritis. - Weight loss- Reports 250 lbs in June currently 185 lbs. Likely multifactorial given significant medical problems and noncompliance as well as his leaving him in June. 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 Has not had colonoscopy since thenct - DKA- Stopped taking all medications including insulin for 3-4 days prior to coming to the hospital - [facility]- ? electrolyte imbalance- phosphorus and potassium replacement 11/09/17 s/p MBS showed laryngeal penetration and aspiration. Per SALES PROCESS MANAGER pharygeal dysphagia no aspiration seen adn improvements seen with chin tuck. SALES PROCESS MANAGER requested official consult for dysphagia. pt with diffuse abd TTP Plan: - reg diet and thin liquids per SALES PROCESS MANAGER EGD/colonoscopy Sunday Clear liquids Sunday Magnesium Citrate prep NPO after MN Sunday Hold Plavix Protonix Further recommendations based on clinical course and results of above Pt has been seen and examined by myself and Dr. Lawler and this note is written on his behalf (Mary Escobar) Physician Comments As above, EGD and Colonoscopy sunday. (Miguel Angel Lawler MD) Mary Escobar Nov 09, 2017 14:21 Miguel Angel Lawler MD Nov 09, 2017 14:52
[2017-11-09] MEDS ORDERED: POTASSIUM PHOSPHATE INJ 15 MMOL in SODIUM CHLORIDE 0.9% INJ 150 ML IV ONE (16:00)
[2017-11-09] MEDS: ENOXAPARIN SODIUM 40 MG/0.4 ML SYRINGE SQ SCH (18:02)
--- NOTE | 2017-11-09 23:39 | HHI.PR ---
Subjective Remarks Patient seen this morning. Says he is feeling all right. Continues to complain of dysphagia. Denies any chest pain or shortness of breath. Objective Vital Signs Date Time Temp Pulse Resp B/P (MAP) Pulse Ox O2 Delivery O2 Flow Rate FiO2 11/09/17 21:42 98.7 77 17 124/72 (89) 98 11/09/17 16:00 87 11/09/17 16:00 98.5 87 34 127/73 (91) 86 11/09/17 15:00 81 13 126/58 (80) 97 11/09/17 14:00 90 11/09/17 14:00 90 20 127/57 (80) 98 11/09/17 13:00 100 11/09/17 13:00 100 23 148/70 (96) 98 11/09/17 12:00 80 11/09/17 12:00 98.6 80 16 144/61 (88) 99 11/09/17 10:00 97 11/09/17 09:00 88 11/09/17 09:00 88 15 99 11/09/17 08:00 98.4 80 26 163/75 (104) 98 11/09/17 08:00 80 11/09/17 07:00 73 13 156/72 (100) 100 11/09/17 07:00 73 11/09/17 06:00 79 11/09/17 04:00 69 11/09/17 04:00 98.9 69 14 118/58 (78) 99 11/09/17 02:00 74 11/09/17 00:00 69 11/09/17 00:00 98.7 69 12 127/66 (86) 96 I/O 11/09/17 11/09/17 11/09/17 11/10/17 11/10/17 11/10/17 07:00 15:00 23:00 07:00 15:00 23:00 Intake Total 480 ml Output Total 1100 ml Balance -620 ml Intake Oral 480 ml Output Urine Total 1100 ml # Voids 1 Result Diagram: 11/09/1783211/09/17832 Objective Remarks GENERAL: patient sitting up in bed. Appears comfortable. SKIN: Warm and dry. HEAD: Normocephalic. EYES: No scleral icterus. No injection or drainage. NECK: Supple, trachea midline. No JVD. CARDIOVASCULAR: Regular rate and rhythm without murmurs, gallops, or rubs. RESPIRATORY: Breath sounds equal bilaterally. No accessory muscle use. GASTROINTESTINAL: Abdomen soft, non-tender, nondistended. MUSCULOSKELETAL: No cyanosis, or edema. BACK: Nontender without obvious deformity. No CVA tenderness. A/P Assessment and Plan ======11/09========= Dysphagia Speech therapy recommends continued regular diet. GI planning for EGD and colonoscopy on Sunday. Hypophosphatemia. 1.8. Replace. =- Diabetic ketoacidosis due to noncompliance with medications and not taking insulin and not following diabetic diet will place on insulin drip. Continue on fluids. We will place on potassium and magnesium and phosphorus protocols IMPROVED OFF DRIP PLACE ON MEDIUM DOSE SLIDING SCALE LEVEMIR 15 UNITS SUBQ BID DW RN AND PT SUGARS ARE BETTER TODAY Hypertension resume home medications Coronary artery disease continue on Plavix Hyponatremia continue on fluids BPH resume home medications Restless leg continue on his ropinirole Depression and anxiety continue on his Lexapro peripheral neuropathy continue on gabapentin Malignant medical noncompliance recommend that patient actually take his medication Coronary artery disease with history of CABG 4 and up to 15 cardiac stents Dehydration and hyponatremia due to DKA Acute kidney injury will continue on rehydration monitor in the ICU on insulin drip HYPOKALEMIA REPLACE HYPOPHOSPHATEMIA REPLACE DYSPHAGIA CONSULT GI- STATES FOOD GETS STUCK IN ESOPHAGUS Discharge Planning EGD and colonoscopy on Sunday PT recommends rehabilitation Diego Matos MD Nov 09, 2017 23:39
[2017-11-10] VITALS: BP 152/81; PULSE 75; RESP 18; TEMP 98.3; O2SAT 99
[2017-11-10 04:00] VITALS: BP 144/86; PULSE 86; RESP 18; TEMP 98; O2SAT 98
[2017-11-10] MEDS: CHLORHEXIDINE GLUCONATE 2 % 1 PACK (2 CLOTHS) TOP SCH (04:00)
[2017-11-10] MEDS: MECLIZINE HCL 25 MG TAB PO SCH ×3 (05:46→21:33)
[2017-11-10] MEDS: PANTOPRAZOLE SOD 40 MG DELAYED RELEASE TAB PO SCH ×2 (08:22→21:33)
[2017-11-10] MEDS: GABAPENTIN 100 MG CAP PO SCH ×3 (08:23→16:40)
[2017-11-10] MEDS: TAMSULOSIN HCL 0.4 MG CAP PO SCH (08:23)
[2017-11-10] MEDS: INSULIN ASPART SUPPLEMENTAL SCALE SQ SCH ×4 (08:23→21:35)
[2017-11-10] MEDS: FINASTERIDE 5 MG TAB PO SCH (08:23)
[2017-11-10] MEDS: ESCITALOPRAM OXALATE 20 MG TAB PO SCH (08:23)
[2017-11-10] MEDS: DOCUSATE SODIUM 50 MG/SENNA 8.6 MG TAB PO SCH ×2 (08:23→21:00)
[2017-11-10] MEDS: SODIUM CHLORIDE 0.9% FLUSH 10 ML FLUSH IV FLUSH SCH ×2 (08:23→22:47)
[2017-11-10] MEDS: INSULIN DETEMIR 100 UNITS/ML VIAL SQ SCH ×2 (08:24→21:34)
[2017-11-10] MEDS ORDERED: POTASSIUM PHOSPHATE/SODIUM PHOSPHATE 250 MG TAB PO ONE (08:45)
[2017-11-10 08:53] VITALS: BP 136/74; PULSE 82; RESP 18; TEMP 97.6; O2SAT 99
[2017-11-10 12:07] VITALS: BP 96/72; PULSE 91; RESP 18; TEMP 98.5; O2SAT 98
[2017-11-10 16:22] VITALS: BP_SYST 122; BP_SYST 144; BP_DIAS 67; BP_DIAS 78; PULSE 68; PULSE 79; RESP 18; TEMP 98.3; TEMP 98.5; O2SAT 97
[2017-11-10] MEDS: ENOXAPARIN SODIUM 40 MG/0.4 ML SYRINGE SQ SCH (16:40)
[2017-11-10] MEDS: ONDANSETRON HCL 4 MG/2 ML VIAL IVP PRN (16:41)
[2017-11-10] MEDS ORDERED: IOHEXOL 350 MG/ML 10 ML VIAL (for RAD DIAG) IVCONTRAST ONE (19:41)
--- NOTE | 2017-11-10 19:56 | RADRPT ---
EXAM DATE/TIME: 11/10/2017 19:30 [facility] COMPARISON: No previous studies available for comparison. INDICATIONS : Unexplained weight loss. IV CONTRAST: 95 cc Omnipaque 350 (iohexol) IV ORAL CONTRAST: Prescribed oral contrast ingested. RADIATION DOSE: 19.34 CTDIvol (mGy) MEDICAL HISTORY : Cardiovascular disease. Hypertension. Renal calculi.Colon ca SURGICAL HISTORY : CABG Colon resection. ENCOUNTER: Initial ACUITY: 1 day PAIN SCALE: 0/10 LOCATION: abdomen TECHNIQUE: Volumetric scanning of the abdomen and pelvis was performed. Using automated exposure control and ad justment of the mA and/or kV according to patient size, radiation dose was kept as low as reasonably achievable to obtain optimal diagnostic quality images. DICOM format image data is available electro nically for review and comparison. FINDINGS: The limited portion of the lung base visualized is clear. The appearance of the liver adrenal glands and spleen is within normal limits. There are calcifications diffusely throughout the pancreas. The pancreas is atrophic. There is a cyst ic area in the tail of the pancreas measuring 2.3 x 1.2 cm. Findings would be most suggestive of prev ious episodes of pancreatitis. At some point, post contrast MR imaging of the pancreas would be of be nefit to further assess the cystic area seen within the tail of the pancreas. This is incompletely ch aracterized. There is advanced hydronephrosis and hydroureter bilaterally. These can be followed down to the [facility]. The bladder is distended. The lower pelvis is predominantly obscured secondary to the patient's r ight hip arthroplasty. The abdominal aorta is normal in caliber. There is no retroperitoneal adenopathy. No free air or free fluid is identified. There is residual barium contrast within the colon. There is no free fluid within the pelvis. Again the bladder is quite distended. There is a small left inguinal hernia. The prostate appears mildly enlarged but is not well visualized secondary to artifa ct from the patient's hip arthroplasty. The visualized bony structures demonstrate degenerative changes throughout the lumbar spine. There is an old, healed fracture of the right posterior 11th rib. No destructive lesion is seen. CONCLUSION: 1. There is moderate hydronephrosis and hydroureter. The bladder is quite distended. The exam would s uggest some degree of bladder outlet obstruction. 2. Small left inguinal hernia. There is some fat herniated through the defect. 3. Calcifications throughout the pancreas suggesting previous pancreatitis. The pancreas is atrophic. 4. 2.3 x 1.2 cm cystic area in the tail of the pancreas incompletely characterized by this examinatio n. 5. No free air or free fluid identified. Cyril Stephens MD on November 10, 2017 at 19:48 Board Certified Radiologist. This report was verified electronically.
--- NOTE | 2017-11-10 21:43 | HHI.PR ---
Subjective Remarks patient seen this morning. Since he is feeling well. Denies any chest pain or shortness of breath. Objective Vital Signs Date Time Temp Pulse Resp B/P (MAP) Pulse Ox O2 Delivery O2 Flow Rate FiO2 11/10/17 16:22 98.3 79 18 144/78 (100) 97 11/10/17 12:07 98.5 91 18 96/72 (80) 98 11/10/17 08:53 97.6 82 18 136/74 (94) 99 11/10/17 04:00 98.0 86 18 144/86 (105) 98 11/10/17 00:00 98.3 75 18 152/81 (104) 99 11/09/17 21:42 98.7 77 17 124/72 (89) 98 I/O 11/09/17 11/09/17 11/09/17 11/10/17 11/10/17 11/10/17 07:00 15:00 23:00 07:00 15:00 23:00 Intake Total 480 ml 480 ml Output Total 1100 ml Balance -620 ml 480 ml Intake Oral 480 ml 480 ml Output Urine Total 1100 ml # Voids 1 1 5 # Bowel Movements 3 2 Result Diagram: 11/09/17 0833 11/09/17 0833 Objective Remarks GENERAL: patient sitting up in bed. Appears comfortable.no change on exam. SKIN: Warm and dry. HEAD: Normocephalic. EYES: No scleral icterus. No injection or drainage. NECK: Supple, trachea midline. No JVD. CARDIOVASCULAR: Regular rate and rhythm without murmurs, gallops, or rubs. RESPIRATORY: Breath sounds equal bilaterally. No accessory muscle use. GASTROINTESTINAL: Abdomen soft, non-tender, nondistended. MUSCULOSKELETAL: No cyanosis, or edema. BACK: Nontender without obvious deformity. No CVA tenderness. A/P Assessment and Plan ======11/10========= Dysphagia Speech therapy recommends continued regular diet. GI planning for EGD and colonoscopy on Sunday. Hypophosphatemia. recheck tomorrow. =- Diabetic ketoacidosis due to noncompliance with medications and not taking insulin and not following diabetic diet will place on insulin drip. Continue on fluids. We will place on potassium and magnesium and phosphorus protocols IMPROVED OFF DRIP PLACE ON MEDIUM DOSE SLIDING SCALE LEVEMIR 15 UNITS SUBQ BID DW RN AND PT SUGARS ARE BETTER TODAY Hypertension resume home medications Coronary artery disease continue on Plavix Hyponatremia continue on fluids BPH resume home medications Restless leg continue on his ropinirole Depression and anxiety continue on his Lexapro peripheral neuropathy continue on gabapentin Malignant medical noncompliance recommend that patient actually take his medication Coronary artery disease with history of CABG 4 and up to 15 cardiac stents Dehydration and hyponatremia due to DKA Acute kidney injury will continue on rehydration monitor in the ICU on insulin drip HYPOKALEMIA REPLACE HYPOPHOSPHATEMIA REPLACE DYSPHAGIA CONSULT GI- STATES FOOD GETS STUCK IN ESOPHAGUS Discharge Planning EGD and colonoscopy on Sunday PT recommends rehabilitation Diego Matos MD Nov 10, 2017 21:43
[2017-11-11] MEDS: CHLORHEXIDINE GLUCONATE 2 % 1 PACK (2 CLOTHS) TOP SCH (04:00)
[2017-11-11] MEDS: MECLIZINE HCL 25 MG TAB PO SCH ×3 (05:32→21:01)
[2017-11-11 06:11] VITALS: BP 156/81; PULSE 79; RESP 18; TEMP 98.9; O2SAT 100
[2017-11-11 06:19] LABS: AUTOMATED NEUTROPHIL # 3.1 TH/MM3 (1.8-7.7); BASOPHIL % 0.7 % (0.0-2.0); EOSINOPHIL # 0.1 TH/MM3 (0-0.4); EOSINOPHIL % 1.5 % (0.0-4.0); HEMATOCRIT 37.3 % (39.0-51.0); HEMOGLOBIN 12.8 GM/DL (13.0-17.0); LYMPHOCYTE # 1.4 TH/MM3 (1.0-4.8); MEAN CELL VOLUME 86.4 FL (80.0-100.0); MEAN CORPUSCULAR HEMOGLOBIN 29.6 PG (27.0-34.0); MEAN CORPUSCULAR HGB CONC 34.3 % (32.0-36.0); MEAN PLATELET VOLUME 9.2 FL (7.0-11.0); MONO % 7.4 % (0.0-8.0); MONOCYTE # 0.4 TH/MM3 (0-0.9); NEUT % 62.4 % (16.0-70.0); PLATELET COUNT 189 TH/MM3 (150-450); RED BLOOD COUNT 4.32 MIL/MM3 (4.50-5.90); RED CELL DISTRIBUTION WIDTH 13.9 % (11.6-17.2)
[2017-11-11 06:36] LABS: ALBUMIN 2.7 GM/DL (3.4-5.0); BICARBONATE 24.5 MEQ/L (21.0-32.0); CALCIUM 8.6 MG/DL (8.5-10.1); CREATININE 0.67 MG/DL (0.60-1.30); MAGNESIUM 1.7 MG/DL (1.5-2.5); PHOSPHORUS 2.8 MG/DL (2.5-4.9)
[2017-11-11] MEDS: TAMSULOSIN HCL 0.4 MG CAP PO SCH (07:51)
[2017-11-11] MEDS: PANTOPRAZOLE SOD 40 MG DELAYED RELEASE TAB PO SCH ×2 (07:51→21:01)
[2017-11-11] MEDS: GABAPENTIN 100 MG CAP PO SCH ×3 (07:51→17:06)
[2017-11-11] MEDS: FINASTERIDE 5 MG TAB PO SCH (07:52)
[2017-11-11] MEDS: SODIUM CHLORIDE 0.9% FLUSH 10 ML FLUSH IV FLUSH SCH ×2 (07:52→21:00)
[2017-11-11] MEDS: DOCUSATE SODIUM 50 MG/SENNA 8.6 MG TAB PO SCH ×2 (07:52→21:01)
[2017-11-11] MEDS: ESCITALOPRAM OXALATE 20 MG TAB PO SCH (07:52)
[2017-11-11] MEDS: INSULIN ASPART SUPPLEMENTAL SCALE SQ SCH ×4 (07:53→21:00)
[2017-11-11] MEDS: INSULIN DETEMIR 100 UNITS/ML VIAL SQ SCH ×2 (07:54→22:03)
[2017-11-11 08:34] VITALS: BP 143/83; PULSE 73; RESP 18; TEMP 98.3; O2SAT 100
[2017-11-11 12:21] VITALS: BP 122/64; PULSE 66; RESP 18; TEMP 98.6; O2SAT 100
--- NOTE | 2017-11-11 12:42 | HHI.GIFU ---
Subjective Remarks Pt OOB to chair. must use chin tuck in order to be able to swallows. c/o mild diffuse abd pain. (Mary Escobar) Objective Vitals I&O Vital Signs Date Time Temp Pulse Resp B/P (MAP) Pulse Ox O2 Delivery O2 Flow Rate FiO2 11/11/17 12:21 98.6 66 18 122/64 (83) 100 11/11/17 08:34 98.3 73 18 143/83 (103) 100 11/11/17 06:11 98.9 79 18 156/81 (106) 100 11/10/17 16:22 98.3 79 18 144/78 (100) 97 I/O 11/10/17 11/10/17 11/10/17 11/11/17 11/11/17 11/11/17 07:00 15:00 23:00 07:00 15:00 23:00 Intake Total 480 ml Balance 480 ml Intake Oral 480 ml # Voids 1 5 # Bowel Movements 3 2 Laboratory Laboratory Tests Test 11/11/17 05:30 White Blood Count 5.0 Red Blood Count 4.32 Hemoglobin 12.8 Hematocrit 37.3 Mean Corpuscular Volume 86.4 Mean Corpuscular Hemoglobin 29.6 Mean Corpuscular Hemoglobin Concent 34.3 Red Cell Distribution Width 13.9 Platelet Count 189 Mean Platelet Volume 9.2 Neutrophils (%) (Auto) 62.4 Lymphocytes (%) (Auto) 28.0 Monocytes (%) (Auto) 7.4 Eosinophils (%) (Auto) 1.5 Basophils (%) (Auto) 0.7 Neutrophils # (Auto) 3.1 Lymphocytes # (Auto) 1.4 Monocytes # (Auto) 0.4 Eosinophils # (Auto) 0.1 Basophils # (Auto) 0.0 CBC Comment DIFF FINAL Differential Comment Blood Urea Nitrogen 13 Creatinine 0.67 Random Glucose 251 Albumin 2.7 Calcium Level 8.6 Phosphorus Level 2.8 Magnesium Level 1.7 Sodium Level 135 Potassium Level 4.2 Chloride Level 102 Carbon Dioxide Level 24.5 Anion Gap 9 Estimat Glomerular Filtration Rate 119 Imaging Last Impressions Modified Barium Swallow 11/09/17 0000 Signed Impressions: Service Date/Time: Thursday, November 09, 2017 00:00 - CONCLUSION: 1. Laryngeal penetration and aspiration. See speech pathology report. Gabriele Zheng MD Abdomen/Pelvis CT 11/08/17 0000 Signed Impressions: Service Date/Time: Friday, November 10, 2017 19:30 - CONCLUSION: 1. There is moderate hydronephrosis and hydroureter. The bladder is quite distended. The exam would suggest some degree of bladder outlet obstruction. 2. Small left inguinal hernia. There is some fat herniated through the defect. 3. Calcifications throughout the pancreas suggesting previous pancreatitis. The pancreas is atrophic. 4. 2.3 x 1.2 cm cystic area in the tail of the pancreas incompletely characterized by this examination. 5. No free air or free fluid identified. Cyril Stephens MD Physical Exam HEENT: PERRL; normocephalic; atraumatic; no jaundice. CHEST: CTA CARDIAC: RRR ABDOMEN: Soft, nondistended, diffusely TTP; no hepatosplenomegaly; bowel sounds are present in all four quadrants. EXTREMITIES: No clubbing, cyanosis, or edema. SKIN: Normal; no rash; no jaundice. BLINDSTITCH LAPEL PADDER: No focal deficits; alert and oriented times three. (Mary Escobar [facility]) Assessment and Plan Plan Assessment: - Dysphagia- states for the past week, with both solids and liquids. History of dysphagia, states worse when BGL elevated. Associated acid reflux, heartburn, epigastric pain, nausea, and vomiting. Denies hematemesis and coffee ground emesis. Takes Protonix at home which normally controls symptoms. Last EGD (November 2016) --> Severe esophagitis, gastritis. - Weight loss- Reports 250 lbs in June currently 185 lbs. Likely multifactorial given significant medical problems and noncompliance as well as his leaving him in June. 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 Has not had colonoscopy since thenct - DKA- Stopped taking all medications including insulin for 3-4 days prior to coming to the hospital - [facility]- ? electrolyte imbalance- phosphorus and potassium replacement 11/09/17 s/p MBS showed laryngeal penetration and aspiration. Per ANALYTICS SENIOR MANAGER pharygeal dysphagia no aspiration seen adn improvements seen with chin tuck. ANALYTICS SENIOR MANAGER requested official consult for dysphagia. pt with diffuse abd TTP 11/11/17 continued mild diffuse TTP abd. using chin tuck to swallow. eager for endoscopic eval. Plan: reg diet and thin liquids per ANALYTICS SENIOR MANAGER EGD/colonoscopy tomorrow Clear liquids today Magnesium Citrate prep NPO after MN tonight Hold Plavix Protonix Further recommendations based on clinical course and results of above Pt has been seen and examined by myself and Dr. Lawler and this note is written on his behalf (Mary Escobar) Physician Comments For EGD and Colonoscopy in AM, Plavix held for 5 days. Further recommendations to follow. (Miguel Angel Lawler MD) Mary Escobar Nov 11, 2017 12:42 Miguel Angel Lawler MD Nov 11, 2017 13:19
[2017-11-11] MEDS: ENOXAPARIN SODIUM 40 MG/0.4 ML SYRINGE SQ SCH (15:06)
[2017-11-11] MEDS ORDERED: MAGNESIUM CITRATE SOLN 300 ML BTL PO ONE ×2 (16:00→18:00)
[2017-11-11 16:11] VITALS: BP 134/75; PULSE 80; RESP 18; TEMP 98.1; O2SAT 100
[2017-11-11 20:06] VITALS: BP 102/59; PULSE 76; RESP 17; TEMP 98.5; O2SAT 95
--- NOTE | 2017-11-11 23:44 | HHI.PR ---
Subjective Remarks patient seen this morningaround 10 AM. Says he is feeling all right. Denies any chest pain or shortness of breath. Reports some slight diffuse abdominal pain. Objective Vital Signs Date Time Temp Pulse Resp B/P (MAP) Pulse Ox O2 Delivery O2 Flow Rate FiO2 11/11/17 20:06 98.5 76 17 102/59 (73) 95 11/11/17 16:11 98.1 80 18 134/75 (94) 100 11/11/17 12:21 98.6 66 18 122/64 (83) 100 11/11/17 08:34 98.3 73 18 143/83 (103) 100 11/11/17 06:11 98.9 79 18 156/81 (106) 100 I/O 11/11/17 11/11/17 11/11/17 11/12/17 11/12/17 11/12/17 07:00 15:00 23:00 07:00 15:00 23:00 Intake Total 480 ml Output Total 3 ml Balance 477 ml Intake Oral 480 ml Output Urine Total 3 ml # Bowel Movements 2 Result Diagram: 11/11/17 0530 11/11/17 0530 Objective Remarks GENERAL: patient sitting up in bed. Appears comfortable.again,no change on exam. SKIN: Warm and dry. HEAD: Normocephalic. EYES: No scleral icterus. No injection or drainage. NECK: Supple, trachea midline. No JVD. CARDIOVASCULAR: Regular rate and rhythm without murmurs, gallops, or rubs. RESPIRATORY: Breath sounds equal bilaterally. No accessory muscle use. GASTROINTESTINAL: Abdomen soft, non-tender, nondistended. MUSCULOSKELETAL: No cyanosis, or edema. BACK: Nontender without obvious deformity. No CVA tenderness. A/P Assessment and Plan ======11/11========= Dysphagia Speech therapy recommends continued regular diet. GI planning for EGD and colonoscopy tomorrow Hypophosphatemia. resolved after placement =- Diabetic ketoacidosis due to noncompliance with medications and not taking insulin and not following diabetic diet will place on insulin drip. Continue on fluids. We will place on potassium and magnesium and phosphorus protocols IMPROVED OFF DRIP PLACE ON MEDIUM DOSE SLIDING SCALE LEVEMIR 15 UNITS SUBQ BID DW RN AND PT SUGARS ARE BETTER TODAY Hypertension resume home medications Coronary artery disease continue on Plavix Hyponatremia continue on fluids BPH resume home medications Restless leg continue on his ropinirole Depression and anxiety continue on his Lexapro peripheral neuropathy continue on gabapentin Malignant medical noncompliance recommend that patient actually take his medication Coronary artery disease with history of CABG 4 and up to 15 cardiac stents Dehydration and hyponatremia due to DKA Acute kidney injury will continue on rehydration monitor in the ICU on insulin drip HYPOKALEMIA REPLACE HYPOPHOSPHATEMIA REPLACE DYSPHAGIA CONSULT GI- STATES FOOD GETS STUCK IN ESOPHAGUS Discharge Planning EGD and colonoscopy on Sunday PT recommends rehabilitation Diego Matos MD Nov 11, 2017 23:44
[2017-11-12] MEDS: CHLORHEXIDINE GLUCONATE 2 % 1 PACK (2 CLOTHS) TOP SCH (04:00)
[2017-11-12] MEDS ORDERED: SODIUM CHLORID 0.9% 500 ML IV PRN (04:30)
[2017-11-12] MEDS ORDERED: CHLORHEXIDINE GLUCONATE 2 % 1 PACK (2 CLOTHS) TOPICAL PRN (04:30)
[2017-11-12] MEDS ORDERED: METOPROLOL TARTRATE 25 MG TAB PO PRN (04:30)
[2017-11-12] MEDS ORDERED: LACTATED RINGER'S 1000 ML IV PRN (04:30)
[2017-11-12] MEDS ORDERED: POVIDONE IODINE 5% (ANTISEPSIS KIT) 4 APPLICATIONS EACH NARE PRN (04:30)
[2017-11-12 04:32] VITALS: BP 110/60; PULSE 72; RESP 17; TEMP 98; O2SAT 94
[2017-11-12] MEDS: MECLIZINE HCL 25 MG TAB PO SCH ×3 (04:58→21:14)
[2017-11-12] MEDS: INSULIN ASPART SUPPLEMENTAL SCALE SQ SCH ×4 (07:39→21:20)
[2017-11-12] MEDS: DOCUSATE SODIUM 50 MG/SENNA 8.6 MG TAB PO SCH ×2 (07:39→21:14)
[2017-11-12] MEDS: SODIUM CHLORIDE 0.9% FLUSH 10 ML FLUSH IV FLUSH SCH ×2 (07:43→21:17)
[2017-11-12] MEDS: FINASTERIDE 5 MG TAB PO SCH (07:43)
[2017-11-12] MEDS: PANTOPRAZOLE SOD 40 MG DELAYED RELEASE TAB PO SCH ×2 (07:43→21:14)
[2017-11-12] MEDS: ESCITALOPRAM OXALATE 20 MG TAB PO SCH (07:43)
[2017-11-12] MEDS: TAMSULOSIN HCL 0.4 MG CAP PO SCH (07:43)
[2017-11-12] MEDS: GABAPENTIN 100 MG CAP PO SCH ×3 (07:43→17:13)
[2017-11-12] MEDS: INSULIN DETEMIR 100 UNITS/ML VIAL SQ SCH ×2 (07:47→21:20)
[2017-11-12 08:00] VITALS: BP 147/75; PULSE 69; RESP 19; TEMP 97.9; O2SAT 100
--- NOTE | 2017-11-12 10:36 | GIPROC ---
[facility] [address] [facility]. [facility], [address] EGD WITH DILATION PROCEDURE REPORT EXAM DATE: 11/12/2017 PATIENT NAME: Ankush Keene MR#: [id number] BIRTHDATE: 1950 ATTENDING: Lolly Austin MD ORDER #: [id number] TRAPPER ANIMAL: Norma Sierra and Kirstin Cross STATUS: inpatient INDICATIONS: The patient is a 66 yr old male here for an EGD with dilation due to dysphagia, weight loss, abdominal pain PROCEDURE PERFORMED: EGD w/ biopsy EGD w/ dilation of esophagus via guidewire MEDICATIONS: None and Per Anesthesia. TOPICAL ANESTHETIC: none CONSENT: The patient understands the risks and benefits of the procedure and understands that these risks include, but are not limited to: sedation, allergic reaction, infection, perforation and/or bleeding. Alternative means of evaluation and treatment include, among others: physical exam, x-rays, and/or surgical intervention. The patient elects to proceed with this endoscopic procedure. medical equipment was checked for proper function. Hand hygiene and appropriate measures for infection prevention was taken. After the risks, benefits and alternatives of the procedure were thoroughly explained, Informed consent was verified, confirmed and timeout was successfully executed by the treatment team. The patient was anesthetized with topical anesthesia and the EC-3490Li (Pedi C) endoscope was introduced through the mouth and advanced to the second portion of the duodenum. The instrument was slowly withdrawn as the mucosa was fully examined. Gastritis antrum-biopsy esophagitis grade B-biopsy nodular mucosa duodenal bulb-biopsy duodenitis second portion-biopsy stricture distal esophagus. Dilation was performed at gastroesophageal junction. DILATOR: SIZE(S): RESISTANCE: HEME: APPEARANCE: Dilator: Savary over guidewire Size(s): 17 COMMENT: Retroflexed views revealed a hiatal hernia ADVERSE EVENTS: There were no complications. IMPRESSIONS: 1. Gastritis antrum-biopsy esophagitis grade B nodular mucosa duodenal bulb-biopsy duodenitis second portion-biopsy stricture distal esophagus 2. Retroflexed views revealed a hiatal hernia RECOMMENDATIONS: 1. Await biopsy results. Biopsy results will not be ready for 7-10 days. If you don't hear from us in two weeks, call our office for biopsy results. 2. Anti-reflux regimen 3. Continue PPI 4. Start PPI 5. Start creon with meals and snacks mrcp ca 19-9 if mrcp negative will need eus op REPEAT EXAM: Return 1 year EGD Lolly Austin MD eSigned: Lolly Austin MD 11/12/2017 10:36 AM cc: PATIENT NAME: Ankush Keene MR#: [id number]
--- NOTE | 2017-11-12 10:39 | GIPROC ---
[facility] [address] [facility]. [facility], [address] COLONOSCOPY PROCEDURE REPORT EXAM DATE: 11/12/2017 PATIENT NAME: Ankush Keene MR #: [id number] BIRTHDATE: 1950 ENDOSCOPIST: Lolly Austin MD ORDER #: [id number] SHEETROCK APPLICATOR: Norma Sierra and Kirstin Cross STATUS: inpatient INDICATIONS: The patient is a 66 yr old male here for a colonoscopy due to weight loss, abdominal pain, history of large polyps/p hemicolectomy PROCEDURE PERFORMED: Colonoscopy, diagnostic MEDICATIONS: None and Per Anesthesia. PREP QUALITY: 30 % obscured PREP TYPE:Other: ESTIMATED BLOOD LOSS: None CONSENT: The patient understands the risks and benefits of the procedure and understands that these risks include, but are not limited to: sedation, allergic reaction, infection, perforation and/or bleeding. Alternative means of evaluation and treatment include, among others: physical exam, x-rays, and/or surgical intervention. The patient elects to proceed with this endoscopic procedure. medical equipment was checked for proper function. Hand hygiene and appropriate measures for infection prevention was taken. After the risks, benefits and alternatives of the procedure were thoroughly explained, Informed consent was verified, confirmed and timeout was successfully executed by the treatment team. A digital exam revealed external hemorrhoids The Pentax EC-3490Li endoscope was introduced through the anus and advanced to the cecum, which was identified by both the appendix and ileocecal valve. The instrument was then slowly withdrawn as the colon was fully examined. COLON FINDINGS: Diverticulosis sigmoid, descending surgical changes ascending colon por prep-no gross lesions. Retroflexed views revealed internal hemorrhoids and Retroflexed views revealed small internal hemorrhoids The scope was then completely withdrawn from the patient and the procedure terminated. PROCEDURE WITHDRAWAL TIME:6minutes ADVERSE EVENTS: There were no complications. IMPRESSIONS: 1. Diverticulosis sigmoid, descending surgical changes ascending colon por prep-no gross lesions 2. Retroflexed views revealed internal hemorrhoids 3. Retroflexed views revealed small internal hemorrhoids 4. Revealed external hemorrhoids RECOMMENDATIONS: 1. Benefiber 2 tsp daily 2. Continue surveillance 3. High fiber diet 4. Consider urology consult-medical team to decide if indicated or not RECALL: Return 1 year Colonoscopy Lolly Austin MD eSigned: Lolly Austin MD 11/12/2017 10:39 AM cc:
[2017-11-12 12:00] VITALS: BP 140/77; RESP 19; TEMP 97.6; O2SAT 99
[2017-11-12] MEDS ORDERED: PHENYLEPH/NS 1000 MCG/10 ML SYR IV ONE (12:00)
[2017-11-12] MEDS ORDERED: LIDOCAINE HCL 1% PF 5 ML SYRINGE OTHER ONE (12:00)
[2017-11-12] MEDS ORDERED: PROPOFOL 200 MG/20 ML AMP IV ONE (12:00)
[2017-11-12] MEDS ORDERED: DO NOT ADM ANY ANTICOAGULANT DRUGS PRN (12:15)
[2017-11-12] MEDS: LIPASE/PROTEASE/AMYLASE (12,000/38,000/60,000) CAP PO SCH ×2 (12:28→17:13)
--- NOTE | 2017-11-12 14:36 | HHI.FF ---
Face to Face Verification Diagnosis: (1) Generalized weakness Physical Therapy Order: Evaluate and Treat Home Health Nursing Order: Nursing assessment with vital signs Instructions: Home health nurse for medication management Carpentry Supervisor Order: To Provide: Long range planning I have seen patient Ankush Keene, III on 11/12/17. My clinical findings support the need for the requested home health care services because: Med compliance is questionable Limited ability to care for self I certify that my clinical findings support that this patient is homebound because: Unsafe to leave home unassisted Diego Matos MD Nov 12, 2017 14:36
[2017-11-12] MEDS ORDERED: WALKER WHEELS/F1 MIS (14:37)
--- NOTE | 2017-11-12 14:45 | HHI.PR ---
Subjective Remarks Patient seen this morning around 10 AM after colonoscopy. Says he is feeling all right. Denies any nausea or vomiting. Objective Vital Signs Date Time Temp Pulse Resp B/P (MAP) Pulse Ox O2 Delivery O2 Flow Rate FiO2 11/12/17 10:37 97.1 78 20 82/58 (66) 98 11/12/17 08:00 97.9 69 19 147/75 (99) 100 11/12/17 04:32 98.0 72 17 110/60 (77) 94 11/11/17 20:06 98.5 76 17 102/59 (73) 95 11/11/17 16:11 98.1 80 18 134/75 (94) 100 I/O 11/11/17 11/11/17 11/11/17 11/12/17 11/12/17 11/12/17 06:59 14:59 22:59 06:59 14:59 22:59 Intake Total 480 ml 600 ml Output Total 3 ml Balance 477 ml 600 ml Intake Oral 480 ml Other 600 ml Output Urine Total 3 ml # Bowel Movements 2 2 Result Diagram: 11/11/17 0530 11/11/17 0530 Objective Remarks GENERAL: patient sitting up in chair. Appears comfortable.no change on exam. SKIN: Warm and dry. HEAD: Normocephalic. EYES: No scleral icterus. No injection or drainage. NECK: Supple, trachea midline. No JVD. CARDIOVASCULAR: Regular rate and rhythm without murmurs, gallops, or rubs. RESPIRATORY: Breath sounds equal bilaterally. No accessory muscle use. GASTROINTESTINAL: Abdomen soft, non-tender, nondistended. MUSCULOSKELETAL: No cyanosis, or edema. BACK: Nontender without obvious deformity. No CVA tenderness. A/P Assessment and Plan ======11/12========= /Dysphagia //Pancreatic calcifications MRCP pending. Status post EGD and colonoscopy today with results pending. Hypophosphatemia. resolved after placement =- //Diabetic ketoacidosis due to noncompliance with medications and not taking insulin and not following diabetic diet will place on insulin drip. Continue on fluids. We will place on potassium and magnesium and phosphorus protocols IMPROVED OFF DRIP cont ON MEDIUM DOSE SLIDING SCALE LEVEMIR 15 UNITS SUBQ BID DW RN AND PT SUGARS ARE BETTER TODAY //Hypertension cont home medications //Coronary artery disease continue on Plavix //Hyponatremia continue on fluids BPH resume home medications Restless leg continue on his ropinirole Depression and anxiety continue on his Lexapro peripheral neuropathy continue on gabapentin Malignant medical noncompliance recommend that patient actually take his medication //Dehydration and hyponatremia due to DKA //Acute kidney injury will continue on rehydration = Patient tolerating p.o. intake. //HYPOKALEMIA resolved after replacement //HYPOPHOSPHATEMIA resolved after placement //DYSPHAGIA CONSULT GI- STATES FOOD GETS STUCK IN ESOPHAGUS //Calcification on pancreas imaging. = 11/12 status post EGD and colonoscopy. Pending MRCP. Appreciate GI assistance. Discharge Planning MRCP and GI clearance. PT recommends home with home health. Diego Foreman MD Nov 12, 2017 14:45
[2017-11-12 16:00] VITALS: BP 154/71; PULSE 78; RESP 19; O2SAT 96
[2017-11-12] MEDS ORDERED: DEXTROSE 5%-NACL 0.225% INJ 1,000 ML IV SCH (16:00)
[2017-11-12] MEDS: ENOXAPARIN SODIUM 40 MG/0.4 ML SYRINGE SQ SCH (16:31)
[2017-11-12] MEDS ORDERED: CREON12 PO (16:41)
[2017-11-12] MEDS ORDERED: NOVOLOGSS SQ (16:41)
--- NOTE | 2017-11-12 16:45 | HHI.DS ---
Discharge Summary Admission Date Nov 06, 2017 at 14:39 Discharge Date: Nov 12, 2017 Admitting Diagnosis hyperglycemia, noncompliance (1) RADHA (acute kidney injury) ICD Code: N17.9 - Acute kidney failure, unspecified (2) Vertigo ICD Code: R42 - Dizziness and giddiness (3) DKA (diabetic ketoacidoses) ICD Code: E13.10 - Other specified diabetes mellitus with ketoacidosis without coma (4) Diabetes ICD Code: E11.9 - Type 2 diabetes mellitus without complications (5) CAD (coronary artery disease) ICD Code: I25.10 - Atherosclerotic heart disease of [place] coronary artery without angina pectoris Status: Chronic (6) Generalized weakness ICD Code: R53.1 - Weakness (7) Diabetes mellitus with hyperglycemia, with long-term current use of insulin ICD Code: E11.65 - Type 2 diabetes mellitus with hyperglycemia; 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 Says his symptoms started 3 days ago because he ' could not find his meds' and therefore has not taken any medication since then. Patient is a diabetic and is supposed to be insulin. He has not been taking any of his insulin. Presents with persistent nausea and vomiting over the past 3 days and is found to be in DKA. He denies fevers but has felt chills. Last BM this morning which was normal for him. [facility] administered zofran 4mg IV with minimal improvement in symptoms. Says he has 'chest pain' located from his midsternal region to his midabdomen. Described as constant, non radiating and no palliative or provocative factors. Patient has had lots of vomiting. Has had lots of issues with acid indigestion. Has not been taking any of his medications for at least the past 3 days if not longer Patient has blatant medical noncompliance CBC/BMP: 11/11/17 0530 11/11/17 0530 Significant Findings Laboratory Tests Test 11/11/17 05:30 Red Blood Count 4.32 MIL/MM3 (4.50-5.90) Hemoglobin 12.8 GM/DL (13.0-17.0) Hematocrit 37.3 % (39.0-51.0) Random Glucose 251 MG/DL (74-106) Albumin 2.7 GM/DL (3.4-5.0) Sodium Level 135 MEQ/L (136-145) Imaging Last Impressions Modified Barium Swallow 11/09/17 0000 Signed Impressions: Service Date/Time: Thursday, November 09, 2017 00:00 - CONCLUSION: 1. Laryngeal penetration and aspiration. See speech pathology report. Gabriele Zheng MD Abdomen/Pelvis CT 11/08/17 0000 Signed Impressions: Service Date/Time: Friday, November 10, 2017 19:30 - CONCLUSION: 1. There is moderate hydronephrosis and hydroureter. The bladder is quite distended. The exam would suggest some degree of bladder outlet obstruction. 2. Small left inguinal hernia. There is some fat herniated through the defect. 3. Calcifications throughout the pancreas suggesting previous pancreatitis. The pancreas is atrophic. 4. 2.3 x 1.2 cm cystic area in the tail of the pancreas incompletely characterized by this examination. 5. No free air or free fluid identified. Cyril Stephens MD PE at Discharge GENERAL: AWAKE ALERT AND ORIENTED X3 IN NAD SKIN: Warm and dry. HEAD: Atraumatic. Normocephalic. EYES: Pupils equal and round. No scleral icterus. No injection or drainage. EOMI , ENT: No nasal bleeding or discharge. Mucous membranes pink and moist. ORAL MUCOSA MOIST NECK: Trachea midline. No JVD. SUPPLE CARDIOVASCULAR: Regular rate and rhythm. S1, S2 NO S3 OR S4 RESPIRATORY: No accessory muscle use. Clear to auscultation. Breath sounds equal bilaterally. GASTROINTESTINAL: Abdomen soft, non-tender, nondistended. Hepatic and splenic margins not palpable. MUSCULOSKELETAL: Extremities without clubbing, cyanosis, or edema. No obvious deformities. NEUROLOGICAL: Awake and alert. No obvious cranial nerve deficits. Motor grossly within normal limits. 4 out of 5 muscle strength in the arms and legs. Normal speech. PSYCHIATRIC: Appropriate mood and affect; insight and judgment normal. Hospital Course Patient presented with diabetic ketoacidosis gap Of 22. Patient placed on insulin drip with resolution of acidosis. CT abdomen with pancreatic calcifications as above. Patient with nausea and dysphagia initially, however this improved. Modified barium swallow showed laryngeal penetration and aspiration, however this resolved with chin tuck technique which patient was counseled on. Gastroenterology consulted due to dysphasia, as well as pancreatic calcifications. EGD was performed with biopsies pending. Patient's dysphagia improved. for problem based summary from most recent progress note, please see below. ======11/12========= /Dysphagia //Pancreatic calcifications MRCP pending. Status post EGD and colonoscopy today with results pending. Hypophosphatemia. resolved after placement =- //Diabetic ketoacidosis due to noncompliance with medications and not taking insulin and not following diabetic diet will place on insulin drip. Continue on fluids. We will place on potassium and magnesium and phosphorus protocols IMPROVED OFF DRIP cont ON MEDIUM DOSE SLIDING SCALE LEVEMIR 15 UNITS SUBQ BID DW RN AND PT SUGARS ARE BETTER TODAY //Hypertension cont home medications //Coronary artery disease continue on Plavix //Hyponatremia continue on fluids BPH resume home medications Restless leg continue on his ropinirole Depression and anxiety continue on his Lexapro peripheral neuropathy continue on gabapentin Malignant medical noncompliance recommend that patient actually take his medication //Dehydration and hyponatremia due to DKA //Acute kidney injury will continue on rehydration = Patient tolerating p.o. intake. //HYPOKALEMIA resolved after replacement //HYPOPHOSPHATEMIA resolved after placement //DYSPHAGIA CONSULT GI- STATES FOOD GETS STUCK IN ESOPHAGUS //Calcification on pancreas imaging. = 11/12 status post EGD and colonoscopy. Pending MRCP. Appreciate GI assistance. Discharge Planning MRCP and GI clearance. PT recommends home with home health. Walker ordered Pt Condition on Discharge: Good Discharge Disposition: Disch w/ Home Health Serv Discharge Time: > 30 minutes Discharge Instructions DIET: Follow Instructions for: Diabetic Diet Speech Therapy-Diet Recommends: Other Activities you can perform: Regular-No Restrictions Follow up Referrals: Gastroenterology - 1 Week with Miguel Angel Lawler MD PCP Follow-up - 1 Week New Medications: Walker with Front Wheels (Walker with Front Wheels) 1 Mis Mis EA .XX DIRECTED, #1 0 Refills Insulin Aspart Inj (Novolog Inj) 100 Unit/Ml Inj 1 INJECTION SQ ACHS SLIDING SCALE for Blood Sugar Management for 30 Days, INJECTION Pancrelipase (Creon) 12,000-38,000-60,000 Units Cap 1 CAP PO TID for pancreeatic enzymes for 30 Days, CAP Continued Medications: Alfuzosin ER 24 HR (Alfuzosin ER 24 HR) 10 Mg Tab 10 MG PO DAILY for BPH, #30 TAB 0 Refills Clopidogrel (Clopidogrel) 75 Mg Tab 75 MG PO DAILY for Blood Clot Prevention, #30 TAB 0 Refills Escitalopram (Escitalopram) 20 Mg Tab 20 MG PO DAILY for Anxiety, #30 TAB 0 Refills Finasteride (Finasteride) 5 Mg Tab 5 MG PO DAILY for Manage Prostate Problems, #30 TAB 0 Refills Do not crush. Furosemide (Furosemide) 20 Mg Tab 20 MG PO DAILY for Blood Pressure Management, #30 TAB 0 Refills Gabapentin (Gabapentin) 100 Mg Cap 100 MG PO TID for Pain Management, #90 CAP 0 Refills Hydrocodone-Acetaminophen (Hydrocodone-Acetaminophen) 5-325 mg Tab 1 TAB PO Q6H PRN for PAIN, #30 TAB 0 Refills Insulin Glargine Inj (Toujeo Solostar Pen Inj) 300 Unit/Ml Pen 30 UNITS SQ BID for Blood Sugar Management for 30 Days, #7 PEN 0 Refills Meclizine HCl (Meclizine 25) 25 Mg Tab 25 MG PO Q8HR for Vertigo, #90 TAB Metformin (Metformin) 1,000 Mg Tab 1000 MG PO BIDPC for Blood Sugar Management, #60 TAB 0 Refills Pantoprazole (Pantoprazole) 40 Mg Tab 40 MG PO BID for Reflux, #60 TAB 0 Refills Ropinirole (Ropinirole) 0.25 Mg Tab 0.25 MG PO TID for RLS, #90 TAB 0 Refills Discontinued Medications: Ibuprofen (Ibuprofen) 200 Mg Cap 200 MG PO Q6H PRN for PAIN SCALE 1 TO 7, CAP 0 Refills Insulin Aspart Inj (Novolog Inj) 1,000 Unit/10 Ml Vial 5 UNITS SQ TIDAC for Blood Sugar Management, #3 INJECTION Metolazone (Metolazone) 5 Mg Tab 5 MG PO DAILY for Blood Pressure Management, #30 TAB 0 Refills Pioglitazone (Pioglitazone) 45 Mg Tab 45 MG PO DAILY for Blood Sugar Management, #30 TAB 0 Refills Diego Matos MD Nov 12, 2017 16:45
[2017-11-12 20:00] VITALS: BP 109/89; PULSE 82; RESP 16; TEMP 97.3; O2SAT 98
[2017-11-13 00:02] VITALS: BP 102/55; PULSE 77; RESP 14; TEMP 98.8; O2SAT 97
[2017-11-13] MEDS: CHLORHEXIDINE GLUCONATE 2 % 1 PACK (2 CLOTHS) TOP SCH (03:54)
[2017-11-13 04:25] VITALS: BP 142/67; PULSE 81; RESP 17; TEMP 99.1; O2SAT 99
[2017-11-13] MEDS: MECLIZINE HCL 25 MG TAB PO SCH (06:16)
[2017-11-13 07:41] VITALS: BP 168/80; PULSE 82; RESP 20; TEMP 98.9; O2SAT 100
[2017-11-13] MEDS: INSULIN ASPART SUPPLEMENTAL SCALE SQ SCH (08:00)
[2017-11-13] MEDS: INSULIN DETEMIR 100 UNITS/ML VIAL SQ SCH (08:24)
[2017-11-13] MEDS: PANTOPRAZOLE SOD 40 MG DELAYED RELEASE TAB PO SCH (08:41)
[2017-11-13] MEDS: TAMSULOSIN HCL 0.4 MG CAP PO SCH (08:41)
[2017-11-13] MEDS: GABAPENTIN 100 MG CAP PO SCH (08:41)
[2017-11-13] MEDS: SODIUM CHLORIDE 0.9% FLUSH 10 ML FLUSH IV FLUSH SCH (08:42)
[2017-11-13] MEDS: DOCUSATE SODIUM 50 MG/SENNA 8.6 MG TAB PO SCH (08:42)
[2017-11-13] MEDS: ESCITALOPRAM OXALATE 20 MG TAB PO SCH (08:42)
[2017-11-13] MEDS: FINASTERIDE 5 MG TAB PO SCH (08:42)
[2017-11-13] MEDS: LIPASE/PROTEASE/AMYLASE (12,000/38,000/60,000) CAP PO SCH (08:42)
[2017-11-13 10:04] VITALS: O2SAT 100
== END 2017-11-13 10:51 | disposition home health service (06) | DRG 638 ==
LOC: NEPC 10:44 → NEDA 14:39 → HIME 20:25 → N05B 11-09 16:37
PROVIDERS: ADMIT Hospitalist; ATTEND Hospitalist
PROC: 0DB78ZX Excision of Stomach, Pylorus, Via Natural or Artificial Opening Endoscopic, Diagnostic (ICD-10-PCS; 2017-11-12)
PROC: 0DB38ZX Excision of Lower Esophagus, Via Natural or Artificial Opening Endoscopic, Diagnostic (ICD-10-PCS; 2017-11-12)
PROC: 0DJD8ZZ Inspection of Lower Intestinal Tract, Via Natural or Artificial Opening Endoscopic (ICD-10-PCS; 2017-11-12)
PROC: 0D748ZZ Dilation of Esophagogastric Junction, Via Natural or Artificial Opening Endoscopic (ICD-10-PCS; principal; 2017-11-12 10:00)
PROC: 0DB98ZX Excision of Duodenum, Via Natural or Artificial Opening Endoscopic, Diagnostic (ICD-10-PCS; 2017-11-12 10:00)
DX: E11.10 Type 2 diabetes mellitus with ketoacidosis without coma (principal); N17.9 Acute kidney failure, unspecified; G62.9 Polyneuropathy, unspecified; I48.91 Unspecified atrial fibrillation; R13.10 Dysphagia, unspecified; E83.39 Other disorders of phosphorus metabolism; E87.1 Hypo-osmolality and hyponatremia; I10 Essential (primary) hypertension; I25.10 Atherosclerotic heart disease of native coronary artery without angina pectoris; K86.89 Other specified diseases of pancreas; F32.9 Major depressive disorder, single episode, unspecified; E86.0 Dehydration; D72.829 Elevated white blood cell count, unspecified; E78.00 Pure hypercholesterolemia, unspecified; R07.9 Chest pain, unspecified; H91.90 Unspecified hearing loss, unspecified ear; E87.6 Hypokalemia; F41.9 Anxiety disorder, unspecified; R53.1 Weakness; K21.9 Gastro-esophageal reflux disease without esophagitis; G25.81 Restless legs syndrome; N40.0 Benign prostatic hyperplasia without lower urinary tract symptoms; Z90.49 Acquired absence of other specified parts of digestive tract; Z87.442 Personal history of urinary calculi; Z79.4 Long term (current) use of insulin; Z91.14 Patient's other noncompliance with medication regimen; Z79.01 Long term (current) use of anticoagulants; Z86.73 Personal history of transient ischemic attack (TIA), and cerebral infarction without residual deficits; Z95.1 Presence of aortocoronary bypass graft; Z89.412 Acquired absence of left great toe; Z87.891 Personal history of nicotine dependence; Z91.19 Patient's noncompliance with other medical treatment and regimen; Z95.5 Presence of coronary angioplasty implant and graft
CPT/HCPCS: 36600; 74177; 74230; 80048; 80053; 80069; 81001; 82010; 82550; 82805; 82948; 83036; 83690; 83735; 84100; 84155; 84439; 84443; 84484; 85025; 85610; 85730; 86301; 87641; 88305; 88312; 93005; 96361; 96372; 96374; 96375; C1769; C9113; J1650; J1815; J1817; J2370; J2405; J2765; J3480; J7030; J7040; J7042; J7050; Q9967